=== PATIENT | female | born 1930 | race Caucasian/White ===

== ENCOUNTER 2016-07-28 06:47 | Emergency (ER) | payer MEDICARE ==
[~2016-07-28] VITALS: Ht 157.5 cm; Wt 58.5 kg
[~2016-07-28 06:47] MED LIST: ALPR0.5T PO; APIX2.5T PO; CEPH-264 PO; DIGO125T PO; DILT180C29 PO; DILT240C2 PO; DILT300C23 PO; LEVO88TA4 PO; LISI-334 PO; METO25TA9 PO; OMEP40CA5 PO; POTA10TA17 PO; SULF1TAB24 PO; TAMS0.4C97 PO; WARF5TAB PO; WARF5TAB7 PO; WARF7.5T6 PO; ZOLP10TA PO; ZOLP10TA4 PO; [UNRECOGNIZED DRUG - CODE] PO
[2016-07-28] MEDS ORDERED: ACETAMINOPHEN 500 MG TABLET PO ONE (07:30)
[2016-07-28] MEDS ORDERED: LIDOCAINE 1%/EPI 1:100,000 20 ML VIAL. IJ ONE (07:30)
[2016-07-28] MEDS ORDERED: LIDOCAINE/EPI/TETRACAINE TOPICAL GEL 3 ML. TP ONE (07:45)
--- NOTE | 2016-07-28 07:56 | RAD ---
Right tibia and fibula, 2 views, 07/28/2016: History: Injury, laceration The bony structures are demineralized. No fracture is identified. There is a soft tissue defect along the medial aspect of the lower leg. IMPRESSION: 1. Demineralization. 2. No acute bony abnormality is detected.
--- NOTE | 2016-07-28 08:03 | PHYS DOC ---
Past Medical History Past Medical History: A-Fib, GERD, High Cholesterol, Hypertension, Hypothyroid Past Surgical History: Appendectomy, Cholecystectomy, , Hysterectomy, Tonsillectomy Alcohol Use: None Drug Use: None Adult General Chief Complaint Chief Complaint: LACERATION/AVULSION [facility] HPI Patient is a 86 year old female who presents with right leg pain and laceration after her husbands home oxygen tank fell and hit her in the leg this morning. Her bleeding is controlled. She has local pain to the area of injury with shooting pains through her medial foot. She denies sensory changes. She is able to ambulate. She denies other injury. States tetanus vaccine within the past 2 years. Review of Systems Review of Systems Constitutional: Denies fever or chills [] Eyes: Denies change in visual acuity, redness, or eye pain [] HENT: Denies nasal congestion or sore throat [] Respiratory: Denies cough or shortness of breath [] Cardiovascular: No additional information not addressed in HPI [] GI: Denies abdominal pain, nausea, vomiting, bloody stools or diarrhea [] : Denies dysuria or hematuria [] Musculoskeletal: Denies back pain [] Integument: Denies rash [] Neurologic: Denies headache, focal weakness or sensory changes [] Endocrine: Denies polyuria or polydipsia [] Current Medications Current Medications Current Medications Medications (Trade) Dose Ordered Sig/Carmen Start Time Stop Time Status Last Admin Dose Admin Acetaminophen (Tylenol) 500 mg 1X ONCE 07/28/16 07:30 07/28/16 07:31 DC 07/28/16 07:25 500 MG Lidocaine/ Epinephrine (Let Topical) 3 ml 1X ONCE 07/28/16 07:45 07/28/16 07:46 DC 07/28/16 07:59 3 ML Lidocaine/ Epinephrine (Xylocaine 1%-Epi 1:100,000) 20 ml 1X ONCE 07/28/16 07:30 07/28/16 07:31 DC 07/28/16 07:25 20 ML Allergies Allergies Allergies Coded Allergies Type Severity Reaction Last Updated Verified codeine Allergy Severe Shortness of Air 08/25/14 Yes promethazine Allergy Severe Anaphylaxis 08/25/14 Yes Physical Exam Physical Exam Constitutional: Well developed, well nourished, no acute distress, non-toxic appearance. [] HENT: Normocephalic, atraumatic, bilateral external ears normal, oropharynx moist, nose normal. [] Eyes: PERRLA, EOMI. [] Neck: Normal range of motion, supple. [] Cardiovascular:Heart rate regular rhythm [] Lungs & Thorax: Bilateral breath sounds clear to auscultation [] Abdomen: Bowel sounds normal, soft, no tenderness. [] Skin: Warm, dry, no erythema, no rash. [] Back: Normal range of motion. [] Extremities: RLE: No obvious bony deformity; has 7cm V-shaped gaping laceration with fatty exposure to distal medial leg proximal to the ankle with no active bleeding; Has local soft tissue tenderness with no bony tenderness; knee full rom, ankle df/pf, toes df/pf; SILT [place]/sa/sp/dp/tib distributions; equal dp and pt pulses bilaterally. Ambulatory with a steady gait. Neurologic: Alert and oriented X 3, normal motor function, normal sensory function, no focal deficits noted. [] Psychologic: Affect normal, judgement normal, mood normal. [] Current Patient Data Vital Signs Vital Signs Date Time Temp Pulse Resp B/P Pulse Ox O2 Delivery O2 Flow Rate FiO2 07/28/16 09:10 82 18 179/92 96 Room Air 07/28/16 07:10 97.8 97.8 Radiology/Procedures Radiology/Procedures X-ray right tib-fib as interpreted by me with no acute osseous abnormality, obvious soft tissue defect at distal portion of leg Course & Med Decision Making Course & Med Decision Making Pertinent Labs and Imaging studies reviewed. (See chart for details) She tolerated lac repair well. She is ambulatory with a steady gait and wants to go home. Return precautions given. She understood and agrees with plan. Dragon Disclaimer Dragon Disclaimer This electronic medical record was generated, in whole or in part, using a voice recognition dictation system. Laceration Repair Lac Repair Indication: Right leg laceration Procedure: The patient was placed in the appropriate position and anesthesia around the laceration was LET gel followed by lidocaine with epinephrine 8ml. The area was then cleaned with pressurized normal saline. The laceration was closed with 4-0 ethilon suture, #7 simple interrupted. The wound area was then dressed with gauze. Total repaired wound length: 7cm. The patient tolerated the procedure well. Complications: none. Departure Departure Impression: Primary Impression: Laceration of right lower leg Disposition: 01 HOME, SELF-CARE Condition: STABLE Referrals: MARTHA AVENDANO MD (PCP) Patient Instructions: Laceration Care, Adult, [id number] Additional Instructions: Your stitches need to be removed in 2 weeks. Use soap and water to keep it clean. Follow-up with your primary care doctor or return to the emergency department for suture removal. Return for any concerns otherwise. Problem Qualifiers Primary Impression: Laceration of right lower leg Encounter type: initial encounter Qualified Code: S81.811A - Laceration without foreign body, right lower leg, initial encounter Lisa LOPEZ MD Jul 28, 2016 08:03
[2016-07-28 09:10] VITALS: BP 179/92
== END 2016-07-28 09:14 | disposition home or self-care (01) ==
LOC: ER 06:47
DX: S81.811A Laceration without foreign body, right lower leg, initial encounter (principal); E78.00 Pure hypercholesterolemia, unspecified; I10 Essential (primary) hypertension; E03.9 Hypothyroidism, unspecified; Z88.5 Allergy status to narcotic agent; Z88.8 Allergy status to other drugs, medicaments and biological substances; W01.198A Fall on same level from slipping, tripping and stumbling with subsequent striking against other object, initial encounter; Y93.89 Activity, other specified; Y92.89 Other specified places as the place of occurrence of the external cause; Y99.8 Other external cause status
CPT/HCPCS: 12002; 73590; 99284; J3490

== ENCOUNTER → 2016-08-03 | Outpatient (CLI) | payer MEDICARE ==
[2016-07-28 09:10] VITALS: BP 179/92
[2016-08-03 12:45] LABS: CHOLESTEROL/HDL RATIO 2.9
--- NOTE | 2016-08-03 13:14 | RAD ---
APPROVED REPORT Patient Location: OUT-PATIENT Laterality:Bilateral Indications PAD Doppler Spectral Velocity Analysis Right Left pCCA 69/12 cm/spCCA 109/12 cm/s mCCA 68/14 cm/smCCA 89/13 cm/s dCCA 51/16 cm/sdCCA 65/19 cm/s Bulb 38/13 cm/sBulb 76/15 cm/s ECA 107/ cm/sECA 63/ cm/s pICA 99/28 cm/spICA 156/44 cm/s Reji 100/22 cm/smICA 119/33 cm/s dICA 84/27 cm/sdICA 104/26 cm/s Vert. 54/ cm/sVert. 47/ cm/s Subcl. 90/ cm/sSubcl. 135/ cm/s ICA/CCA 1.45ICA/CCA 1.43 Findings Grayscale images of the bilateral common carotid arteries, internal and external carotid arteries as well as vertebral were obtained. The right arterial system has mild to moderate intimal thickening b ut no gross evidence of obstructive plaque. The left internal carotid artery has moderate obstructiv e plaque in the proximal segment. There is also moderate diffuse atherosclerosis of the carotid bulb on the left side. Velocity profiles on the right arterial system did not demonstrate any evidence of high-grade stenosi s. On the left at the level of the proximal internal carotid artery there is approximately a 50-69% stenosis based on velocity criteria. Although the ICA to CCA ratio is less than 2 based on flow turb ulence this appears to be a moderate lesion. Bilateral vertebral velocities are antegrade. No obvious increase in velocities in the subclavian ve ssels bilaterally. Critical Notification Critical Value: No <Conclusion> 1. Moderate 50-69% stenosis of the left internal carotid artery. Otherwise no significant obstructi ve disease.
== END | disposition home or self-care (01) ==
LOC: US 11:44
PROVIDERS: ATTEND Internal Medicine Cardiovascular Disease
DX: I25.10 Atherosclerotic heart disease of native coronary artery without angina pectoris (principal); I65.22 Occlusion and stenosis of left carotid artery; I73.9 Peripheral vascular disease, unspecified; E78.5 Hyperlipidemia, unspecified
CPT/HCPCS: 36415; 80061; 93880

== ENCOUNTER 2016-10-02 22:28 | Inpatient (IN) | payer MEDICARE ==
[~2016-10-02] VITALS: Ht 157.5 cm; Wt 56.2 kg
[~2016-10-02 22:28] MED LIST changes: +WARF-78 PO; -WARF5TAB PO
--- NOTE | 2016-10-02 22:58 | PHYS DOC ---
Past Medical History Past Medical History: A-Fib, GERD, High Cholesterol, Hypertension, Hypothyroid Past Surgical History: Appendectomy, Cholecystectomy, , Hysterectomy, Tonsillectomy Alcohol Use: None Drug Use: None Adult General Chief Complaint Chief Complaint: DIZZY/LIGHT HEADED HPI HPI This is an 86 yo old female who felt dizzy lightheaded with some mild shortness of breath prior to arrival. She felt like she could lose consciousness but did not. She does have history of A. fib on Cardizem and eliquis. She states she feels mildly week upon arrival but denies any chest pain or SOB. She denies any headache. She denies any fever or chills. Review of Systems Review of Systems Constitutional: Denies fever or chills [] Eyes: Denies change in visual acuity, redness, or eye pain [] HENT: Denies nasal congestion or sore throat [] Respiratory: Denies cough or shortness of breath [] Cardiovascular: No additional information not addressed in HPI [] GI: Denies abdominal pain, nausea, vomiting, bloody stools or diarrhea [] : Denies dysuria or hematuria [] Musculoskeletal: Denies back pain or joint pain [] Integument: Denies rash or skin lesions [] Neurologic: Denies headache, focal weakness or sensory changes [] Endocrine: Denies polyuria or polydipsia [] Current Medications Current Medications Current Medications Medications (Trade) Dose Ordered Sig/Carmen Start Time Stop Time Status Last Admin Dose Admin Ondansetron HCl (Zofran) 4 mg PRN Q8HRS PRN 10/02/16 23:45 10/03/16 23:44 Allergies Allergies Allergies Coded Allergies Type Severity Reaction Last Updated Verified codeine Allergy Severe Shortness of Air 08/25/14 Yes promethazine Allergy Severe Anaphylaxis 08/25/14 Yes Physical Exam Physical Exam Constitutional: Well developed, well nourished, no acute distress, non-toxic appearance. [] HENT: Normocephalic, atraumatic, bilateral external ears normal, oropharynx moist, no oral exudates, nose normal. [] Eyes: PERRLA, EOMI, conjunctiva normal, no discharge. [] Neck: Normal range of motion, no tenderness, supple, no stridor. [] Cardiovascular:Heart rate regular with irregular rhythm, no murmur [] Lungs & Thorax: Bilateral breath sounds clear to auscultation [] Abdomen: Bowel sounds normal, soft, no tenderness, no masses, no pulsatile masses. [] Skin: Warm, dry, no erythema, no rash. [] Back: No tenderness, no CVA tenderness. [] Extremities: No tenderness, no cyanosis, no clubbing, ROM intact, no edema. [] Neurologic: Alert and oriented X 3, normal motor function, normal sensory function, no focal deficits noted. [] Psychologic: Affect normal, judgement normal, mood normal. [] Current Patient Data Vital Signs Vital Signs Date Time Temp Pulse Resp B/P Pulse Ox O2 Delivery O2 Flow Rate FiO2 10/02/16 23:30 70 16 149/65 96 Room Air 10/02/16 22:30 97.7 97.7 Lab Values Laboratory Tests Test 10/02/16 23:10 10/02/16 23:25 White Blood Count 7.9x10^3/uL (4.0-11.0) Red Blood Count 3.89x10^6/uL (3.50-5.40) Hemoglobin 12.3g/dL (12.0-15.5) Hematocrit 36.6% (36.0-47.0) Mean Corpuscular Volume 94fL (79-100) Mean Corpuscular Hemoglobin 32pg (25-35) Mean Corpuscular Hemoglobin Concent 34g/dL (31-37) Red Cell Distribution Width 16.3% (11.5-14.5) H Platelet Count 216x10^3/uL (140-400) Neutrophils (%) (Auto) 71% (31-73) Lymphocytes (%) (Auto) 21% (24-48) L Monocytes (%) (Auto) 6% (0-9) Eosinophils (%) (Auto) 1% (0-3) Basophils (%) (Auto) 1% (0-3) Neutrophils # (Auto) 5.6x10^3uL (1.8-7.7) Lymphocytes # (Auto) 1.6x10^3/uL (1.0-4.8) Monocytes # (Auto) 0.5x10^3/uL (0.0-1.1) Eosinophils # (Auto) 0.1x10^3/uL (0.0-0.7) Basophils # (Auto) 0.0x10^3/uL (0.0-0.2) Sodium Level 141mmol/L (136-145) Potassium Level 4.6mmol/L (3.5-5.1) Chloride Level 106mmol/L (98-107) Carbon Dioxide Level 25mmol/L (21-32) Anion Gap 10 (6-14) Blood Urea Nitrogen 16mg/dL (7-20) Creatinine 0.7mg/dL (0.6-1.0) Estimated GFR (Cockcroft-Gault) 79.3 Glucose Level 104mg/dL (70-99) H Calcium Level 8.9mg/dL (8.5-10.1) Troponin I Quantitative < 0.017ng/mL (0.000-0.055) Urine Collection Type Unknown Urine Color Yellow Urine Clarity Clear Urine pH 7.0 Urine Specific [place] 1.020 Urine Protein 30mg/dL (NEG-TRACE) Urine Glucose (UA) Negativemg/dL (NEG) Urine Ketones (Stick) Negativemg/dL (NEG) Urine Blood Negative (NEG) Urine Nitrite Negative (NEG) Urine Bilirubin Negative (NEG) Urine Urobilinogen Dipstick 0.2mg/dL (0.2 mg/dL) Urine Leukocyte Esterase Small (NEG) Urine RBC 0/HPF (0-2) Urine WBC 1-4/HPF (0-4) Urine Squamous Epithelial Cells Few/LPF Urine Bacteria Few/HPF (0-FEW) Urine Hyaline Casts Few/HPF Urine Mucus Marked/LPF Laboratory Tests 10/02/16 23:10 Laboratory Tests 10/02/16 23:10 EKG EKG EKG as interpreted by me shows an irregular rhythm with a rate of 64 bpm. There is some prolonged QT interval at 468 ms with a QTc interval of 482 ms. This is consistent with atrial fibrillation with a slow ventricular response. This EKG does not meet STEMI criteria. Radiology/Procedures Radiology/Procedures [] Course & Med Decision Making Course & Med Decision Making Pertinent Labs and Imaging studies reviewed. (See chart for details) This 86-year-old female is having symptomatic feeling of lightheadedness and dizziness with some mild shortness breath prior to arrival now feels improved upon rest and denies any shortness of breath. Her EKG does reveal atrial fibrillation which she has had before but there does appear to be a slow ventricular response. After workup was unremarkable. Her EKG does show atrial fibrillation with a slow ventricular response. Light of fact that she is having some weakness upon my evaluation I will be admitting her to the hospital under the hospitalist, Dr. Avendano, for further evaluation. I discussed the case with Dr. Avendano who agreed to accept the patient for further evaluation treatment. Dragon Disclaimer Dragon Disclaimer This electronic medical record was generated, in whole or in part, using a voice recognition dictation system. Departure Departure Impression: Primary Impression: Syncope Additional Impression: Atrial fibrillation Disposition: ADMITTED INPATIENT Admitting Physician: Martha Avendano Condition: STABLE Referrals: MARTHA AVENDANO MD (PCP) Problem Qualifiers DENTON LINARES DO Oct 02, 2016 22:58
[2016-10-02 23:30] LABS: BASO % 1 % (0-3); EOS % 1 % (0-3); HEMATOCRIT 36.6 % (36.0-47.0); HEMOGLOBIN 12.3 g/dL (12.0-15.5); LYMPH # 1.6 x10^3/uL (1.0-4.8); LYMPH % 21 % (24-48); MEAN CORPUSCULAR HEMOGLOBIN 32 pg (25-35); MEAN CORPUSCULAR HGB CONC 34 g/dL (31-37); MEAN CORPUSCULAR VOLUME 94 fL (79-100); MONO % 6 % (0-9); NEUT % 71 % (31-73); PLATELET COUNT 216 x10^3/uL (140-400); RED BLOOD COUNT 3.89 x10^6/uL (3.50-5.40); RED CELL DISTRIBUTION WIDTH 16.3 % (11.5-14.5); WHITE BLOOD COUNT 7.9 x10^3/uL (4.0-11.0)
[2016-10-02 23:32] LABS: BILIRUBIN,URINE NEGATIVE (NEG); GLUCOSE,URINE NEGATIVE (NEG); NITRITE,URINE NEGATIVE (NEG); PROTEIN,URINE 30 mg/dL (NEG-TRACE); UROBILINOGEN,URINE 0.2 mg/dL (0.2 mg/dL)
[2016-10-02 23:38] LABS: BACTERIA,URINE FEW /HPF (0-FEW); RBC,URINE 0 /HPF (0-2); SQUAMOUS EPITHELIAL CELL,UR FEW /LPF
[2016-10-02 23:42] LABS: CALCIUM 8.9 mg/dL (8.5-10.1); CREATININE 0.7 mg/dL (0.6-1.0); GFR 79.3; POTASSIUM 4.6 mmol/L (3.5-5.1)
[2016-10-02] MEDS ORDERED: ONDANSETRON PF 4 MG/2 ML VIAL. IV PRN (23:45)
[2016-10-03] VITALS (7 sets, daily range): BP systolic 111–171; BP diastolic 55–82
--- NOTE | 2016-10-03 01:51 | ACF ---
Admit Criteria Forms Admit Criteria Forms Admit Criteria Forms SYNCOPE Clinical Indications for Admission to Inpatient Care ( Place 'X' for any and all applicable criteria): Admission is indicated for syncope and ANY ONE of the following (1)(2)(3)(4)(5) (6)(7) : [X]I. Inpatient admission required rather than observation care (Also use Syncope: Observation Care Criteria as appropriate) because of ANY ONE of the following: [ ]a) Hemodynamic instability that is severe or persistent [X]b) Cardiac arrhythmias of immediate concern identified or strongly suspected (eg, needs electrophysiologic study) [ ]c) Acute coronary syndrome identified (Also use Myocardial Infarction or Angina Criteria form ) [ ]d) Structural cardiac disorder (eg, aortic stenosis) suspected as cause that requires immediate correction [ ]e) Respiratory symptoms (eg, dyspnea, tachypnea) that are severe or persistent [ ]f) Neurologic signs or symptoms that are severe or persistent ( eg, stroke, seizures, altered mental status) [ ]g) Severe electrolyte abnormalities requiring inpatient care [ ]h) Supplemental oxygen or respiratory treatment for over 24 hrs that are performable only in acute inpatient setting [ ]i) IV fluid to replace significant ongoing (eg, for over 24 hrs ) losses (>3 L/m2 per day) [ ]j) Continuous intravenous infusion of anticoagulation, platelet inhibitor, vasoactive, or antiarrhythmic medication(15)(16) [ ]k) Pulmonary artery catheter monitoring [ ]l) Temporary pacemaker placement(17) [ ]m) Emergent cardioversion(18) [ ]n) Other conditions, treatment or monitoring requiring inpatient admission [ ]II. Suspicion of imminently dangerous cause (eg, rare causes like pericardial tamponade, pulmonary embolism) [ ]III. Syncope causing severe injury requiring hospitalization Extended stay beyond goal length of stay may be needed for(28) [ ]a) Dangerous arrhythmia(15)(23)(27)(29) [ ]b) Myocardial ischemia [ ]c) Seizure disorder [ ]d) Syncope-related injuries The original [facility] [employer] content created by [facility] [employer] has been revised. The portions of the content which have been revised are identified through the use of italic text or in bold, and [facility] [employer] has neither reviewed nor approved the modified material. All other unmodified content is copyright [facility] [employer]. Please see references footnoted in the original [facility] edition 2016 NAZIA ALONZO Oct 03, 2016 01:51
--- NOTE | 2016-10-03 07:11 | EKG ---
[facility] [address] [place] [address] Test Date: 2016-10-02 Test Time: 22:35:01 Pat Name: BILL CRUZ Department: Room: 438 1 Gender: F [employer]andy [employer]utter Machine: : [id number] Requested By: DENTON LINARES Order Number: [id number] Reading MD: Marylin Olmedo Measurements Intervals [place] Rate: 64 P: MA: QRS: -19 QRSD: 86 T: 16 QT: 468 QTc: 482 Interpretive Statements ATRIAL FIBRILLATION LEFTWARD AXIS QRS(T) CONTOUR ABNORMALITY CONSIDER ANTEROSEPTAL MYOCARDIAL DAMAGE Electronically Signed On 10-03-2016 19:23:44 CDT by Marylin Olmedo
--- NOTE | 2016-10-03 07:43 | RAD ---
EXAM: Chest, single view. HISTORY: Syncope. COMPARISON: 04/08/2016. FINDINGS: A frontal view of the chest is obtained. There is no infiltrate, effusion or pneumothorax. There is stable mild interstitial prominence. There is stable cardiomegaly. IMPRESSION: 1. No acute pulmonary finding. 2. Stable mild cardiomegaly.
--- NOTE | 2016-10-03 11:47 | PDOC2 ---
CONSULT Date of Consult Date of Consult DATE: 10/03/16 TIME: 11:40 Reason for Consult Reason for Consult: Syncope. Referring Physician Referring Physician: Dr. Feng Identification/Chief Complaint Chief Complaint passing out Source Source: Patient History of Present Illness Reason for Visit: The patient is a pleasant 86-year-old female with a history of chronic atrial fibrillation reports feeling lightheaded and having a near syncopal a possible syncopal episode yesterday. Her family reports she stated feeling weak and dizzy and then appears to be have become nonresponsive for 10-20 seconds. She then awoke and reported continued to feel lightheaded and dizzy. She denies any chest pain. She denies any shortness of breath. EKG in the ER showed atrial fibrillation. This is been chronic and treated with Eliquis and rate control medications. This morning she is feeling much better. She denies any dizziness, chest pain, shortness of breath or lightheadedness today. She is followed in the office on a regular basis. Past Medical History Cardiovascular: AFIB, HTN, Syncope, Hyperlipidemia Pulmonary: No pertinent hx CENTRAL NERVOUS SYSTEM: Other GI: GERD Heme/Onc: No pertinent hx, Other Hepatobiliary: No pertinent hx Psych: Anxiety Musculoskeletal: Osteoarthritis Rheumatologic: No pertinent hx Infectious disease: No pertinent hx Endocrine: Hypothyroidism Past Surgical History Past Surgical History: Appendectomy, Cholecystectomy, , Tonsillectomy , Hysterectomy Family History Family History: Heart Disease Social History No ALCOHOL: none Drugs: None Lives: with Family Current Problem List Problem List Problems Medical Problems: (1) Atrial fibrillation Status: Acute (2) Syncope Status: Acute Current Medications Current Medications Current Medications Ondansetron HCl (Zofran) 4 mg PRN Q8HRS PRN IV NAUSEA/VOMITING; Start 10/02/16 at 23:45; Stop 10/03/16 at 23:44 Active Scripts Active Diltiazem 24HR Cd (Diltiazem Hcl) 300 Mg Cap.er.24h 300 Mg PO DAILYWSUP sig: one p.o. daily with evening meal Keflex (Cephalexin) 500 Mg Capsule 2 Cap PO BID Eliquis (Apixaban) 2.5 Mg Tablet 2.5 Mg PO BID Reported Metoprolol Succinate ( Xl ) (Metoprolol Succinate) 25 Mg Tab.er.24h 1 Tab PO DAILY Zolpidem Tartrate 10 Mg Tablet 0.5 Tab PO QHS Omeprazole 40 Mg Capsule.dr 1 Cap PO DAILY Levothyroxine Sodium 88 Mcg Tablet Unknown Dose PO DAILY Potassium Citrate 10 Meq Tablet.er 1 Tab PO TID Allergies Allergies: Coded Allergies: codeine (Verified Allergy, Severe, Shortness of Air, 08/25/14) promethazine (Verified Allergy, Severe, Anaphylaxis, 08/25/14) pt stated that they called a code blue upon taking it ROS General: YES: Fatigue PSYCHOLOGICAL ROS: YES: Anxiety Cardiovascular: yes Lt Headedness, yes Other (syncope) Physical Exam General: No acute distress HEENT: Atraumatic Lungs: Clear to auscultation Heart: Other (irregularly irregular) Abdomen: Normal bowel sounds Extremities: No clubbing Vitals VITALS Vital Signs Date Time Temp Pulse Resp B/P Pulse Ox O2 Delivery O2 Flow Rate FiO2 10/03/16 10:47 98.1 76 18 165/55 98 Room Air 98.1 Labs Labs Laboratory Tests Test 10/02/16 23:10 10/02/16 23:25 White Blood Count 7.9x10^3/uL (4.0-11.0) Red Blood Count 3.89x10^6/uL (3.50-5.40) Hemoglobin 12.3g/dL (12.0-15.5) Hematocrit 36.6% (36.0-47.0) Mean Corpuscular Volume 94fL (79-100) Mean Corpuscular Hemoglobin 32pg (25-35) Mean Corpuscular Hemoglobin Concent 34g/dL (31-37) Red Cell Distribution Width 16.3% (11.5-14.5) Platelet Count 216x10^3/uL (140-400) Neutrophils (%) (Auto) 71% (31-73) Lymphocytes (%) (Auto) 21% (24-48) Monocytes (%) (Auto) 6% (0-9) Eosinophils (%) (Auto) 1% (0-3) Basophils (%) (Auto) 1% (0-3) Neutrophils # (Auto) 5.6x10^3uL (1.8-7.7) Lymphocytes # (Auto) 1.6x10^3/uL (1.0-4.8) Monocytes # (Auto) 0.5x10^3/uL (0.0-1.1) Eosinophils # (Auto) 0.1x10^3/uL (0.0-0.7) Basophils # (Auto) 0.0x10^3/uL (0.0-0.2) Sodium Level 141mmol/L (136-145) Potassium Level 4.6mmol/L (3.5-5.1) Chloride Level 106mmol/L (98-107) Carbon Dioxide Level 25mmol/L (21-32) Anion Gap 10 (6-14) Blood Urea Nitrogen 16mg/dL (7-20) Creatinine 0.7mg/dL (0.6-1.0) Estimated GFR (Cockcroft-Gault) 79.3 Glucose Level 104mg/dL (70-99) Calcium Level 8.9mg/dL (8.5-10.1) Troponin I Quantitative < 0.017ng/mL (0.000-0.055) Urine Collection Type Unknown Urine Color Yellow Urine Clarity Clear Urine pH 7.0 Urine Specific [place] 1.020 Urine Protein 30mg/dL (NEG-TRACE) Urine Glucose (UA) Negativemg/dL (NEG) Urine Ketones (Stick) Negativemg/dL (NEG) Urine Blood Negative (NEG) Urine Nitrite Negative (NEG) Urine Bilirubin Negative (NEG) Urine Urobilinogen Dipstick 0.2mg/dL (0.2 mg/dL) Urine Leukocyte Esterase Small (NEG) Urine RBC 0/HPF (0-2) Urine WBC 1-4/HPF (0-4) Urine Squamous Epithelial Cells Few/LPF Urine Bacteria Few/HPF (0-FEW) Urine Hyaline Casts Few/HPF Urine Mucus Marked/LPF Laboratory Tests Test 10/02/16 23:10 10/02/16 23:25 White Blood Count 7.9x10^3/uL (4.0-11.0) Red Blood Count 3.89x10^6/uL (3.50-5.40) Hemoglobin 12.3g/dL (12.0-15.5) Hematocrit 36.6% (36.0-47.0) Mean Corpuscular Volume 94fL (79-100) Mean Corpuscular Hemoglobin 32pg (25-35) Mean Corpuscular Hemoglobin Concent 34g/dL (31-37) Red Cell Distribution Width 16.3% (11.5-14.5) Platelet Count 216x10^3/uL (140-400) Neutrophils (%) (Auto) 71% (31-73) Lymphocytes (%) (Auto) 21% (24-48) Monocytes (%) (Auto) 6% (0-9) Eosinophils (%) (Auto) 1% (0-3) Basophils (%) (Auto) 1% (0-3) Neutrophils # (Auto) 5.6x10^3uL (1.8-7.7) Lymphocytes # (Auto) 1.6x10^3/uL (1.0-4.8) Monocytes # (Auto) 0.5x10^3/uL (0.0-1.1) Eosinophils # (Auto) 0.1x10^3/uL (0.0-0.7) Basophils # (Auto) 0.0x10^3/uL (0.0-0.2) Sodium Level 141mmol/L (136-145) Potassium Level 4.6mmol/L (3.5-5.1) Chloride Level 106mmol/L (98-107) Carbon Dioxide Level 25mmol/L (21-32) Anion Gap 10 (6-14) Blood Urea Nitrogen 16mg/dL (7-20) Creatinine 0.7mg/dL (0.6-1.0) Estimated GFR (Cockcroft-Gault) 79.3 Glucose Level 104mg/dL (70-99) Calcium Level 8.9mg/dL (8.5-10.1) Troponin I Quantitative < 0.017ng/mL (0.000-0.055) Urine Collection Type Unknown Urine Color Yellow Urine Clarity Clear Urine pH 7.0 Urine Specific [place] 1.020 Urine Protein 30mg/dL (NEG-TRACE) Urine Glucose (UA) Negativemg/dL (NEG) Urine Ketones (Stick) Negativemg/dL (NEG) Urine Blood Negative (NEG) Urine Nitrite Negative (NEG) Urine Bilirubin Negative (NEG) Urine Urobilinogen Dipstick 0.2mg/dL (0.2 mg/dL) Urine Leukocyte Esterase Small (NEG) Urine RBC 0/HPF (0-2) Urine WBC 1-4/HPF (0-4) Urine Squamous Epithelial Cells Few/LPF Urine Bacteria Few/HPF (0-FEW) Urine Hyaline Casts Few/HPF Urine Mucus Marked/LPF Assessment/Plan Assessment/Plan 1. Syncope. Episode of syncope as above associated with weakness and lightheadedness. Patient has chronic rate controlled atrial fibrillation on anticoagulation. Rhythm of the present time is an atrial fibrillation rate of 64. At this time to continue on telemetry. We'll recheck an echocardiogram. We' ll gradually increase activities while being monitored. 2. Hypertension. Continue medications with monitoring the patient's hypertension and orthostatics. 3. Hyperlipidemia. We'll check a lipid panel. 4. Hypothyroidism. TSH pending. 5. Gastroesophageal reflux disease. Continue present treatments. Thank you for allowing us to participate in the care of your patient. VIRIDIANA RAMIREZ MD Oct 03, 2016 11:47
[2016-10-03] MEDS ORDERED: ZOLPIDEM 5 MG TABLET. PO PRN (12:15)
--- NOTE | 2016-10-03 12:45 | PDOC ---
Provider Note Provider Note See admission H&P dictation #[id number] Impression: 1. Syncopal episode: 2. Atrial fibrillation with slow ventricular response: 3. Hypothyroidism: 4. Mildly abnormal UA: MARTHA AVENDANO MD Oct 03, 2016 12:45
[2016-10-03] MEDS ORDERED: ANTI-COAG MONITOR BY PHARMACY. MC PRN (13:00)
[2016-10-03] MEDS: PANTOPRAZOLE 40 MG TABLET.DR. PO SCH (14:03)
[2016-10-03] MEDS: APIXABAN 2.5 MG TABLET. PO SCH ×2 (14:03→20:30)
[2016-10-03] MEDS: POTASSIUM CITRATE 10 MEQ TABLET.ER PO SCH ×2 (14:03→20:30)
[2016-10-03] MEDS: LEVOTHYROXINE 88 MCG TABLET PO SCH (14:03)
[2016-10-03] MEDS ORDERED: ACETAMINOPHEN 325 MG TABLET. PO PRN (23:00)
--- NOTE | 2016-10-04 01:35 | HP ---
ADMIT DATE: 10/02/2016 ATTENDING PHYSICIAN: Martha Avendano M.D. CHIEF COMPLAINT: Syncope. HISTORY OF PRESENT ILLNESS: The patient is an 86-year-old female with a history of chronic atrial fibrillation and hypothyroidism. On the night prior to admission, she went to lay down and she started to have worsening shortness of breath and feeling like she could not breathe. She is not aware that her heart was beating excessively faster or not, it is always irregular, when she sat up she felt like she was able agree little bit better. If she tried to lay down she had more shortness of breath and she actually feels like she had a syncopal episode where she was unconscious for several seconds. Due to her worsening shortness of breath, she presented to the Emergency Room for further evaluation. She has been compliant with all of her medications. There is nothing unusual as far as her diet or activity through the day. She denied any chest pain. She has not had any lower extremity swelling. PAST MEDICAL HISTORY: Significant for prior TIA manifested by dysarthria, chronic atrial fibrillation, hypertension, hyperlipidemia, hypothyroidism, peripheral arterial disease, recurrent kidney stones. PAST SURGICAL HISTORY: Total hysterectomy, cholecystectomy, partial colectomy for bowel obstruction, appendectomy. SOCIAL HISTORY: She lives at home with her who she provides a significant amount of his care due to his end-stage COPD. She is a former smoker and quit in 2010. She very rarely uses alcohol. There is no substance abuse. ALLERGIES TO MEDICATIONS: CODEINE. MEDICATIONS: At home include Eliquis 2.5 mg p.o. b.i.d., diltiazem CD 300 mg p.o. daily, levothyroxine 88 mcg p.o. daily, Toprol-XL 25 mg p.o. daily, omeprazole 40 mg p.o. daily, potassium citrate 10 mEq p.o. t.i.d., Ambien 10 mg one half tablet at bedtime p.r.n. FAMILY HISTORY: Hypertension in her brothers and sisters. REVIEW OF SYSTEMS: The patient denies any recent illnesses. She denies any headaches. She does have fatigue that is relatively chronic. She is having some right shoulder, neck, muscle pain with spasm. She is swallowing without any difficulty. She denies any cough. She denies any chest pain. She denies any nausea, vomiting, diarrhea or constipation. She denies any melena. She is not having any urinary symptoms other than that, she goes frequently, but she does drink lots of fluids on daily basis. She denies any lower extremity swelling. She denies any focal paresthesia or weakness. She does still have some ankle pain from an injury sustained within the last year or so, but she does ambulate independently. Mood is doing good, although she does worry about her . She is still grieving her son who within the last year. PHYSICAL EXAMINATION: VITAL SIGNS: At the time of admission, temperature 97.7, pulse 65, respiratory rate 19, blood pressure 138/79, O2 sat 96% on room air. GENERAL: The patient is well developed and nourished female in no acute distress. She is alert and oriented. HEENT: The pupils are equal and round. The extraocular motions are intact. The sclerae are anicteric. Oropharynx is moist. NECK: Without JVD or bruit. CHEST: Clear to auscultation bilaterally with slightly decreased air movement throughout. CARDIOVASCULAR: Heart has an irregularly irregular rhythm without any murmur present. The rate appears to be controlled on telemetry it less than 100. ABDOMEN: Soft and nontender. There is no guarding or rebound. EXTREMITIES: Without edema. NEUROLOGIC: Motor strength is intact. Exam is nonfocal. PSYCHIATRIC: She is occasionally tearful when talking about her son, but otherwise she is appropriate. LABORATORY DATA: At the time of admission, WBC 7.9, hemoglobin 12.3, hematocrit 36.6, platelets 216. UA shows small amount of leukocyte esterase, 1-4 wbc's, few bacteria and marked mucus, few squamous epithelial cells. Troponin was less than 0.017. Sodium 141, potassium 4.6, chloride 106, CO2 of 25, BUN 16, creatinine 0.7, glucose 104. IMAGING: Chest x-ray shows no acute pulmonary findings with stable mild cardiomegaly. EKG shows an irregular rhythm with a rate of 64 with some prolonged QT interval at 468 milliseconds with a corrected QT interval 482 milliseconds, no evidence of ischemic changes. IMPRESSION: 1. Syncopal episode, likely due to atrial fibrillation with slow ventricular response. 2. Chronic atrial fibrillation with slow ventricular response. 3. Hypothyroidism. PLAN: The patient is admitted. She is placed on telemetry for monitoring. We will resume her Cardizem for now, but hold her Toprol and see how she does with that. We will continue her other medications. She is feeling much better already at this point in time. If she continues to do well and the echocardiogram that was ordered by Cardiology and consultation with them, then she could possibly be discharged tomorrow. MARTHA AVENDANO MD DR: SHARDA/mendy JOB#: [id number] / [id number] CLARI
[2016-10-04 03:04] VITALS: BP 152/78
[2016-10-04 04:15] LABS: CALCIUM 8.6 mg/dL (8.5-10.1); CREATININE 0.7 mg/dL (0.6-1.0); GFR 79.3; POTASSIUM 3.9 mmol/L (3.5-5.1)
[2016-10-04 04:16] LABS: CHOLESTEROL/HDL RATIO 2.9
[2016-10-04] MEDS: PANTOPRAZOLE 40 MG TABLET.DR. PO SCH (06:06)
[2016-10-04] MEDS: LEVOTHYROXINE 88 MCG TABLET PO SCH (06:06)
[2016-10-04 07:00] VITALS: BP 179/71
--- NOTE | 2016-10-04 08:27 | PDOC ---
SUBJECTIVE Subjective No problems last night. No shortness of breath. No chest pain. Contemplating possibly doing a pacemaker which was suggested in the past. OBJECTIVE Vital Signs Vital Signs Date Time Temp Pulse Resp B/P Pulse Ox O2 Delivery O2 Flow Rate FiO2 10/04/16 03:04 98.3 62 18 152/78 95 Room Air 98.3 10/03/16 23:24 98.3 62 18 111/63 98 Room Air 98.3 10/03/16 20:20 Room Air 10/03/16 19:59 97.9 80 18 152/64 95 Room Air 97.9 10/03/16 17:38 73 144/63 10/03/16 15:00 97.8 73 18 144/63 97 Room Air 97.8 10/03/16 10:47 98.1 76 18 165/55 98 Room Air 98.1 PHYSICAL EXAM Physical Exam General: No acute distress. Mental status: Alert and oriented. Chest: Clear to auscultation. Fair air movement CV: Rate controlled. Did have some episodes of tachycardia through the course of the night on telemetry. Irregularly irregular rhythm. No murmur. Abdomen: Normal bowel sounds. Soft. Not distended. No tenderness. No guarding. No rebound. Extremities: No lower extremity edema. ASSESSMENT/PLAN Assessment/Plan 1. Syncopal episode: Probably related to arrhythmia. Echocardiogram today. Continue per cardiology's recommendations. 2. Atrial fibrillation with slow ventricular response: Continue anticoagulation until decision made if there is going to be some procedure done. Restarted Cardizem. May need to restart a lower dose of the beta laura. Defer to cardiology. 3. Hypothyroidism: Stable. Continue medication. 4. Mildly abnormal UA: Room and reculture negative. 5. Disposition: Could go home today depending on cardiology's recommendations. Problems: COMMENT Lab Laboratory Tests Test 10/04/16 03:28 Sodium Level 146mmol/L (136-145) Potassium Level 3.9mmol/L (3.5-5.1) Chloride Level 110mmol/L (98-107) Carbon Dioxide Level 29mmol/L (21-32) Anion Gap 7 (6-14) Blood Urea Nitrogen 12mg/dL (7-20) Creatinine 0.7mg/dL (0.6-1.0) Estimated GFR (Cockcroft-Gault) 79.3 Glucose Level 88mg/dL (70-99) Calcium Level 8.6mg/dL (8.5-10.1) Triglycerides Level 57mg/dL (0-150) Cholesterol Level 189mg/dL (0-200) LDL Cholesterol, Calculated 112mg/dL (0-100) VLDL Cholesterol, Calculated 11mg/dL (0-40) HDL Cholesterol 66mg/dL (40-60) Cholesterol/HDL Ratio 2.9 Thyroid Stimulating Hormone (TSH) 2.193uIU/mL (0.358-3.74) MARTHA AVENDANO MD Oct 04, 2016 08:27
[2016-10-04 11:00] VITALS: BP 165/82
--- NOTE | 2016-10-04 12:01 | PDOC ---
EBER MELISSA COOLING TOWER OPERATOR 10/04/16 1201: CARDIO Progress Notes Date and Time Date of Service 10/02/2016 Time of Evaluation 1151 Subjective Subjective: No Chest Pain, No shortness of breath, No Palpitations, No Dizziness, Other (no further syncope; wants to go home) Vitals Vitals Vital Signs Date Time Temp Pulse Resp B/P Pulse Ox O2 Delivery O2 Flow Rate FiO2 10/04/16 07:00 97.8 74 18 179/71 97 Room Air 97.8 Weight Weight [ ] Laboratory Labs Laboratory Tests Test 10/04/16 03:28 Sodium Level 146mmol/L (136-145) Potassium Level 3.9mmol/L (3.5-5.1) Chloride Level 110mmol/L (98-107) Carbon Dioxide Level 29mmol/L (21-32) Anion Gap 7 (6-14) Blood Urea Nitrogen 12mg/dL (7-20) Creatinine 0.7mg/dL (0.6-1.0) Estimated GFR (Cockcroft-Gault) 79.3 Glucose Level 88mg/dL (70-99) Calcium Level 8.6mg/dL (8.5-10.1) Triglycerides Level 57mg/dL (0-150) Cholesterol Level 189mg/dL (0-200) LDL Cholesterol, Calculated 112mg/dL (0-100) VLDL Cholesterol, Calculated 11mg/dL (0-40) HDL Cholesterol 66mg/dL (40-60) Cholesterol/HDL Ratio 2.9 Thyroid Stimulating Hormone (TSH) 2.193uIU/mL (0.358-3.74) Microbiology Micro Microbiology 10/02/16 Urine Culture - Preliminary, Resulted 10/02/16 Urine Culture Result 1 (KIM) - Preliminary, Resulted Physical Exam HEENT: Neck Supple W Full Motion Chest: Symmetric LUNGS: Clear to Auscultation Heart: S1S2, irregularly irregular, other (tele: atrial fib; intermittent RVR; no evidence of bradycardia) Abdomen: Soft N/T Extremities: No Edema Neurology: alert, oriented, follow commands Assessment Assessment 1. syncope no bradydysrhythmias on telemetry and currently without indication for PPM also reviewed last 2 office notes and no indication there of need for PPM intermittent RVR - likely related to cessation of beta-blockers consider event monitor @ discharge 2. chronic atrial fib on Eliquis for stroke prevention BB held after ? of syncope; currently treated only with CCB and rate poorly controlled - recommend resuming BB and giving in the a.m. TSH WNL 3. Hypertension mildly elevated - ? BB related 4. Hyperlipidemia LDLs > 100 statin intolerance ESTEBAN WILLAMS MD 10/04/16 2206: CARDIO Progress Notes Plan Plan Pt. seen and examined. Agree with above GANG LEADER note. No acute events overnight. No new tele abn. Normal cardiac exam with irregular heart rhythm syncope of unclear etiology, cannot rule out bradyarrhythmia. By patients description, does not appear to be tachyarrhythmia We have placed a monitor on her. I discussed possibility of pacemaker with her She understands. Will await results of monitor, may then consider implantable loop recorder. EBER MELISSA COOLING TOWER OPERATOR Oct 04, 2016 12:01 ESTEBAN WILLAMS MD Oct 04, 2016 22:06
[2016-10-04] MEDS: APIXABAN 2.5 MG TABLET. PO SCH (12:59)
[2016-10-04] MEDS: POTASSIUM CITRATE 10 MEQ TABLET.ER PO SCH ×2 (13:00→16:07)
[2016-10-04 15:00] VITALS: BP 154/83
--- NOTE | 2016-10-04 16:49 | DISCH ---
DISCHARGE INSTRUCTIONS Condition on Discharge Condition on Discharge: Stable Activity After Discharge Activity Instructions for Disc: Activity as tolerated Diet after Discharge Diet after Discharge: Cardiac Contacting the DR. after DC Call your doctor for: If your condition worsens Follow-Up Follow up with: Dr Avendano in 1-2 weeks Follow Up With: Cardiology in 2 weeks MARTHA AVENDANO MD Oct 04, 2016 16:49
--- NOTE | 2016-10-14 12:51 | CARD ---
APPROVED REPORT EXAM: Two-dimensional and M-mode echocardiogram with Doppler and color Doppler. Other Information Quality : AverageHR: 82bpm Rhythm : Atrial Fibrillation INDICATION Syncope 2D DIMENSIONS RVDd3.5 (2.9-3.5cm)Left Atrium(2D)3.2 (1.6-4.0cm) IVSd0.8 (0.7-1.1cm)Aortic Root(2D)2.8 (2.0-3.7cm) LVDd4.5 (3.9-5.9cm)LVOT Diameter2.0 (1.8-2.4cm) PWd0.9 (0.7-1.1cm)LVDs3.0 (2.5-4.0cm) FS (%) 32.9 %SV57.0 ml LVEF(%)61.6 (>50%) Aortic Valve AoV Peak Bacilio.101.9cm/sAoV VTI18.2cm AO Peak GR.4.1mmHgLVOT Peak Bacilio.103.2cm/s LVOT VTI 21.01cmAO Mean GR.2mmHg GREGORY (VMAX)3.08sw2QWJ (VTI)3.68cm2 Mitral Valve MV E Dlcxjezr73.3cm/sMV DECEL KOIT144ya MV NRH04ijSCU (PHT)4.82cm2 Pulmonary Valve PV Peak Mdvrswnu40.7cm/sPV Peak Grad.3mmHg RVOT VTI11.1cm Tricuspid Valve TR P. Zdkepzcq829bc/sRAP [id number] TR Peak Gr.62ruAgOYJE79ffTm LEFT VENTRICLE The left ventricle is normal size. There is normal left ventricular wall thickness. Proximal septal t hickening is noted. Left ventricle systolic function is normal. The Ejection Fraction is 55-60%. Ther e is normal LV segmental wall motion. Unable to assess due to atrial fibrillation There is no ventric ular septal defect visualized. RIGHT VENTRICLE The right ventricle is normal size. The right ventricular systolic function is normal. ATRIA The left atrium size is normal. The right atrium appears borderline dilated. The interatrial septum i s intact with no evidence for an atrial septal defect or patent foramen ovale as noted on 2-D or Dopp ler imaging. AORTIC VALVE The aortic valve is moderately sclerotic. Doppler and Color Flow revealed mild to moderate aortic reg urgitation. There is no significant aortic valvular stenosis. MITRAL VALVE The mitral valve leaflets are calcified but open well . There is no evidence of mitral valve prolapse . There is no mitral valve stenosis. Doppler and Color Flow revealed mild mitral regurgitation. TRICUSPID VALVE The tricuspid valve leaflets are thickened , but open well. Doppler and Color Flow revealed moderate tricuspid regurgitation. There is no pulmonary hypertension. The PA pressure was estimated at 29 mmHg . There is no tricuspid valve stenosis. PULMONIC VALVE The pulmonary valve is normal in structure and function. Doppler and Color Flow revealed trace to mil d pulmonic valvular regurgitation. There is no pulmonic valvular stenosis. GREAT VESSELS The aortic root is normal in size. The ascending aorta is normal in size. Normal pulmonary venous kristy w (Doppler). The IVC is normal in size and collapses >50% with inspiration. PERICARDIAL EFFUSION There is no pleural effusion. There is no evidence of significant pericardial effusion. Critical Notification Critical Value: No <Conclusion> Left ventricle systolic function is normal. The Ejection Fraction is 55-60%. There is normal LV segmental wall motion. Mild to moderate aortic regurgitation. Mild mitral regurgitation. Moderate tricuspid regurgitation. The PA pressure was estimated at 29 mmHg. There is no evidence of significant pericardial effusion.
--- NOTE | 2016-11-11 07:29 | PDOC ---
Provider Note Provider Note See discharge summary dictation #[id number] MARTHA AVENDANO MD November 11, 2016 07:29
--- NOTE | 2016-11-11 09:43 | DS ---
DATE OF DISCHARGE: 10/04/2016 ATTENDING PHYSICIAN: Martha Avendano MD. CHIEF COMPLAINT: Syncope. HISTORY OF PRESENT ILLNESS: The patient is an 86-year-old female with a history of chronic atrial fibrillation who had worsening shortness of breath when she attempted to lie down for the night. She felt like she could not breath. She did not notice any sensation of tachycardia. She thinks that she may have actually had a syncopal episode due to the shortness of breath and was unconscious for several seconds. Due to her breathing situation and the possible syncopal episode, she presented to the Emergency Room for further evaluation. HOSPITAL COURSE: The patient was admitted. She was seen in consultation with Cardiology. She underwent monitoring during the hospitalization and she remained in atrial fibrillation with a relatively controlled rate with occasional brief episodes of rapid ventricular rate. She did have her beta laura held initially. She did not have any evidence of bradycardia during the hospitalization. Her thyroid test was unremarkable. She improved and had some adjustment of her medications, which she tolerated well. At the time of discharge, she was not having any breathing difficulties. There is no chest pain. She was tolerating her diet without any difficulty. PHYSICAL EXAMINATION: VITAL SIGNS: Stable. She was afebrile. Her heart rate was in the 60s-70s. She continued to be in atrial fibrillation throughout the stay. GENERAL: She was alert, in no distress. CHEST: Clear to auscultation with decreased air movement. HEART: Had an irregularly irregular rhythm, but with controlled rate, except for some brief episodes of tachycardia noted on telemetry. There is no murmur. ABDOMEN: Soft. EXTREMITIES: Without edema. DISCHARGE DIAGNOSES: 1. Syncopal episode, probably related to arrhythmia. 2. Atrial fibrillation with slow ventricular response and intermittently rapid ventricular response. 3. Hypothyroidism. 4. Abnormal urinalysis, which was negative for infection. DISCHARGE DIET: Cardiac diet. DISCHARGE ACTIVITIES: As tolerated. FOLLOWUP: The patient is to follow up with Dr. Avendano in 1-2 weeks. She is to follow up with Cardiology in 2 weeks. MEDICATIONS AT THE TIME OF DISCHARGE: Include Eliquis 2.5 mg p.o. b.i.d., diltiazem CD 300 mg p.o. daily, levothyroxine 88 mcg p.o. daily, omeprazole 40 mg p.o. daily, calcium citrate 10 mg p.o. t.i.d., Ambien 5 mg p.o. at bedtime p.r.n. Her metoprolol is being held at this time until evaluation as an outpatient. MARTHA AVENDANO MD DR: SHARDA/mendy JOB#: [id number] / [id number] CLARI
== END 2016-10-04 18:30 | disposition home or self-care (01) | DRG 310 ==
LOC: ER 22:28 → 4 NORTH 23:24
PROVIDERS: ADMIT Family Medicine; ATTEND Family Medicine
DX: I48.91 Unspecified atrial fibrillation (principal); E03.9 Hypothyroidism, unspecified; E78.00 Pure hypercholesterolemia, unspecified; E78.5 Hyperlipidemia, unspecified; I10 Essential (primary) hypertension; I73.9 Peripheral vascular disease, unspecified; F41.9 Anxiety disorder, unspecified; M19.90 Unspecified osteoarthritis, unspecified site; J44.9 Chronic obstructive pulmonary disease, unspecified; K21.9 Gastro-esophageal reflux disease without esophagitis; Z79.01 Long term (current) use of anticoagulants; Z82.49 Family history of ischemic heart disease and other diseases of the circulatory system; Z86.73 Personal history of transient ischemic attack (TIA), and cerebral infarction without residual deficits; Z87.442 Personal history of urinary calculi; Z87.891 Personal history of nicotine dependence; Z90.49 Acquired absence of other specified parts of digestive tract; Z90.710 Acquired absence of both cervix and uterus; Z98.891 History of uterine scar from previous surgery; Z90.89 Acquired absence of other organs; Z88.6 Allergy status to analgesic agent
CPT/HCPCS: 36415; 71010; 80048; 80061; 81001; 84443; 84484; 85027; 87086; 93005; 93306; 99285-25

== ENCOUNTER → 2016-11-12 | Outpatient (CLI) | payer MEDICARE ==
--- NOTE | 2016-11-12 15:09 | RAD ---
Indication injury one week ago. Closed head injury. Persistent pain. Noncontrast images of the head were obtained and are compared to an examination 03/28/2013. The calvarium appears unremarkable. The visualized paranasal sinuses appear normal. The ventricles and sulci within normal limits given the patient's age. There is some increased lucency in the deep white matter compatible with microvascular disease. There is no subdural or epidural hematoma. IMPRESSION: No acute finding seen in the head PQRS Compliance Statement: One or more of the following individualized dose reduction techniques were utilized for this examination: 1. Automated exposure control 2. Adjustment of the mA and/or kV according to patient size 3. Use of iterative reconstruction technique
== END | disposition home or self-care (01) ==
LOC: CT 14:27
PROVIDERS: ATTEND Internal Medicine Cardiovascular Disease
DX: R51 Headache (principal)
CPT/HCPCS: 70450

== ENCOUNTER 2017-01-21 06:51 | Inpatient (IN) | payer MEDICARE ==
[~2017-01-21] VITALS: Ht 167.6 cm; Wt 56.4 kg
[2017-01-21] VITALS (11 sets, daily range): BP systolic 114–142; BP diastolic 53–76
[2017-01-21] MEDS ORDERED: IV NORMAL SALINE 1000ML BAG 1,000 ML IV SCH (06:56)
[2017-01-21] MEDS ORDERED: 0.9 % SODIUM CHLORIDE 10 ML DISP.SYRIN. IV PRN ×2 (07:00→14:45)
--- NOTE | 2017-01-21 07:02 | PHYS DOC ---
Past Medical History Past Medical History: A-Fib, GERD, High Cholesterol, Hypertension, Hypothyroid Past Surgical History: Appendectomy, Cholecystectomy, , Hysterectomy, Tonsillectomy Smoking: Cigarettes, Quit Greater Than 1 Year Alcohol Use: None Drug Use: None Adult General Chief Complaint Chief Complaint: MECHANICAL FALL HPI HPI This patient is a very pleasant 86 year old female who was found down in a driveway earlier this morning as she had tripped and fallen over her hose while watering her plants. She been on the ground for approximately 10-15 minutes before a passerby found her on the ground with her right side down complaining of severe right hip pain. Patient denies loss of conscious, denies back or shoulder pain, denies abdominal pain prior to fall. At this point she'll he complains of right hip pain is severe in nature worse with range of motion and movements of that hip in any direction. It is 10 of 10 described as sharp and stabbing. There is no radiation of this pain to the back. Patient denies any loss of sensation in the lower leg denies any ankle or knee pain. Patient is no pain on the left and no back pain. Patient complains of no chest pain prior or after the fall. She complains of neck discomfort on the right side of her neck that is not midline. She denies any numbness and tingly to upper extremity's bilaterally. She remembers the fall reverse injury. She denies any logic deficits before or after the fall. She does have multiple medical problems to include hypertension, hyperlipidemia, high cholesterol, she was a prior smoker. Lives independently and ambulates without issue. During EMS transport she was given 5 mg of Versed, and 25 g of fentanyl for her comfort. She does last meal was 5:[address] Martha Avendano is her primary care doctor. Review of Systems Review of Systems Constitutional: Denies fever or chills [] Eyes: Denies change in visual acuity, redness, or eye pain [] HENT: Denies nasal congestion or sore throat [] Respiratory: Denies cough or shortness of breath [] Cardiovascular: No additional information not addressed in HPI [] GI: Denies abdominal pain, nausea, vomiting, bloody stools or diarrhea [] : Denies dysuria or hematuria [] Musculoskeletal: She planes complains primarily of neck pain and right hip pain Integument: Denies rash or skin lesions [] Neurologic: Denies headache, focal weakness or sensory changes [] Endocrine: Denies polyuria or polydipsia [] Current Medications Current Medications Current Medications Medications (Trade) Dose Ordered Sig/Carmen Start Time Stop Time Status Last Admin Dose Admin Fentanyl Citrate (Fentanyl 2ml Vial) 25 mcg PRN Q15MIN PRN 01/21/17 07:00 01/22/17 06:59 01/21/17 07:36 25 MCG Sodium Chloride (Normal Saline Flush) 10 ml QSHIFT PRN 01/21/17 07:00 01/21/17 07:36 10 ML Allergies Allergies Allergies Coded Allergies Type Severity Reaction Last Updated Verified codeine Allergy Severe Shortness of Air 08/25/14 Yes promethazine Allergy Severe Anaphylaxis 08/25/14 Yes Physical Exam Physical Exam Patient's vital signs within normal limits saturations are 94% on room air blood pressures 128/82 Constitutional: Well developed, well nourished, she is obviously uncomfortable laying with her left side down her right hip is internally rotated and shortened. HENT: Normocephalic, atraumatic, bilateral external ears normal, oropharynx moist, no oral exudates, nose normal. [] Eyes: PERRLA, EOMI, conjunctiva normal, no discharge. [] Neck: He does is some tenderness of the lateral right side of her neck reproducible on exam with nothing midline. She has no obvious deformities. No soft tissue swelling. Cardiovascular:Heart rate regular rhythm, no murmur [] Lungs & Thorax: Bilateral breath sounds clear to auscultation [] Abdomen: Bowel sounds normal, soft, no tenderness, no masses, no pulsatile masses. [] Skin: Warm, dry, no erythema, no rash. [] Back: No tenderness, no CVA tenderness. [] Extremities: She does have significant tenderness to palpation over the right hip is internally rotated. She has considerable pain on the posterior aspect and the lateral aspect of the right hip there is no obvious crepitus or soft tissue swelling. Neurologic: Alert and oriented X 3, normal motor function, normal sensory function, no focal deficits noted. [] Psychologic: Affect normal, judgement normal, mood normal. [] Current Patient Data Vital Signs Vital Signs Date Time Temp Pulse Resp B/P (MAP) Pulse Ox O2 Delivery O2 Flow Rate FiO2 01/21/17 07:36 16 99 Room Air 01/21/17 06:51 98.5 76 136/61 (86) 98.5 Lab Values Laboratory Tests Test 01/21/17 06:55 White Blood Count 5.6 x10^3/uL (4.0-11.0) Red Blood Count 4.01 x10^6/uL (3.50-5.40) Hemoglobin 12.3 g/dL (12.0-15.5) Hematocrit 37.5 % (36.0-47.0) Mean Corpuscular Volume 94 fL (79-100) Mean Corpuscular Hemoglobin 31 pg (25-35) Mean Corpuscular Hemoglobin Concent 33 g/dL (31-37) Red Cell Distribution Width 16.6 % (11.5-14.5) H Platelet Count 240 x10^3/uL (140-400) Neutrophils (%) (Auto) 69 % (31-73) Lymphocytes (%) (Auto) 23 % (24-48) L Monocytes (%) (Auto) 6 % (0-9) Eosinophils (%) (Auto) 1 % (0-3) Basophils (%) (Auto) 1 % (0-3) Neutrophils # (Auto) 3.8 x10^3uL (1.8-7.7) Lymphocytes # (Auto) 1.3 x10^3/uL (1.0-4.8) Monocytes # (Auto) 0.4 x10^3/uL (0.0-1.1) Eosinophils # (Auto) 0.1 x10^3/uL (0.0-0.7) Basophils # (Auto) 0.0 x10^3/uL (0.0-0.2) Sodium Level 143 mmol/L (136-145) Potassium Level 3.3 mmol/L (3.5-5.1) L Chloride Level 106 mmol/L (98-107) Carbon Dioxide Level 25 mmol/L (21-32) Anion Gap 12 (6-14) Blood Urea Nitrogen 9 mg/dL (7-20) Creatinine 0.8 mg/dL (0.6-1.0) Estimated GFR (Cockcroft-Gault) 68.0 Glucose Level 105 mg/dL (70-99) H Calcium Level 8.4 mg/dL (8.5-10.1) L Total Bilirubin 0.5 mg/dL (0.2-1.0) Direct Bilirubin 0.1 mg/dL (0.0-0.2) Aspartate Amino Transferase (AST) 24 U/L (15-37) Alanine Aminotransferase (ALT) 16 U/L (14-59) Alkaline Phosphatase 85 U/L (46-116) Total Protein 6.7 g/dL (6.4-8.2) Albumin 3.3 g/dL (3.4-5.0) L Laboratory Tests 01/21/17 06:55 Laboratory Tests 01/21/17 06:55 EKG EKG [] KG timed 7:37 AM 01/21/2017. Read by Dr. Turner shows an irregular irregular rhythm with a heart rate of 81 QRS width is a 4 QTC is 485 within normal limits there is some movement artifact noted but no ST segment T-wave changes concerning for acute coronary ischemia there is a questionable Q wave in the inferior leads lead 3. Radiology/Procedures Radiology/Procedures [] Course & Med Decision Making Course & Med Decision Making On arrival in order to facilitate a better exam patient was given pain medication before being disrobed. Pertinent Labs and Imaging studies reviewed. ( See chart for details) Patient was finally disrobed x-rays are finally completed as well as bloodwork supporting patient's admission likely suspect hip fracture. 3 completed 7:[address] Turner 01/21/2017 demonstrates an intertrochanteric right hip fracture with moderate displacement and angulation. [facility] note: Dr. Fernando internal medicine [facility] called at of the service at 7:30 AM Consult called back at 7:30 AM Discussed the case I presented and they agreed with admission. Time of acceptance 7:30 AM [] She fell secondary to mechanical fall patient will have appropriate supportive lab work to get her cleared for the OR. Patient will have a CAT scan of the head and neck completed by her to discharge from the emergency department. Patient's case was discussed with internal medicine business liaison manager as well as oral surgeon Impression: Intertrochanteric hip fracture secondary to mechanical fall. Disposition: Admission to the hospital as an inpatient for surgical correction of intratrochanteric hip fracture [facility] note: Dr. Lewis [facility] called at of the service 7:37 am Consult called back at 7:38 Discussed the case I presented and they agreed with admission. They will see in consultation. She is in a considerable amount of pain at 745 she's been given 2 doses of fentanyl was given a small dose of Dilaudid we are trying to support the hip with padding to help reduce discomfort. Dragon Disclaimer Dragon Disclaimer This electronic medical record was generated, in whole or in part, using a voice recognition dictation system. Departure Departure Impression: Primary Impression: Hip fracture, right Disposition: 09 ADMITTED INPATIENT Admitting Physician: David Fernando Condition: GUARDED Referrals: MARTHA AVENDANO MD (PCP) PORTILLO TURNER MD Jan 21, 2017 07:02
[2017-01-21 07:17] LABS: CALCIUM 8.4 mg/dL (8.5-10.1); CREATININE 0.8 mg/dL (0.6-1.0); POTASSIUM 3.3 mmol/L (3.5-5.1)
[2017-01-21 07:23] LABS: ALBUMIN 3.3 g/dL (3.4-5.0); DIRECT BILIRUBIN 0.1 mg/dL (0.0-0.2); TOTAL BILIRUBIN 0.5 mg/dL (0.2-1.0); TOTAL PROTEIN 6.7 g/dL (6.4-8.2)
[2017-01-21] MEDS: fentaNYL PF VIAL 100 MCG/2 ML VIAL IV PRN ×10 (07:36→15:45)
[2017-01-21 07:37] LABS: BASO % 1 % (0-3); EOS % 1 % (0-3); HEMATOCRIT 37.5 % (36.0-47.0); HEMOGLOBIN 12.3 g/dL (12.0-15.5); LYMPH # 1.3 x10^3/uL (1.0-4.8); LYMPH % 23 % (24-48); MEAN CORPUSCULAR HEMOGLOBIN 31 pg (25-35); MEAN CORPUSCULAR HGB CONC 33 g/dL (31-37); MEAN CORPUSCULAR VOLUME 94 fL (79-100); MONO % 6 % (0-9); NEUT % 69 % (31-73); PLATELET COUNT 240 x10^3/uL (140-400); RED BLOOD COUNT 4.01 x10^6/uL (3.50-5.40); RED CELL DISTRIBUTION WIDTH 16.6 % (11.5-14.5); WHITE BLOOD COUNT 5.6 x10^3/uL (4.0-11.0)
--- NOTE | 2017-01-21 07:42 | RAD ---
Indication fall. Closed head injury. Neck pain. The head and cervical spine were evaluated. Images of the cervical spine were reformatted in the coronal and sagittal planes. The head is compared to an examination 11/12/2016. CT head: Findings. The calvarium appears unremarkable. The visualized paranasal sinuses appear unremarkable. There is no subdural or epidural hematoma. There is no mass or midline shift. Underlying chronic changes are noted. No hemorrhage is seen. No acute intracranial finding is apparent. CT cervical spine: Findings. The lung apices are clear. No significant soft tissue finding in the neck is seen. Review of axial images is unremarkable with regards to any acute finding. Spondylitic changes are noted. Review of reformatted images in the coronal and sagittal planes similarly demonstrates some degenerative change but no fracture is seen. IMPRESSION: Spondylitic changes in the cervical spine. No acute finding seen. No acute finding in the head PQRS Compliance Statement: One or more of the following individualized dose reduction techniques were utilized for this examination: 1. Automated exposure control 2. Adjustment of the mA and/or kV according to patient size 3. Use of iterative reconstruction technique
[2017-01-21] MEDS ORDERED: HYDROmorphone 2 MG/ML VIAL IV ONE (08:00)
[2017-01-21] MEDS: ONDANSETRON PF 4 MG/2 ML VIAL. IV PRN ×3 (08:14→20:36)
[2017-01-21 08:17] LABS: INR 1.1 (0.8-1.1); PROTHROMBIN TIME PATIENT 13.4 SEC (11.7-14.0)
--- NOTE | 2017-01-21 08:20 | RAD ---
Indication fall, pain. An AP view of the pelvis was obtained as well as targeted AP and lateral views of the right hip. There is an acute, traumatic, intertrochanteric right hip fracture. There is slight impaction and angulation associated with the fracture. IMPRESSION: Acute intertrochanteric right hip fracture
--- NOTE | 2017-01-21 08:25 | RAD ---
Indication fall, pain. A single view of the chest was obtained and is compared to an examination 10/02/2016. There are probable background changes of emphysema or fibrosis similar to the previous exam. Heart size is unchanged. There is no congestive heart failure. There is no focal infiltrate. A significant change compared to the previous exam is not seen. IMPRESSION: No acute or focal process. No significant change
[2017-01-21] MEDS ORDERED: ONDANSETRON PF 4 MG/2 ML VIAL. IV PRN ×2 (09:30→12:15)
[2017-01-21] MEDS ORDERED: hydrALAZINE 20 MG/ML VIAL. IVP PRN (09:30)
[2017-01-21] MEDS ORDERED: ACETAMINOPHEN 325 MG TABLET. PO PRN (09:30)
[2017-01-21] MEDS ORDERED: ALBUTEROL SULFATE 2.5 MG/3 ML NEBU. NEB PRN (09:30)
[2017-01-21] MEDS: IV NORMAL SALINE 1000ML BAG 1,000 ML IV SCH ×2 (10:05→20:28)
--- NOTE | 2017-01-21 10:20 | EKG ---
[facility] [address] [place] [address] Test Date: 2017-01-21 Test Time: 07:37:22 Pat Name: BILL CRUZ Department: Room: Gender: F Benefits Specialist Recruiter: : [id number] Requested By: PORTILLO TURNER Order Number: [id number] Reading MD: Measurements Intervals [place] Rate: 81 P: TN: QRS: -30 QRSD: 84 T: 14 QT: 412 QTc: 485 Interpretive Statements IRREGULAR RHYTHM, NO P-WAVE FOUND ABNORMAL LEFT AXIS DEVIATION T ABNORMALITY IN INFERIOR LEADS PROLONGED QT RI6.01 Unconfirmed report No previous ECG available for comparison
[2017-01-21] MEDS ORDERED: IV RINGERS,LACTATED 1000ML 1,000 ML IV SCH (12:08)
[2017-01-21] MEDS ORDERED: PROCHLORPERAZINE 10 MG/2 ML VIAL. IV PRN ×2 (12:15→14:45)
[2017-01-21] MEDS ORDERED: LIDOCAINE 1% 1 ML SYRINGE. ID PRN (12:15)
[2017-01-21] MEDS ORDERED: HYDROmorphone 2 MG/ML VIAL IV PRN (12:15)
[2017-01-21] MEDS ORDERED: fentaNYL PF VIAL 100 MCG/2 ML VIAL IV PRN ×3 (12:15→14:45)
[2017-01-21] MEDS ORDERED: MORPHINE SULFATE 2 MG/ML DISP.SYRIN. IV PRN ×2 (12:15→14:45)
[2017-01-21] MEDS ORDERED: EPINEPHRINE INT ART ONE (12:30)
[2017-01-21] MEDS ORDERED: NORMAL SALINE INT ART ONE (12:30)
[2017-01-21] MEDS ORDERED: ROPIVACAINE 0.75% INT ART ONE (12:30)
[2017-01-21] MEDS ORDERED: fentaNYL PF VIAL 100 MCG/2 ML VIAL ONE (12:55)
[2017-01-21] MEDS ORDERED: LIDOCAINE 2% PF Vial for OR 5 ML VIAL. ONE (12:56)
[2017-01-21] MEDS ORDERED: DEXAMETHASONE SOD PHOS 20 MG/5 ML VIAL. ONE (12:56)
[2017-01-21] MEDS ORDERED: PHENYLEPHRINE 10 MG/ML VIAL. ONE (12:56)
[2017-01-21] MEDS ORDERED: SEVOFLURANE 31 TO 60 MINUTES. IH ONE (12:56)
[2017-01-21] MEDS ORDERED: ONDANSETRON PF 4 MG/2 ML VIAL. ONE (12:56)
[2017-01-21] MEDS ORDERED: PROPOFOL 20 ML IV ONE (12:56)
--- NOTE | 2017-01-21 13:00 | PDOC1 ---
History and Physical Identification/Chief Complaint Chief Complaint Chief complaint: Fall Data examination: 01/21/2017 History of present illness: A 86-year-old female patient with prior history of A. fib hypertension was brought to the hospital by EMS after sustaining a fall. Today, patient was trying to watering her plants she tripped over and fell in the garden, denies denies any reported history of trauma to had no loss of consciousness patient was on the floor nearly for a 10-15 minutes. Has seen patient after her surgery in the PACU, she is alert but complains of some nausea dehydrated denies any complaints. Her pain has been controlled with current medications, 0/ 10 no radiation to Problems: Past Medical History Cardiovascular: AFIB, HTN, Syncope, Hyperlipidemia Pulmonary: No pertinent hx CENTRAL NERVOUS SYSTEM: Other GI: GERD Heme/Onc: No pertinent hx, Other Hepatobiliary: No pertinent hx Psych: Anxiety Rheumatologic: No pertinent hx Infectious disease: No pertinent hx Endocrine: Hypothyroidism Past Surgical History Past Surgical History: Appendectomy, Cholecystectomy, , Tonsillectomy , Hysterectomy Family History Family History: Heart Disease Social History ALCOHOL: none Drugs: None Current Problem List Problem List Problems Medical Problems: (1) Hip fracture, right Status: Acute Current Medications Current Medications Current Medications Medications (Trade) Dose Ordered Sig/Carmen Start Time Stop Time Status Last Admin Dose Admin Acetaminophen (Tylenol) 325 mg PRN Q6HRS PRN 01/21/17 09:30 Albuterol Sulfate (Ventolin Neb Soln) 2.5 mg PRN Q4HRS PRN 01/21/17 09:30 Dexamethasone Sodium Phosphate (Decadron) 20 mg STK-MED ONCE 01/21/17 12:56 01/21/17 12:57 DC Fentanyl Citrate (Fentanyl 2ml Vial) 100 mcg STK-MED ONCE 01/21/17 12:55 01/21/17 12:56 DC Hydralazine HCl (Apresoline) 10 mg PRN Q4HRS PRN 01/21/17 09:30 Hydromorphone HCl (Dilaudid) 0.5 mg PRN Q10MIN PRN 01/21/17 12:15 01/22/17 12:14 Lidocaine HCl (Lidocaine Pf 2% Vial) 5 ml STK-MED ONCE 01/21/17 12:56 01/21/17 12:57 DC Morphine Sulfate 1 mg PRN Q10MIN PRN 01/21/17 12:15 01/22/17 12:14 UNV Ondansetron HCl (Zofran) 4 mg STK-MED ONCE 01/21/17 12:56 01/21/17 12:57 DC Phenylephrine HCl (Barrera-Synephrine Inj) 10 mg STK-MED ONCE 01/21/17 12:56 01/21/17 12:57 DC Prochlorperazine Edisylate (Compazine) 5 mg PACU PRN PRN 01/21/17 12:15 01/22/17 12:14 Propofol 20 ml @ As Directed STK-MED ONCE 01/21/17 12:56 01/21/17 12:57 DC Ringer's Solution 1,000 ml @ 0 mls/hr Q0M 01/21/17 12:08 01/22/17 00:07 01/21/17 12:49 30 MLS/HR Ropivacaine 53.3 ml/Epinephrine HCl 0.6 mg/Sodium Chloride 100 ml @ 100 mls/hr 1X PERIOP ONCE 01/21/17 12:30 01/21/17 13:29 Sevoflurane (Ultane) 30 ml STK-MED ONCE 01/21/17 12:56 01/21/17 12:57 DC Sodium Chloride 1,000 ml @ 80 mls/hr [id number] 01/21/17 07:48 01/22/17 07:47 01/21/17 10:05 80 MLS/HR Sodium Chloride (Normal Saline Flush) 10 ml QSHIFT PRN 01/21/17 07:00 01/21/17 07:36 10 ML Allergies Allergies Allergies Coded Allergies Type Severity Reaction Last Updated Verified codeine Allergy Severe Shortness of Air 08/25/14 Yes ROS Review of System CONSTITUTIONAL: fall EYES: No recent changes SKIN: No rash or itching CARDIOVASCULAR: No chest pain, syncope, palpitations, or edema RESPIRATORY: No SOB or cough GASTROINTESTINAL: nausea, no vomiting or abdominal pain NEUROLOGICAL: No headaches or weakness ENDOCRINE: No cold or heat intolerance GENITOURINARY: No urgency or frequency of urination MUSCULOSKELETAL: No back pain or joint pain LYMPHATICS: No enlarged lymph nodes PSYCHIATRIC: No anxiety or depression Physical Exam Physical Exam GEN.: No apparent distress. Alert and oriented times 4 HEENT: Head is normocephalic, atraumatic NECK: Supple. No JVD LUNGS: Clear to auscultation. Normal air flow HEART: tachycardia. RR ABDOMEN: Soft, nontender. Positive bowel sounds. EXTREMITIES: Without any cyanosis. No leg edema NEUROLOGIC: Normal speech, normal tone PSYCHIATRIC: Normal affect, normal mood. SKIN: No visible cyanosis Vitals Vitals Vital Signs Date Time Temp Pulse Resp B/P (MAP) Pulse Ox O2 Delivery O2 Flow Rate FiO2 01/21/17 11:11 Room Air 01/21/17 11:00 97.7 101 20 128/55 (79) 96 97.7 Labs Labs Laboratory Tests Test 01/21/17 06:55 White Blood Count 5.6 x10^3/uL (4.0-11.0) Red Blood Count 4.01 x10^6/uL (3.50-5.40) Hemoglobin 12.3 g/dL (12.0-15.5) Hematocrit 37.5 % (36.0-47.0) Mean Corpuscular Volume 94 fL (79-100) Mean Corpuscular Hemoglobin 31 pg (25-35) Mean Corpuscular Hemoglobin Concent 33 g/dL (31-37) Red Cell Distribution Width 16.6 % (11.5-14.5) Platelet Count 240 x10^3/uL (140-400) Neutrophils (%) (Auto) 69 % (31-73) Lymphocytes (%) (Auto) 23 % (24-48) Monocytes (%) (Auto) 6 % (0-9) Eosinophils (%) (Auto) 1 % (0-3) Basophils (%) (Auto) 1 % (0-3) Neutrophils # (Auto) 3.8 x10^3uL (1.8-7.7) Lymphocytes # (Auto) 1.3 x10^3/uL (1.0-4.8) Monocytes # (Auto) 0.4 x10^3/uL (0.0-1.1) Eosinophils # (Auto) 0.1 x10^3/uL (0.0-0.7) Basophils # (Auto) 0.0 x10^3/uL (0.0-0.2) Prothrombin Time 13.4 SEC (11.7-14.0) Prothromb Time International Ratio 1.1 (0.8-1.1) Activated Partial Thromboplast Time 31 SEC (24-38) Sodium Level 143 mmol/L (136-145) Potassium Level 3.3 mmol/L (3.5-5.1) Chloride Level 106 mmol/L (98-107) Carbon Dioxide Level 25 mmol/L (21-32) Anion Gap 12 (6-14) Blood Urea Nitrogen 9 mg/dL (7-20) Creatinine 0.8 mg/dL (0.6-1.0) Estimated GFR (Cockcroft-Gault) 68.0 Glucose Level 105 mg/dL (70-99) Calcium Level 8.4 mg/dL (8.5-10.1) Total Bilirubin 0.5 mg/dL (0.2-1.0) Direct Bilirubin 0.1 mg/dL (0.0-0.2) Aspartate Amino Transf (AST/SGOT) 24 U/L (15-37) Alanine Aminotransferase (ALT/SGPT) 16 U/L (14-59) Alkaline Phosphatase 85 U/L (46-116) Troponin I Quantitative < 0.017 ng/mL (0.000-0.055) Total Protein 6.7 g/dL (6.4-8.2) Albumin 3.3 g/dL (3.4-5.0) Laboratory Tests Test 01/21/17 06:55 White Blood Count 5.6 x10^3/uL (4.0-11.0) Red Blood Count 4.01 x10^6/uL (3.50-5.40) Hemoglobin 12.3 g/dL (12.0-15.5) Hematocrit 37.5 % (36.0-47.0) Mean Corpuscular Volume 94 fL (79-100) Mean Corpuscular Hemoglobin 31 pg (25-35) Mean Corpuscular Hemoglobin Concent 33 g/dL (31-37) Red Cell Distribution Width 16.6 % (11.5-14.5) Platelet Count 240 x10^3/uL (140-400) Neutrophils (%) (Auto) 69 % (31-73) Lymphocytes (%) (Auto) 23 % (24-48) Monocytes (%) (Auto) 6 % (0-9) Eosinophils (%) (Auto) 1 % (0-3) Basophils (%) (Auto) 1 % (0-3) Neutrophils # (Auto) 3.8 x10^3uL (1.8-7.7) Lymphocytes # (Auto) 1.3 x10^3/uL (1.0-4.8) Monocytes # (Auto) 0.4 x10^3/uL (0.0-1.1) Eosinophils # (Auto) 0.1 x10^3/uL (0.0-0.7) Basophils # (Auto) 0.0 x10^3/uL (0.0-0.2) Prothrombin Time 13.4 SEC (11.7-14.0) Prothromb Time International Ratio 1.1 (0.8-1.1) Activated Partial Thromboplast Time 31 SEC (24-38) Sodium Level 143 mmol/L (136-145) Potassium Level 3.3 mmol/L (3.5-5.1) Chloride Level 106 mmol/L (98-107) Carbon Dioxide Level 25 mmol/L (21-32) Anion Gap 12 (6-14) Blood Urea Nitrogen 9 mg/dL (7-20) Creatinine 0.8 mg/dL (0.6-1.0) Estimated GFR (Cockcroft-Gault) 68.0 Glucose Level 105 mg/dL (70-99) Calcium Level 8.4 mg/dL (8.5-10.1) Total Bilirubin 0.5 mg/dL (0.2-1.0) Direct Bilirubin 0.1 mg/dL (0.0-0.2) Aspartate Amino Transf (AST/SGOT) 24 U/L (15-37) Alanine Aminotransferase (ALT/SGPT) 16 U/L (14-59) Alkaline Phosphatase 85 U/L (46-116) Troponin I Quantitative < 0.017 ng/mL (0.000-0.055) Total Protein 6.7 g/dL (6.4-8.2) Albumin 3.3 g/dL (3.4-5.0) VTE Prophylaxis Ordered VTE Prophylaxis Devices: Yes VTE Pharmacological Prophylaxi: Yes Assessment/Plan Assessment/Plan Assessment and plan Acute closed right intertrochanteric hip fracture status post intramedullary implant. Chronic A. fib rate controlled currently tachycardia Hypertension Hypothyroidism GERD Nausea and dehydration Intractable pain due to above Plan Continue current pain regimen, On Morphine. Continue IV hydration with normal saline at 75 MLS per hour Home medications reviewed DVT prophylaxis - OAC IV Zofran /Compazine for nausea CLAUDIO GONZALEZ MD Jan 21, 2017 12:59
[2017-01-21] MEDS ORDERED: FAMOTIDINE 20 MG/2 ML VIAL ONE (13:01)
--- NOTE | 2017-01-21 14:21 | PDOC4 ---
Operative Note Operative Note Date of Procedure: January 21, 2017 Pre-Op Diagnosis: closed right intertrochanteric hip fracture Post-Op Diagnosis: closed right intertrochanteric hip fracture Procedure/Anesthesia: Treatment of intertrochanteric right femur fracture with intramedullary implant (CPT 88957) Surgeon: Sarahi Lewis MD Brim Stretcher: Erin Schwartz PA-C Anesthesia Type: General EBL: 100 mL Specimens Obtained: none Complications: None Implants: Kingsley Gamma Nail Gamma 3, 33l282 mm, 10.5 x 100mm lag screw, and 5 x 35 mm locking screw INDICATION FOR PROCEDURE: The patient is an 86 year old, who fell, sustaining a right hip fracture. The patient and I and the patient's family discussed the risks, benefits and alternatives of treatment. The alternative for treatment is bedrest until the fracture feels well, which is generally not well tolerated due to the risks of bedsores, blood clots, pneumonia and deconditioning. I recommended intramedullary nailing, and I talked to them about the potential risks of this including risks of bleeding, infection, blood clots, malunion, nonunion, need for further surgery, or other potential surgical or anesthetic complications. All of their questions were answered about surgery and they desired to proceed. A written consent was obtained. PROCEDURE IN DETAIL: The patient was identified in the preoperative holding area. The correct right hip was marked by me. The patient was taken to the operating room, where a general anesthetic was used. Preoperative antibiotics were given intravenously. The HANA table was used and the well leg was placed in a padded lithotomy leg miller while the foot of the fractured right leg was placed in a traction foot boot. A time-out procedure was performed. The image intensifier was used, and a preliminary reduction performed and the fracture site confirmed. The image intensifier large C-arm was used The hip area was prepped sterilely with ChloraPrep solution and a sterile barrier Ioban hip drape was used. An incision was made over the superior aspect of the greater trochanter. A guide pin was placed at the tip of the greater trochanter, and an entry reamer was used. Reaming was performed over the guide wire, for preparation of the canal for insertion of the nail. The intramedullary nail was attached to a guide and then was placed down the canal, and positioned using the image intensifier. A second incision was now used over the lower part of the greater trochanter, to place a guide pin through the guide and the sleeves, close to the center-center position of the femoral head, and the guide wire was measured. The tunnel for the lag screw was reamed. The lag screw was placed through the nail using the guide. A proximal locking screw was now placed to lock the lag screw. Finally, a distal cross lock screw was placed using the triple sleeve device through the guide. Screw position was confirmed with the image intensifier. Satisfactory reduction and fixation was confirmed using image intensifier views in multiple planes. A periarticular injection of ropivacaine, epinephrine and morphine was used. Copious irrigation was used and the incision was now closed in layers by Ms. Schwartz, with #2 Vicryl, 2-0 Vicryl and santy. A bulky sterile dressing was applied. The patient was gently transferred from the fracture table back to a hospital bed. There were no apparent complications. SARAHI LEWIS MD Jan 21, 2017 14:21
[2017-01-21] MEDS ORDERED: DEXTROSE 50% 25 GM / 50ML DISP.SYRIN. IV PRN (14:45)
[2017-01-21] MEDS ORDERED: oxyCODONE/APAP 7.5/325 1 TAB TABLET PO PRN (14:45)
[2017-01-21] MEDS ORDERED: ZOLPIDEM 5 MG TABLET. PO PRN (14:45)
[2017-01-21] MEDS ORDERED: diphenhydrAMINE 50 MG/ML VIAL IV PRN (14:45)
[2017-01-21] MEDS ORDERED: MORPHINE SULFATE 4 MG/ML DISP.SYRIN. IV PRN ×2 (14:45)
[2017-01-21] MEDS ORDERED: MORPHINE SULFATE 10 MG/ML VIAL. IV PRN (14:45)
[2017-01-21] MEDS ORDERED: METOCLOPRAMIDE HCL 10 MG/2 ML VIAL. IV PRN (14:45)
[2017-01-21] MEDS ORDERED: traMADol 50 MG TABLET PO PRN (14:45)
[2017-01-21] MEDS ORDERED: PROCHLORPERAZINE 5 MG TABLET. PO PRN (14:45)
[2017-01-21] MEDS ORDERED: HYDROcodone/APAP 10/325 1 TAB TABLET PO PRN (14:45)
[2017-01-21] MEDS ORDERED: IV NORMAL SALINE 1000ML BAG 1,000 ML IV ONE (15:45)
[2017-01-21] MEDS: IV DEXTROSE 5 %-0.45 % NACL 1,000 ML IV SCH (16:05)
[2017-01-21] MEDS: traMADol 50 MG TABLET PO PRN (17:37)
[2017-01-21] MEDS: FERROUS SULFATE 325 MG TABLET. PO SCH (17:38)
[2017-01-21] MEDS ORDERED: PANTOPRAZOLE 40 MG TABLET.DR. PO ONE (18:00)
[2017-01-21] MEDS: ZOLPIDEM 5 MG TABLET. PO SCH (20:28)
[2017-01-21] MEDS: APIXABAN 2.5 MG TABLET. PO SCH (20:36)
[2017-01-21] MEDS: CALCIUM CARBONATE 500 MG TAB.CHEW PO PRN (20:36)
--- NOTE | 2017-01-22 01:46 | ACF ---
Admission Forms Criteria MUSCULOSKELETAL DISEASE GRG Clinical Indications for Admission to Inpatient Care (Place 'X' for any and all applicable criteria): Hospital admission is needed for appropriate care of the patient because of 1 or more of the following: [X]I. Fracture, dislocation, or other musculoskeletal injury requiring inpatient care(medical) as indicated by 1 or more of the following(4)(5)(6)(7) [ ]a) Vertebral fracture requiring observation for instability or neurologic compromise (8) [ ]b) Compartment syndrome (proven or cannot be ruled out during observation level of care) (9) [ ]c) Limb-threatening injury [ ]d) Major injury requiring inpatient stabilization such as traction initiation or external fixation before internal fixation or closure of complex or open fracture [X]e) Major injury requiring inpatient treatment after emergency or observation level care (as appropriate) [ ]f) Severe pain requiring acute inpatient management [ ]g) Injury with suspicion of abuse or neglect (eg., child, dependent elderly) [ ]II. Newly diagnosed or suspected bone, joint, or orthopedic device infection (e.g., osteomyelitis, septic arthritis) needing 1 or more of the following(1)(2)(3) [ ]a) IV antibiotics that cannot be initiated in other than inpatient setting (e.g., patient too unstable or home infusion not available) [ ]b) Device removal or replacement [ ]c) Bone or soft tissue debridement [ ]d) Joint drainage (drain placement or repetitive aspirations) [ ]III. Severe rheumatologic disease (e.g., systemic lupus erythematosus, rheumatoid arthritis) with complications or comorbidities (Also use Optimal Recovery Care Criteria or General Recovery Criteria as appropriate on the basis of predominant condition), including 1 or more of the following( 10)(11)(12)(13) [ ]a) Severe infection (e.g., COSMETIC MANAGER infection, sepsis) (14) [ ]b) Respiratory complications, including 1 or more of the following : [ ]i) Pleural effusion with respiratory compromise [ ]ii) Pulmonary hypertension with congestive failure [ ]iii) Respiratory failure [ ]iv) Pulmonary hemorrhage (15) [ ]c) Hematologic disease, including 1 or more of the following: [ ]i) Coagulopathy with bleeding [ ]ii) Thrombosis with hypercoagulable state [ ]iii) Thrombotic thrombocytopenic purpura [ ]d) Cerebritis with seizures, psychosis, or other severe abnormalities [ ]e) Vertebral destruction with monitoring needed for cervical myelopathy& possible respiratory compromise [ ]f) Exacerbation that requires inpatient treatment (e.g., intravenous immunosuppression) (16) [ ]g) Acute renal failure [ ]h) Cerebritis with seizures, psychosis, Altered mental status, or other neurologic abnormalities [ ]i) Pericardial effusion with tamponade [ ]j) Vertebral destruction, with monitoring needed for cervical myelopathy and possible respiratory compromise [ ]IV. Severe vasculitis with complications or comorbidities (Also use Optimal Recovery Care Criteria General Recovery Criteria as appropriate on the basis of predominant condition), including 1 or more of the following(11)(12)(17)(18)(19)(20) [ ]a) Exacerbation that requires inpatient treatment (e.g., intravenous immunosuppression) (19)(21) [ ]b) Pulmonary hemorrhage (15) [ ]c) COSMETIC MANAGER vasculitis with seizures, psychosis, Altered mental status that is severe or persistent, or other severe abnormalities (22) [ ]d) Cerebral infarction [ ]e) Gastrointestinal ischemia [ ]f) Gangrene or threatened amputation [ ]g) Renal failure (16) [ ]h) Other significant complications of vasculitis ( eg., tissue or organ ischemia, organ dysfunction ) [ ]V. Severe myopathy as indicated by 1 or more of the following (28)(29) [ ]a) New onset of airway compromise or inability to swallow [ ]b) Respiratory deterioration with observation needed for impending respiratory failure [ ]c) Exacerbation that requires inpatient treatment (e.g., intravenous immunosuppression) [ ]. Severe crystal gout (arthropathy) indicated by 1 or more of the following (23)(24) [ ]a) Severe pain requiring acute inpatient management [ ]b) Exacerbation that requires inpatient treatment (e.g., intravenous treatment) [ ]VII.Rhabdomyolysis and 1 or more of the following (25)(26)(27) [ ]a) Acute renal failure [ ]b) Need for intravenous hydration after emergency or observation level care (as appropriate) [ ]c) Inability to maintain oral hydration [ ]d) Change in mental status [ ]e) Electrolyte abnormality that remains after emergency or observation level care (as appropriate) [ ]VIII Post amputation complication, as indicated by ANY ONE of the following [ ]a) Infection [ ]b) Dehiscence [ ]c) Myodesis failure [ ]IX. Severe pain requiring acute inpatient management due to musculoskeletal condition [ ]X. Musculoskeletal Disease and ALL of the following: [ ]a) Symptom or finding for which emergency and observation care have failed or are not considered appropriate (Use General Criteria: Observation Care as appropriate) [ ]b) Presence of ANY ONE of the following [ ]i) A General Admission Criteria [ ]ii) A Pediatric General Admission Criteria The original [facility] [employer] content created by [facility] has been revised. The portions of the content which have been revised are identified through the use of italic text or in bold, and [facility] has neither reviewed nor approved the modified material. All other unmodified content is copyright [facility]. Please see references footnoted in the original [facility] edition 2016 Admission Criteria Met?: Yes GASPER CHIN Jan 22, 2017 01:46
[2017-01-22] MEDS: IV DEXTROSE 5 %-0.45 % NACL 1,000 ML IV SCH ×3 (02:18→20:31)
[2017-01-22 03:00] VITALS: BP 147/58
[2017-01-22] MEDS: LEVOTHYROXINE 88 MCG TABLET PO SCH (05:51)
[2017-01-22 05:53] LABS: BASO % 0 % (0-3); EOS % 0 % (0-3); HEMATOCRIT 31.4 % (36.0-47.0); HEMOGLOBIN 10.4 g/dL (12.0-15.5); LYMPH # 0.5 x10^3/uL (1.0-4.8); LYMPH % 4 % (24-48); MEAN CORPUSCULAR HEMOGLOBIN 31 pg (25-35); MEAN CORPUSCULAR HGB CONC 33 g/dL (31-37); MEAN CORPUSCULAR VOLUME 94 fL (79-100); MONO % 4 % (0-9); NEUT % 92 % (31-73); PLATELET COUNT 195 x10^3/uL (140-400); RED BLOOD COUNT 3.36 x10^6/uL (3.50-5.40); RED CELL DISTRIBUTION WIDTH 16.3 % (11.5-14.5); WHITE BLOOD COUNT 11.6 x10^3/uL (4.0-11.0)
[2017-01-22] MEDS: ACETAMINOPHEN 325 MG TABLET. PO PRN ×2 (05:53→22:19)
[2017-01-22] MEDS ORDERED: MAGNESIUM HYDROXIDE 2,400 MG/30 ML ORAL.SUSP. PO PRN (06:00)
[2017-01-22 06:10] LABS: CALCIUM 7.8 mg/dL (8.5-10.1); CREATININE 0.5 mg/dL (0.6-1.0); POTASSIUM 3.4 mmol/L (3.5-5.1)
[2017-01-22 07:00] VITALS: BP 127/56
[2017-01-22] MEDS: PANTOPRAZOLE 40 MG TABLET.DR. PO SCH (09:46)
[2017-01-22] MEDS: traMADol 50 MG TABLET PO PRN (09:47)
[2017-01-22] MEDS: APIXABAN 2.5 MG TABLET. PO SCH ×2 (09:47→22:19)
[2017-01-22] MEDS: FERROUS SULFATE 325 MG TABLET. PO SCH ×2 (09:47→17:39)
[2017-01-22] MEDS: MULTIVITAMIN with MINERAL TABLET. PO SCH (09:47)
[2017-01-22] MEDS: SENNOSIDES/DOCUSATE 8.6/50MG TABLET. PO SCH (09:47)
[2017-01-22] MEDS: POTASSIUM CHLORIDE 10 MEQ TABLET.ER. PO SCH ×3 (09:48→17:40)
[2017-01-22 11:00] VITALS: BP 112/72
--- NOTE | 2017-01-22 11:08 | PDOC ---
PROGRESS NOTES Chief Complaint Chief Complaint Acute closed right intertrochanteric hip fracture status post intramedullary implant. Chronic A. fib rate controlled currently tachycardia Hypertension Hypothyroidism GERD Nausea and dehydration Intractable pain due to above History of Present Illness History of Present Illness POD #1 ORIF pain almost zero at rest, very painful with movement reported PT and OT today Continue IV hydration with normal saline at 75 MLS per hour pain control IV Zofran /Compazine for nausea Vitals Vitals Vital Signs Date Time Temp Pulse Resp B/P (MAP) Pulse Ox O2 Delivery O2 Flow Rate FiO2 01/22/17 09:47 Nasal Cannula 01/22/17 07:00 97.7 76 20 127/56 (79) 99 97.7 01/22/17 03:00 3.0 Physical Exam General: Alert, Cooperative Heart: Regular rate, Normal S1 Lungs: Clear Abdomen: Soft Extremities: No clubbing, No cyanosis Skin: No rashes Labs LABS Laboratory Tests Test 01/22/17 04:56 White Blood Count 11.6 x10^3/uL (4.0-11.0) Red Blood Count 3.36 x10^6/uL (3.50-5.40) Hemoglobin 10.4 g/dL (12.0-15.5) Hematocrit 31.4 % (36.0-47.0) Mean Corpuscular Volume 94 fL (79-100) Mean Corpuscular Hemoglobin 31 pg (25-35) Mean Corpuscular Hemoglobin Concent 33 g/dL (31-37) Red Cell Distribution Width 16.3 % (11.5-14.5) Platelet Count 195 x10^3/uL (140-400) Neutrophils (%) (Auto) 92 % (31-73) Lymphocytes (%) (Auto) 4 % (24-48) Monocytes (%) (Auto) 4 % (0-9) Eosinophils (%) (Auto) 0 % (0-3) Basophils (%) (Auto) 0 % (0-3) Neutrophils # (Auto) 10.6 x10^3uL (1.8-7.7) Lymphocytes # (Auto) 0.5 x10^3/uL (1.0-4.8) Monocytes # (Auto) 0.4 x10^3/uL (0.0-1.1) Eosinophils # (Auto) 0.0 x10^3/uL (0.0-0.7) Basophils # (Auto) 0.0 x10^3/uL (0.0-0.2) Sodium Level 138 mmol/L (136-145) Potassium Level 3.4 mmol/L (3.5-5.1) Chloride Level 103 mmol/L (98-107) Carbon Dioxide Level 25 mmol/L (21-32) Anion Gap 10 (6-14) Blood Urea Nitrogen 5 mg/dL (7-20) Creatinine 0.5 mg/dL (0.6-1.0) Estimated GFR (Cockcroft-Gault) 117.0 Glucose Level 144 mg/dL (70-99) Calcium Level 7.8 mg/dL (8.5-10.1) Review of Systems Review of Systems no n.v.d no current pain Assessment and Plan Assessmemt and Plan Problems Medical Problems: (1) Hip fracture, right Status: Acute Problems: Comment Review of Relevant I have reviewed the following items nikki (where applicable) has been applied. Labs Laboratory Tests Test 01/21/17 06:55 01/21/17 11:00 01/22/17 04:56 White Blood Count 5.6 x10^3/uL (4.0-11.0) 11.6 x10^3/uL (4.0-11.0) Red Blood Count 4.01 x10^6/uL (3.50-5.40) 3.36 x10^6/uL (3.50-5.40) Hemoglobin 12.3 g/dL (12.0-15.5) 10.4 g/dL (12.0-15.5) Hematocrit 37.5 % (36.0-47.0) 31.4 % (36.0-47.0) Mean Corpuscular Volume 94 fL (79-100) 94 fL (79-100) Mean Corpuscular Hemoglobin 31 pg (25-35) 31 pg (25-35) Mean Corpuscular Hemoglobin Concent 33 g/dL (31-37) 33 g/dL (31-37) Red Cell Distribution Width 16.6 % (11.5-14.5) 16.3 % (11.5-14.5) Platelet Count 240 x10^3/uL (140-400) 195 x10^3/uL (140-400) Neutrophils (%) (Auto) 69 % (31-73) 92 % (31-73) Lymphocytes (%) (Auto) 23 % (24-48) 4 % (24-48) Monocytes (%) (Auto) 6 % (0-9) 4 % (0-9) Eosinophils (%) (Auto) 1 % (0-3) 0 % (0-3) Basophils (%) (Auto) 1 % (0-3) 0 % (0-3) Neutrophils # (Auto) 3.8 x10^3uL (1.8-7.7) 10.6 x10^3uL (1.8-7.7) Lymphocytes # (Auto) 1.3 x10^3/uL (1.0-4.8) 0.5 x10^3/uL (1.0-4.8) Monocytes # (Auto) 0.4 x10^3/uL (0.0-1.1) 0.4 x10^3/uL (0.0-1.1) Eosinophils # (Auto) 0.1 x10^3/uL (0.0-0.7) 0.0 x10^3/uL (0.0-0.7) Basophils # (Auto) 0.0 x10^3/uL (0.0-0.2) 0.0 x10^3/uL (0.0-0.2) Prothrombin Time 13.4 SEC (11.7-14.0) Prothromb Time International Ratio 1.1 (0.8-1.1) Activated Partial Thromboplast Time 31 SEC (24-38) Sodium Level 143 mmol/L (136-145) 138 mmol/L (136-145) Potassium Level 3.3 mmol/L (3.5-5.1) 3.4 mmol/L (3.5-5.1) Chloride Level 106 mmol/L (98-107) 103 mmol/L (98-107) Carbon Dioxide Level 25 mmol/L (21-32) 25 mmol/L (21-32) Anion Gap 12 (6-14) 10 (6-14) Blood Urea Nitrogen 9 mg/dL (7-20) 5 mg/dL (7-20) Creatinine 0.8 mg/dL (0.6-1.0) 0.5 mg/dL (0.6-1.0) Estimated GFR (Cockcroft-Gault) 68.0 117.0 Glucose Level 105 mg/dL (70-99) 144 mg/dL (70-99) Calcium Level 8.4 mg/dL (8.5-10.1) 7.8 mg/dL (8.5-10.1) Total Bilirubin 0.5 mg/dL (0.2-1.0) Direct Bilirubin 0.1 mg/dL (0.0-0.2) Aspartate Amino Transf (AST/SGOT) 24 U/L (15-37) Alanine Aminotransferase (ALT/SGPT) 16 U/L (14-59) Alkaline Phosphatase 85 U/L (46-116) Troponin I Quantitative < 0.017 ng/mL (0.000-0.055) Total Protein 6.7 g/dL (6.4-8.2) Albumin 3.3 g/dL (3.4-5.0) Nasal Screen MRSA (PCR) Negative (Negative) Laboratory Tests Test 01/22/17 04:56 White Blood Count 11.6 x10^3/uL (4.0-11.0) Red Blood Count 3.36 x10^6/uL (3.50-5.40) Hemoglobin 10.4 g/dL (12.0-15.5) Hematocrit 31.4 % (36.0-47.0) Mean Corpuscular Volume 94 fL (79-100) Mean Corpuscular Hemoglobin 31 pg (25-35) Mean Corpuscular Hemoglobin Concent 33 g/dL (31-37) Red Cell Distribution Width 16.3 % (11.5-14.5) Platelet Count 195 x10^3/uL (140-400) Neutrophils (%) (Auto) 92 % (31-73) Lymphocytes (%) (Auto) 4 % (24-48) Monocytes (%) (Auto) 4 % (0-9) Eosinophils (%) (Auto) 0 % (0-3) Basophils (%) (Auto) 0 % (0-3) Neutrophils # (Auto) 10.6 x10^3uL (1.8-7.7) Lymphocytes # (Auto) 0.5 x10^3/uL (1.0-4.8) Monocytes # (Auto) 0.4 x10^3/uL (0.0-1.1) Eosinophils # (Auto) 0.0 x10^3/uL (0.0-0.7) Basophils # (Auto) 0.0 x10^3/uL (0.0-0.2) Sodium Level 138 mmol/L (136-145) Potassium Level 3.4 mmol/L (3.5-5.1) Chloride Level 103 mmol/L (98-107) Carbon Dioxide Level 25 mmol/L (21-32) Anion Gap 10 (6-14) Blood Urea Nitrogen 5 mg/dL (7-20) Creatinine 0.5 mg/dL (0.6-1.0) Estimated GFR (Cockcroft-Gault) 117.0 Glucose Level 144 mg/dL (70-99) Calcium Level 7.8 mg/dL (8.5-10.1) Medications Current Medications Fentanyl Citrate (Fentanyl 2ml Vial) 25 mcg PRN Q15MIN PRN IV PAIN GREATER THAN 3/10 Last administered on 01/21/17 10:18; Start 01/21/17 at 07:00; Stop at 06:59; Status DC Sodium Chloride 1,000 ml @ 1,000 mls/hr Q1H IV Last administered on 01/21/17 07:36; Start 01/21/17 at 06:56; Stop 01/21/17 at 07:55; Status DC Sodium Chloride (Normal Saline Flush) 10 ml QSHIFT PRN IV AFTER MEDS AND BLOOD DRAWS Last administered on 01/21/17 07:36; Start 01/21/17 at 07:00 Ondansetron HCl (Zofran) 4 mg PRN Q8HRS PRN IV NAUSEA/VOMITING Last administered on 01/21/17 20:36; Start 01/21/17 at 08:00; Stop 01/22/17 at 07:59 ; Status DC Sodium Chloride 1,000 ml @ 80 mls/hr [id number] IV Last administered on 10:05; Start 01/21/17 at 07:48; Stop 01/22/17 at 07:47; Status DC Hydromorphone HCl (Dilaudid) 0.5 mg 1X ONCE IV Last administered on 01/21/17 07:59; Start 01/21/17 at 08:00; Stop 01/21/17 at 08:01; Status DC Acetaminophen (Tylenol) 325 mg PRN Q6HRS PRN PO MILD PAIN / TEMP; Start at 09:30 Hydralazine HCl (Apresoline) 10 mg PRN Q4HRS PRN IVP ELEVATED BP, SEE COMMENTS ; Start 01/21/17 at 09:30 Ondansetron HCl (Zofran) 4 mg PRN Q8HRS PRN IV NAUSEA/VOMITING; Start 01/21/17 at 09:30 Albuterol Sulfate (Ventolin Neb Soln) 2.5 mg PRN Q4HRS PRN NEB SHORTNESS OF BREATH; Start 01/21/17 at 09:30 Fentanyl Citrate (Fentanyl 2ml Vial) 25 mcg PRN Q6HRS PRN IV PAIN; Start at 10:00 Ropivacaine 53.3 ml/Epinephrine HCl 0.6 mg/Sodium Chloride 100 ml @ 100 mls/hr 1X PERIOP ONCE INT ART Last administered on 01/21/17 13:51; Start 01/21/17 at 12:30; Stop 01/21/17 at 13:29; Status DC Ondansetron HCl (Zofran) 4 mg PRN Q6HRS PRN IV NAUSEA/VOMITING; Start 01/21/17 at 12:15; Stop 01/22/17 at 12:14 Fentanyl Citrate (Fentanyl 2ml Vial) 25 mcg PRN Q5MIN PRN IV MILD PAIN Last administered on 01/21/17 15:45; Start 01/21/17 at 12:15; Stop 01/22/17 at 12:14 Fentanyl Citrate (Fentanyl 2ml Vial) 50 mcg PRN Q5MIN PRN IV MODERATE PAIN; Start 01/21/17 at 12:15; Stop 01/22/17 at 12:14 Morphine Sulfate 1 mg PRN Q10MIN PRN IV SEVERE PAIN; Start 01/21/17 at 12:15; Stop 01/22/17 at 12:14; Status UNV Ringer's Solution 1,000 ml @ 0 mls/hr Q0M IV Last administered on 01/21/17 12 :49; Start 01/21/17 at 12:08; Stop 01/22/17 at 00:07; Status DC Lidocaine HCl 2 ml PRN 1X PRN ID PRIOR TO IV START; Start 01/21/17 at 12:15; Stop 01/22/17 at 12:14 Hydromorphone HCl (Dilaudid) 0.5 mg PRN Q10MIN PRN IV SEV PAIN, Second choice; Start 01/21/17 at 12:15; Stop 01/22/17 at 12:14 Prochlorperazine Edisylate (Compazine) 5 mg PACU PRN PRN IV NAUSEA, MRX1 Last administered on 01/21/17t 14:59; Start 01/21/17 at 12:15; Stop 01/22/17 at 12:14 Fentanyl Citrate (Fentanyl 2ml Vial) 100 mcg STK-MED ONCE .ROUTE ; Start at 12:55; Stop 01/21/17 at 12:56; Status DC Sevoflurane (Ultane) 30 ml STK-MED ONCE IH ; Start 01/21/17 at 12:56; Stop 01/21 at 12:57; Status DC Dexamethasone Sodium Phosphate (Decadron) 20 mg STK-MED ONCE .ROUTE ; Start at 12:56; Stop 01/21/17 at 12:57; Status DC Lidocaine HCl (Lidocaine Pf 2% Vial) 5 ml STK-MED ONCE .ROUTE ; Start 01/21/17 at 12:56; Stop 01/21/17 at 12:57; Status DC Propofol 20 ml @ As Directed STK-MED ONCE IV ; Start 01/21/17 at 12:56; Stop at 12:57; Status DC Phenylephrine HCl (Barrera-Synephrine Inj) 10 mg STK-MED ONCE .ROUTE ; Start at 12:56; Stop 01/21/17 at 12:57; Status DC Ondansetron HCl (Zofran) 4 mg STK-MED ONCE .ROUTE ; Start 01/21/17 at 12:56; Stop 01/21/17 at 12:57; Status DC Cefazolin Sodium/ Dextrose 50 ml @ 100 mls/hr 1X ONCE IV ; Start 01/21/17 at 13:00; Stop 01/21/17 at 13:29; Status UNV Cefazolin Sodium/ Dextrose 50 ml @ 100 mls/hr 1X ONCE IV Last administered on 01/21/17 13:37; Start 01/21/17 at 14:00; Stop 01/21/17 at 14:29; Status DC Famotidine (Pepcid) 20 mg STK-MED ONCE .ROUTE ; Start 01/21/17 at 13:01; Stop at 13:02; Status DC Acetaminophen/ Hydrocodone Bitart (Lortab 7.5/325) 1 tab PRN Q3HRS PRN PO PAIN ; Start 01/21/17 at 14:45 Acetaminophen/ Hydrocodone Bitart (Lortab 10/325) 1 tab PRN Q3HRS PRN PO PAIN; Start 01/21/17 at 14:45 Tramadol HCl (Ultram) 50 mg PRN QID PRN PO PAIN Last administered on 01/22/17 09:47; Start 01/21/17 at 14:45 Oxycodone/ Acetaminophen (Percocet 5/325) 1 tab PRN Q3HRS PRN PO PAIN; Start at 14:45 Oxycodone/ Acetaminophen (Percocet 7.5/ 325) 1 tab PRN Q3HRS PRN PO PAIN; Start 01/21/17 at 14:45 Tramadol HCl (Ultram) 100 mg PRN Q3HRS PRN PO PAIN; Start 01/21/17 at 14:45 Morphine Sulfate 2 mg PRN Q1HR PRN IV PAIN; Start 01/21/17 at 14:45 Fentanyl Citrate (Fentanyl 2ml Vial) 25 mcg PRN Q1HR PRN IV PAIN; Start at 14:45 Diphenhydramine HCl (Benadryl) 25 mg PRN Q6HRS PRN IV ITCHING; Start 01/21/17 at 14:45 Multivitamins (Thera M Plus) 1 tab DAILY PO Last administered on 01/22/17 09: 47; Start 01/22/17 at 09:00 Senna/Docusate Sodium (Senna Plus) 1 tab DAILY PO Last administered on 09:47; Start 01/22/17 at 09:00 Ferrous Sulfate (Feosol) 325 mg BIDWMEALS PO Last administered on 7/22/17at 09: 47; Start 01/21/17 at 17:00 Dextrose/Sodium Chloride 1,000 ml @ 100 mls/hr Q10H IV Last administered on 02:18; Start 01/21/17 at 14:31 Prochlorperazine Maleate (Compazine) 10 mg PRN Q4HRS PRN PO NAUSEA/VOMITING; Start 01/21/17 at 14:45 Metoclopramide HCl (Reglan) 10 mg PRN Q4HRS PRN IV NAUSEA/VOMITING; Start 01/21 at 14:45 Magnesium Hydroxide (Milk Of Magnesia) 2,400 mg 1X PRN PRN PO CONSTIPATION; Start 01/22/17 at 06:00; Stop 01/23/17 at 05:59 Bisacodyl (Dulcolax Supp) 10 mg 1X PRN PRN NM CONSTIPATION; Start 01/22/17 at 16:00; Stop 01/23/17 at 15:59 Acetaminophen (Tylenol) 650 mg PRN Q4HRS PRN PO MILD PAIN / TEMP Last administered on 01/22/17 05:53; Start 01/21/17 at 14:45 Zolpidem Tartrate (Ambien) 5 mg PRN QHS PRN PO INSOMNIA, MAY REPEAT IN 1HR; Start 01/21/17 at 14:45 Calcium Carbonate/ Glycine (Tums) 500 mg PRN QID PRN PO INDIGESTION Last administered on 01/21/17 20:36; Start 01/21/17 at 14:45 Morphine Sulfate 4 mg PRN Q1HR PRN IV PAIN; Start 01/21/17 at 14:45 Morphine Sulfate 6 mg PRN Q1HR PRN IV PAIN; Start 01/21/17 at 14:45 Morphine Sulfate 8 mg PRN Q1HR PRN IV PAIN; Start 01/21/17 at 14:45 Sodium Chloride (Normal Saline Flush) 10 ml QSHIFT PRN IV AFTER MEDS AND BLOOD DRAWS; Start 01/21/17 at 14:45 Fentanyl Citrate (Fentanyl 2ml Vial) 50 mcg PRN Q1HR PRN IV PAIN; Start at 14:45 Prochlorperazine Edisylate (Compazine) 10 mg PRN Q4HRS PRN IV NAUSEA/VOMITING; Start 01/21/17 at 14:45 Dextrose (Dextrose 50%-Water Syringe) 12.5 gm PRN Q15MIN PRN IV SEE COMMENTS; Start 01/21/17 at 14:45 Cefazolin Sodium 1 gm/Sodium Chloride 50 ml @ 100 mls/hr Q6H IV ; Start at 16:00; Stop 01/21/17 at 16:41; Status DC Apixaban (Eliquis) 2.5 mg BID PO Last administered on 01/22/17 09:47; Start at 21:00 Diltiazem HCl (Cardizem Cd) 300 mg DAILYWSUP PO Last administered on 01/21/17 17:38; Start 01/21/17 at 17:00 Levothyroxine Sodium (Synthroid) 88 mcg DAILY06 PO Last administered on 05:51; Start 01/22/17 at 06:00 Potassium Chloride (Klor-Con) 10 meq TIDWMEALS PO Last administered on 09:48; Start 01/22/17 at 08:00 Pantoprazole Sodium (Protonix) 40 mg DAILYAC PO Last administered on 01/22/17 09:46; Start 01/22/17 at 07:30 Zolpidem Tartrate (Ambien) 5 mg QHS PO ; Start 01/21/17 at 21:00 Sodium Chloride 1,000 ml @ 75 mls/hr 1X ONCE IV Last administered on 17:40; Start 01/21/17 at 15:45; Stop 01/22/17 at 05:04; Status DC Cefazolin Sodium 1 gm/Sodium Chloride 50 ml @ 100 mls/hr Q6H IV Last administered on 01/22/17 08:00; Start 01/21/17 at 20:00; Stop 01/22/17 at 08:29 ; Status DC Pantoprazole Sodium (Protonix) 40 mg 1X ONCE PO Last administered on 17:38; Start 01/21/17 at 18:00; Stop 01/21/17 at 18:01; Status DC Active Scripts Active Diltiazem 24HR Cd (Diltiazem Hcl) 300 Mg Cap.er.24h 300 Mg PO DAILYWSUP sig: one p.o. daily with evening meal Eliquis (Apixaban) 2.5 Mg Tablet 2.5 Mg PO BID Reported Zolpidem Tartrate 10 Mg Tablet 0.5 Tab PO QHS Omeprazole 40 Mg Capsule.dr 1 Cap PO DAILY Levothyroxine Sodium 88 Mcg Tablet Unknown Dose PO DAILY Potassium Citrate 10 Meq Tablet.er 1 Tab PO TID Vitals/I & O Vital Sign - Last 24 Hours 01/21/17 01/21/17 01/21/17 01/21/17 11:11 12:33 14:30 14:30 Temp 97.7 99.2 97.7 99.2 Pulse 108 126 Resp 21 16 B/P (MAP) 149/59 167/77 Pulse Ox 98 95 O2 Delivery Room Air Room Air Mask Simple Mask O2 Flow Rate 10 10 01/21/17 01/21/17 01/21/17 01/21/17 14:41 14:45 14:52 15:00 Pulse 108 106 Resp 21 20 20 20 B/P (MAP) 157/69 128/54 Pulse Ox 98 92 95 O2 Delivery Room Air Room Air Nasal Cannula O2 Flow Rate 2 01/21/17 01/21/17 01/21/17 01/21/17 15:07 15:15 15:15 15:30 Pulse 100 110 Resp 20 18 20 B/P (MAP) 117/78 130/79 Pulse Ox 94 95 O2 Delivery Nasal Cannula Nasal Cannula Nasal Cannula O2 Flow Rate 3 2 3 01/21/17 01/21/17 01/21/17 01/21/17 15:39 15:45 15:45 16:15 Temp 96.5 96.5 Pulse 110 87 Resp 20 21 20 18 B/P (MAP) 111/67 124/59 (80) Pulse Ox 95 95 O2 Delivery Nasal Cannula Nasal Cannula Room Air O2 Flow Rate 3 01/21/17 01/21/17 01/21/17 01/21/17 16:30 16:45 17:00 17:15 Temp 97.1 97.1 Pulse 113 104 82 85 Resp 18 18 18 18 B/P (MAP) 134/66 (88) 139/53 (81) 137/71 (93) 130/64 (86) Pulse Ox 96 98 96 97 O2 Delivery Room Air Room Air Room Air Room Air 01/21/17 01/21/17 01/21/17 01/21/17 17:37 17:38 17:45 18:15 Temp 97.6 97.6 Pulse 100 85 97 Resp 18 18 B/P (MAP) 130/64 121/61 (81) 131/65 (87) Pulse Ox 98 98 O2 Delivery Nasal Cannula Room Air Room Air 01/21/17 01/21/17 01/21/17 01/21/17 18:30 19:30 20:01 23:00 Temp 97.9 97.9 Pulse 77 95 Resp 16 18 B/P (MAP) 126/57 (80) 142/76 (98) Pulse Ox 98 98 O2 Delivery Nasal Cannula Nasal Cannula Room Air Nasal Cannula O2 Flow Rate 3.0 3.0 01/22/17 01/22/17 01/22/17 03:00 07:00 09:47 Temp 97.8 97.7 97.8 97.7 Pulse 84 76 Resp 18 20 B/P (MAP) 147/58 (87) 127/56 (79) Pulse Ox 98 99 O2 Delivery Nasal Cannula Nasal Cannula O2 Flow Rate 3.0 Intake and Output 01/21/17 01/21/17 01/22/17 15:00 23:00 07:00 Intake Total 2000 ml 800 ml 300 ml Output Total 100 ml 1750 ml 1225 ml Balance 1900 ml -950 ml -925 ml SONG JOHNSON MD Jan 22, 2017 11:08
--- NOTE | 2017-01-22 11:39 | PDOC ---
PROGRESS NOTES Subjective Subjective Doing well. Pain controlled. Objective Vital Signs Vital Signs Date Time Temp Pulse Resp B/P (MAP) Pulse Ox O2 Delivery O2 Flow Rate FiO2 01/22/17 11:00 97.7 68 20 112/72 (85) 98 Room Air 97.7 01/22/17 03:00 3.0 Physical Exam Sitting up in bed. Right hip dressing dry and intact. Calf soft and NT with negative Clifford's. Good dorsiflexion and plantarflexion with no evidence of neurovascular injury. Peripheral pulses and light touch sensation intact. Labs Laboratory Tests Test 01/21/17 06:55 01/21/17 11:00 01/22/17 04:56 White Blood Count 5.6 x10^3/uL (4.0-11.0) 11.6 x10^3/uL (4.0-11.0) Red Blood Count 4.01 x10^6/uL (3.50-5.40) 3.36 x10^6/uL (3.50-5.40) Hemoglobin 12.3 g/dL (12.0-15.5) 10.4 g/dL (12.0-15.5) Hematocrit 37.5 % (36.0-47.0) 31.4 % (36.0-47.0) Mean Corpuscular Volume 94 fL (79-100) 94 fL (79-100) Mean Corpuscular Hemoglobin 31 pg (25-35) 31 pg (25-35) Mean Corpuscular Hemoglobin Concent 33 g/dL (31-37) 33 g/dL (31-37) Red Cell Distribution Width 16.6 % (11.5-14.5) 16.3 % (11.5-14.5) Platelet Count 240 x10^3/uL (140-400) 195 x10^3/uL (140-400) Neutrophils (%) (Auto) 69 % (31-73) 92 % (31-73) Lymphocytes (%) (Auto) 23 % (24-48) 4 % (24-48) Monocytes (%) (Auto) 6 % (0-9) 4 % (0-9) Eosinophils (%) (Auto) 1 % (0-3) 0 % (0-3) Basophils (%) (Auto) 1 % (0-3) 0 % (0-3) Neutrophils # (Auto) 3.8 x10^3uL (1.8-7.7) 10.6 x10^3uL (1.8-7.7) Lymphocytes # (Auto) 1.3 x10^3/uL (1.0-4.8) 0.5 x10^3/uL (1.0-4.8) Monocytes # (Auto) 0.4 x10^3/uL (0.0-1.1) 0.4 x10^3/uL (0.0-1.1) Eosinophils # (Auto) 0.1 x10^3/uL (0.0-0.7) 0.0 x10^3/uL (0.0-0.7) Basophils # (Auto) 0.0 x10^3/uL (0.0-0.2) 0.0 x10^3/uL (0.0-0.2) Prothrombin Time 13.4 SEC (11.7-14.0) Prothromb Time International Ratio 1.1 (0.8-1.1) Activated Partial Thromboplast Time 31 SEC (24-38) Sodium Level 143 mmol/L (136-145) 138 mmol/L (136-145) Potassium Level 3.3 mmol/L (3.5-5.1) 3.4 mmol/L (3.5-5.1) Chloride Level 106 mmol/L (98-107) 103 mmol/L (98-107) Carbon Dioxide Level 25 mmol/L (21-32) 25 mmol/L (21-32) Anion Gap 12 (6-14) 10 (6-14) Blood Urea Nitrogen 9 mg/dL (7-20) 5 mg/dL (7-20) Creatinine 0.8 mg/dL (0.6-1.0) 0.5 mg/dL (0.6-1.0) Estimated GFR (Cockcroft-Gault) 68.0 117.0 Glucose Level 105 mg/dL (70-99) 144 mg/dL (70-99) Calcium Level 8.4 mg/dL (8.5-10.1) 7.8 mg/dL (8.5-10.1) Total Bilirubin 0.5 mg/dL (0.2-1.0) Direct Bilirubin 0.1 mg/dL (0.0-0.2) Aspartate Amino Transf (AST/SGOT) 24 U/L (15-37) Alanine Aminotransferase (ALT/SGPT) 16 U/L (14-59) Alkaline Phosphatase 85 U/L (46-116) Troponin I Quantitative < 0.017 ng/mL (0.000-0.055) Total Protein 6.7 g/dL (6.4-8.2) Albumin 3.3 g/dL (3.4-5.0) Nasal Screen MRSA (PCR) Negative (Negative) Laboratory Tests Test 01/22/17 04:56 White Blood Count 11.6 x10^3/uL (4.0-11.0) Red Blood Count 3.36 x10^6/uL (3.50-5.40) Hemoglobin 10.4 g/dL (12.0-15.5) Hematocrit 31.4 % (36.0-47.0) Mean Corpuscular Volume 94 fL (79-100) Mean Corpuscular Hemoglobin 31 pg (25-35) Mean Corpuscular Hemoglobin Concent 33 g/dL (31-37) Red Cell Distribution Width 16.3 % (11.5-14.5) Platelet Count 195 x10^3/uL (140-400) Neutrophils (%) (Auto) 92 % (31-73) Lymphocytes (%) (Auto) 4 % (24-48) Monocytes (%) (Auto) 4 % (0-9) Eosinophils (%) (Auto) 0 % (0-3) Basophils (%) (Auto) 0 % (0-3) Neutrophils # (Auto) 10.6 x10^3uL (1.8-7.7) Lymphocytes # (Auto) 0.5 x10^3/uL (1.0-4.8) Monocytes # (Auto) 0.4 x10^3/uL (0.0-1.1) Eosinophils # (Auto) 0.0 x10^3/uL (0.0-0.7) Basophils # (Auto) 0.0 x10^3/uL (0.0-0.2) Sodium Level 138 mmol/L (136-145) Potassium Level 3.4 mmol/L (3.5-5.1) Chloride Level 103 mmol/L (98-107) Carbon Dioxide Level 25 mmol/L (21-32) Anion Gap 10 (6-14) Blood Urea Nitrogen 5 mg/dL (7-20) Creatinine 0.5 mg/dL (0.6-1.0) Estimated GFR (Cockcroft-Gault) 117.0 Glucose Level 144 mg/dL (70-99) Calcium Level 7.8 mg/dL (8.5-10.1) Assessment Assessment POD #1 right hip IM nail Problems: Plan Plan of Care Continue POC including DVT ppx and therapy. Daily dressing change; switch to Aquacel dressing at discharge. Pt reports she will go to [facility] at discharge, probably Tuesday. MAXIMILIAN JAMES Jan 22, 2017 11:39
--- NOTE | 2017-01-22 12:18 | PDOC2 ---
CONSULT Date of Consult Date of Consult DATE: 01/22/17 TIME: 12:11 Identification/Chief Complaint Chief Complaint Right hip pain Problems: Source Source: Chart review, Patient History of Present Illness Reason for Visit: This patient is a very pleasant 86 year old female who was found down in a driveway earlier this morning as she had tripped and fallen over her hose while watering her plants. She been on the ground for approximately 10-15 minutes before a passerby found her on the ground with her right side down complaining of severe right hip pain. Patient denies loss of conscious, denies back or shoulder pain, denies abdominal pain prior to fall. At this point she'll he complains of right hip pain is severe in nature worse with range of motion and movements of that hip in any direction. It is 10 of 10 described as sharp and stabbing. There is no radiation of this pain to the back. Patient denies any loss of sensation in the lower leg denies any ankle or knee pain. Patient is no pain on the left and no back pain. Patient complains of no chest pain prior or after the fall. She complains of neck discomfort on the right side of her neck that is not midline. She denies any numbness and tingly to upper extremity's bilaterally. She remembers the fall reverse injury. She denies any logic deficits before or after the fall. She does have multiple medical problems to include hypertension, hyperlipidemia, high cholesterol, she was a prior smoker. Lives independently and ambulates without issue. During EMS transport she was given 5 mg of Versed, and 25 g of fentanyl for her comfort. She does last meal was 5:30 this morning Past Medical History Cardiovascular: AFIB, HTN, Syncope, Hyperlipidemia Pulmonary: No pertinent hx CENTRAL NERVOUS SYSTEM: Other GI: GERD Heme/Onc: No pertinent hx, Other Hepatobiliary: No pertinent hx Psych: Anxiety Musculoskeletal: Osteoarthritis Rheumatologic: No pertinent hx Infectious disease: No pertinent hx Endocrine: Hypothyroidism Past Surgical History Past Surgical History: Appendectomy, Cholecystectomy, , Tonsillectomy , Hysterectomy Family History Family History: Heart Disease Social History ALCOHOL: none Drugs: None Lives: with Family Current Problem List Problem List Problems Medical Problems: (1) Hip fracture, right Status: Acute Current Medications Current Medications Current Medications Fentanyl Citrate (Fentanyl 2ml Vial) 25 mcg PRN Q15MIN PRN IV PAIN GREATER THAN 3/10 Last administered on 01/21/17 10:18; Start 01/21/17 at 07:00; Stop at 06:59; Status DC Sodium Chloride 1,000 ml @ 1,000 mls/hr Q1H IV Last administered on 01/21/17 07:36; Start 01/21/17 at 06:56; Stop 01/21/17 at 07:55; Status DC Sodium Chloride (Normal Saline Flush) 10 ml QSHIFT PRN IV AFTER MEDS AND BLOOD DRAWS Last administered on 01/21/17 07:36; Start 01/21/17 at 07:00 Ondansetron HCl (Zofran) 4 mg PRN Q8HRS PRN IV NAUSEA/VOMITING Last administered on 01/21/17 20:36; Start 01/21/17 at 08:00; Stop 01/22/17 at 07:59 ; Status DC Sodium Chloride 1,000 ml @ 80 mls/hr [id number] IV Last administered on 10:05; Start 01/21/17 at 07:48; Stop 01/22/17 at 07:47; Status DC Hydromorphone HCl (Dilaudid) 0.5 mg 1X ONCE IV Last administered on 01/21/17 07:59; Start 01/21/17 at 08:00; Stop 01/21/17 at 08:01; Status DC Acetaminophen (Tylenol) 325 mg PRN Q6HRS PRN PO MILD PAIN / TEMP; Start at 09:30 Hydralazine HCl (Apresoline) 10 mg PRN Q4HRS PRN IVP ELEVATED BP, SEE COMMENTS ; Start 01/21/17 at 09:30 Ondansetron HCl (Zofran) 4 mg PRN Q8HRS PRN IV NAUSEA/VOMITING; Start 01/21/17 at 09:30 Albuterol Sulfate (Ventolin Neb Soln) 2.5 mg PRN Q4HRS PRN NEB SHORTNESS OF BREATH; Start 01/21/17 at 09:30 Fentanyl Citrate (Fentanyl 2ml Vial) 25 mcg PRN Q6HRS PRN IV PAIN; Start at 10:00 Ropivacaine 53.3 ml/Epinephrine HCl 0.6 mg/Sodium Chloride 100 ml @ 100 mls/hr 1X PERIOP ONCE INT ART Last administered on 01/21/17 13:51; Start 01/21/17 at 12:30; Stop 01/21/17 at 13:29; Status DC Ondansetron HCl (Zofran) 4 mg PRN Q6HRS PRN IV NAUSEA/VOMITING; Start 01/21/17 at 12:15; Stop 01/22/17 at 12:14 Fentanyl Citrate (Fentanyl 2ml Vial) 25 mcg PRN Q5MIN PRN IV MILD PAIN Last administered on 01/21/17 15:45; Start 01/21/17 at 12:15; Stop 01/22/17 at 12:14 Fentanyl Citrate (Fentanyl 2ml Vial) 50 mcg PRN Q5MIN PRN IV MODERATE PAIN; Start 01/21/17 at 12:15; Stop 01/22/17 at 12:14 Morphine Sulfate 1 mg PRN Q10MIN PRN IV SEVERE PAIN; Start 01/21/17 at 12:15; Stop 01/22/17 at 12:14; Status UNV Ringer's Solution 1,000 ml @ 0 mls/hr Q0M IV Last administered on 01/21/17 12 :49; Start 01/21/17 at 12:08; Stop 01/22/17 at 00:07; Status DC Lidocaine HCl 2 ml PRN 1X PRN ID PRIOR TO IV START; Start 01/21/17 at 12:15; Stop 01/22/17 at 12:14 Hydromorphone HCl (Dilaudid) 0.5 mg PRN Q10MIN PRN IV SEV PAIN, Second choice; Start 01/21/17 at 12:15; Stop 01/22/17 at 12:14 Prochlorperazine Edisylate (Compazine) 5 mg PACU PRN PRN IV NAUSEA, MRX1 Last administered on 01/21/17 14:59; Start 01/21/17 at 12:15; Stop 01/22/17 at 12:14 Fentanyl Citrate (Fentanyl 2ml Vial) 100 mcg STK-MED ONCE .ROUTE ; Start at 12:55; Stop 01/21/17 at 12:56; Status DC Sevoflurane (Ultane) 30 ml STK-MED ONCE IH ; Start 01/21/17 at 12:56; Stop 01/21 at 12:57; Status DC Dexamethasone Sodium Phosphate (Decadron) 20 mg STK-MED ONCE .ROUTE ; Start at 12:56; Stop 01/21/17 at 12:57; Status DC Lidocaine HCl (Lidocaine Pf 2% Vial) 5 ml STK-MED ONCE .ROUTE ; Start 01/21/17 at 12:56; Stop 01/21/17 at 12:57; Status DC Propofol 20 ml @ As Directed STK-MED ONCE IV ; Start 01/21/17 at 12:56; Stop at 12:57; Status DC Phenylephrine HCl (Barrera-Synephrine Inj) 10 mg STK-MED ONCE .ROUTE ; Start at 12:56; Stop 01/21/17 at 12:57; Status DC Ondansetron HCl (Zofran) 4 mg STK-MED ONCE .ROUTE ; Start 01/21/17 at 12:56; Stop 01/21/17 at 12:57; Status DC Cefazolin Sodium/ Dextrose 50 ml @ 100 mls/hr 1X ONCE IV ; Start 01/21/17 at 13:00; Stop 01/21/17 at 13:29; Status UNV Cefazolin Sodium/ Dextrose 50 ml @ 100 mls/hr 1X ONCE IV Last administered on 01/21/17t 13:37; Start 01/21/17 at 14:00; Stop 01/21/17 at 14:29; Status DC Famotidine (Pepcid) 20 mg STK-MED ONCE .ROUTE ; Start 01/21/17 at 13:01; Stop at 13:02; Status DC Acetaminophen/ Hydrocodone Bitart (Lortab 7.5/325) 1 tab PRN Q3HRS PRN PO PAIN ; Start 01/21/17 at 14:45 Acetaminophen/ Hydrocodone Bitart (Lortab 10/325) 1 tab PRN Q3HRS PRN PO PAIN; Start 01/21/17 at 14:45 Tramadol HCl (Ultram) 50 mg PRN QID PRN PO PAIN Last administered on 01/22/17t 09:47; Start 01/21/17 at 14:45 Oxycodone/ Acetaminophen (Percocet 5/325) 1 tab PRN Q3HRS PRN PO PAIN; Start at 14:45 Oxycodone/ Acetaminophen (Percocet 7.5/ 325) 1 tab PRN Q3HRS PRN PO PAIN; Start 01/21/17 at 14:45 Tramadol HCl (Ultram) 100 mg PRN Q3HRS PRN PO PAIN; Start 01/21/17 at 14:45 Morphine Sulfate 2 mg PRN Q1HR PRN IV PAIN; Start 01/21/17 at 14:45 Fentanyl Citrate (Fentanyl 2ml Vial) 25 mcg PRN Q1HR PRN IV PAIN; Start at 14:45 Diphenhydramine HCl (Benadryl) 25 mg PRN Q6HRS PRN IV ITCHING; Start 01/21/17 at 14:45 Multivitamins (Thera M Plus) 1 tab DAILY PO Last administered on 01/22/17 09: 47; Start 01/22/17 at 09:00 Senna/Docusate Sodium (Senna Plus) 1 tab DAILY PO Last administered on 09:47; Start 01/22/17 at 09:00 Ferrous Sulfate (Feosol) 325 mg BIDWMEALS PO Last administered on 01/22/17 09: 47; Start 01/21/17 at 17:00 Dextrose/Sodium Chloride 1,000 ml @ 100 mls/hr Q10H IV Last administered on 02:18; Start 01/21/17 at 14:31 Prochlorperazine Maleate (Compazine) 10 mg PRN Q4HRS PRN PO NAUSEA/VOMITING; Start 01/21/17 at 14:45 Metoclopramide HCl (Reglan) 10 mg PRN Q4HRS PRN IV NAUSEA/VOMITING; Start 01/21 at 14:45 Magnesium Hydroxide (Milk Of Magnesia) 2,400 mg 1X PRN PRN PO CONSTIPATION; Start 01/22/17 at 06:00; Stop 01/23/17 at 05:59 Bisacodyl (Dulcolax Supp) 10 mg 1X PRN PRN SC CONSTIPATION; Start 01/22/17 at 16:00; Stop 01/23/17 at 15:59 Acetaminophen (Tylenol) 650 mg PRN Q4HRS PRN PO MILD PAIN / TEMP Last administered on 01/22/17 05:53; Start 01/21/17 at 14:45 Zolpidem Tartrate (Ambien) 5 mg PRN QHS PRN PO INSOMNIA, MAY REPEAT IN 1HR; Start 01/21/17 at 14:45 Calcium Carbonate/ Glycine (Tums) 500 mg PRN QID PRN PO INDIGESTION Last administered on 01/21/17 20:36; Start 01/21/17 at 14:45 Morphine Sulfate 4 mg PRN Q1HR PRN IV PAIN; Start 01/21/17 at 14:45 Morphine Sulfate 6 mg PRN Q1HR PRN IV PAIN; Start 01/21/17 at 14:45 Morphine Sulfate 8 mg PRN Q1HR PRN IV PAIN; Start 01/21/17 at 14:45 Sodium Chloride (Normal Saline Flush) 10 ml QSHIFT PRN IV AFTER MEDS AND BLOOD DRAWS; Start 01/21/17 at 14:45 Fentanyl Citrate (Fentanyl 2ml Vial) 50 mcg PRN Q1HR PRN IV PAIN; Start at 14:45 Prochlorperazine Edisylate (Compazine) 10 mg PRN Q4HRS PRN IV NAUSEA/VOMITING; Start 01/21/17 at 14:45 Dextrose (Dextrose 50%-Water Syringe) 12.5 gm PRN Q15MIN PRN IV SEE COMMENTS; Start 01/21/17 at 14:45 Cefazolin Sodium 1 gm/Sodium Chloride 50 ml @ 100 mls/hr Q6H IV ; Start at 16:00; Stop 01/21/17 at 16:41; Status DC Apixaban (Eliquis) 2.5 mg BID PO Last administered on 01/22/17 09:47; Start at 21:00 Diltiazem HCl (Cardizem Cd) 300 mg DAILYWSUP PO Last administered on 01/21/17 17:38; Start 01/21/17 at 17:00 Levothyroxine Sodium (Synthroid) 88 mcg DAILY06 PO Last administered on 05:51; Start 01/22/17 at 06:00 Potassium Chloride (Klor-Con) 10 meq TIDWMEALS PO Last administered on 09:48; Start 01/22/17 at 08:00 Pantoprazole Sodium (Protonix) 40 mg DAILYAC PO Last administered on 01/22/17 09:46; Start 01/22/17 at 07:30 Zolpidem Tartrate (Ambien) 5 mg QHS PO ; Start 01/21/17 at 21:00 Sodium Chloride 1,000 ml @ 75 mls/hr 1X ONCE IV Last administered on 17:40; Start 01/21/17 at 15:45; Stop 01/22/17 at 05:04; Status DC Cefazolin Sodium 1 gm/Sodium Chloride 50 ml @ 100 mls/hr Q6H IV Last administered on 01/22/17 08:00; Start 01/21/17 at 20:00; Stop 01/22/17 at 08:29 ; Status DC Pantoprazole Sodium (Protonix) 40 mg 1X ONCE PO Last administered on 17:38; Start 01/21/17 at 18:00; Stop 01/21/17 at 18:01; Status DC Active Scripts Active Diltiazem 24HR Cd (Diltiazem Hcl) 300 Mg Cap.er.24h 300 Mg PO DAILYWSUP sig: one p.o. daily with evening meal Eliquis (Apixaban) 2.5 Mg Tablet 2.5 Mg PO BID Reported Zolpidem Tartrate 10 Mg Tablet 0.5 Tab PO QHS Omeprazole 40 Mg Capsule.dr 1 Cap PO DAILY Levothyroxine Sodium 88 Mcg Tablet Unknown Dose PO DAILY Potassium Citrate 10 Meq Tablet.er 1 Tab PO TID Allergies Allergies: Coded Allergies: codeine (Verified Allergy, Severe, Shortness of Air, 01/21/17) ROS Hematological and Lymphatic: No: Bleeding Problems, Blood Clots Respiratory: No: Cough, Shortness of breath Cardiovascular: No Chest Pain Musculoskeletal: Yes Joint Pain Physical Exam General: Alert, Cooperative HEENT: Atraumatic Lungs: Normal air movement Heart: Regular rate Abdomen: Soft MUSCULOSKELETAL: Abnormal exam of right (hip. The hip is held in a splinted position. Tenderness around the proximal femur and hip joint. Skin is intact over the fracture. There is doubtful ecchymosis at this time. She can dorsiflex and plantarflex the toes, and the pulses and sensation in the right foot are intact. She has no pain or deformity or malalignment of the left lower extremity , or bilateral upper extremities. Normal strength in the other 3 extremities. The right lower extremity has no focal neurologic deficit but it is difficult to assess the strength fully due to the pain and fractured limb.) Vitals VITALS Vital Signs Date Time Temp Pulse Resp B/P (MAP) Pulse Ox O2 Delivery O2 Flow Rate FiO2 01/22/17 11:00 97.7 68 20 112/72 (85) 98 Room Air 97.7 01/22/17 03:00 3.0 Labs Labs Laboratory Tests Test 01/21/17 06:55 01/21/17 11:00 01/22/17 04:56 White Blood Count 5.6 x10^3/uL (4.0-11.0) 11.6 x10^3/uL (4.0-11.0) Red Blood Count 4.01 x10^6/uL (3.50-5.40) 3.36 x10^6/uL (3.50-5.40) Hemoglobin 12.3 g/dL (12.0-15.5) 10.4 g/dL (12.0-15.5) Hematocrit 37.5 % (36.0-47.0) 31.4 % (36.0-47.0) Mean Corpuscular Volume 94 fL (79-100) 94 fL (79-100) Mean Corpuscular Hemoglobin 31 pg (25-35) 31 pg (25-35) Mean Corpuscular Hemoglobin Concent 33 g/dL (31-37) 33 g/dL (31-37) Red Cell Distribution Width 16.6 % (11.5-14.5) 16.3 % (11.5-14.5) Platelet Count 240 x10^3/uL (140-400) 195 x10^3/uL (140-400) Neutrophils (%) (Auto) 69 % (31-73) 92 % (31-73) Lymphocytes (%) (Auto) 23 % (24-48) 4 % (24-48) Monocytes (%) (Auto) 6 % (0-9) 4 % (0-9) Eosinophils (%) (Auto) 1 % (0-3) 0 % (0-3) Basophils (%) (Auto) 1 % (0-3) 0 % (0-3) Neutrophils # (Auto) 3.8 x10^3uL (1.8-7.7) 10.6 x10^3uL (1.8-7.7) Lymphocytes # (Auto) 1.3 x10^3/uL (1.0-4.8) 0.5 x10^3/uL (1.0-4.8) Monocytes # (Auto) 0.4 x10^3/uL (0.0-1.1) 0.4 x10^3/uL (0.0-1.1) Eosinophils # (Auto) 0.1 x10^3/uL (0.0-0.7) 0.0 x10^3/uL (0.0-0.7) Basophils # (Auto) 0.0 x10^3/uL (0.0-0.2) 0.0 x10^3/uL (0.0-0.2) Prothrombin Time 13.4 SEC (11.7-14.0) Prothromb Time International Ratio 1.1 (0.8-1.1) Activated Partial Thromboplast Time 31 SEC (24-38) Sodium Level 143 mmol/L (136-145) 138 mmol/L (136-145) Potassium Level 3.3 mmol/L (3.5-5.1) 3.4 mmol/L (3.5-5.1) Chloride Level 106 mmol/L (98-107) 103 mmol/L (98-107) Carbon Dioxide Level 25 mmol/L (21-32) 25 mmol/L (21-32) Anion Gap 12 (6-14) 10 (6-14) Blood Urea Nitrogen 9 mg/dL (7-20) 5 mg/dL (7-20) Creatinine 0.8 mg/dL (0.6-1.0) 0.5 mg/dL (0.6-1.0) Estimated GFR (Cockcroft-Gault) 68.0 117.0 Glucose Level 105 mg/dL (70-99) 144 mg/dL (70-99) Calcium Level 8.4 mg/dL (8.5-10.1) 7.8 mg/dL (8.5-10.1) Total Bilirubin 0.5 mg/dL (0.2-1.0) Direct Bilirubin 0.1 mg/dL (0.0-0.2) Aspartate Amino Transf (AST/SGOT) 24 U/L (15-37) Alanine Aminotransferase (ALT/SGPT) 16 U/L (14-59) Alkaline Phosphatase 85 U/L (46-116) Troponin I Quantitative < 0.017 ng/mL (0.000-0.055) Total Protein 6.7 g/dL (6.4-8.2) Albumin 3.3 g/dL (3.4-5.0) Nasal Screen MRSA (PCR) Negative (Negative) Laboratory Tests Test 01/22/17 04:56 White Blood Count 11.6 x10^3/uL (4.0-11.0) Red Blood Count 3.36 x10^6/uL (3.50-5.40) Hemoglobin 10.4 g/dL (12.0-15.5) Hematocrit 31.4 % (36.0-47.0) Mean Corpuscular Volume 94 fL (79-100) Mean Corpuscular Hemoglobin 31 pg (25-35) Mean Corpuscular Hemoglobin Concent 33 g/dL (31-37) Red Cell Distribution Width 16.3 % (11.5-14.5) Platelet Count 195 x10^3/uL (140-400) Neutrophils (%) (Auto) 92 % (31-73) Lymphocytes (%) (Auto) 4 % (24-48) Monocytes (%) (Auto) 4 % (0-9) Eosinophils (%) (Auto) 0 % (0-3) Basophils (%) (Auto) 0 % (0-3) Neutrophils # (Auto) 10.6 x10^3uL (1.8-7.7) Lymphocytes # (Auto) 0.5 x10^3/uL (1.0-4.8) Monocytes # (Auto) 0.4 x10^3/uL (0.0-1.1) Eosinophils # (Auto) 0.0 x10^3/uL (0.0-0.7) Basophils # (Auto) 0.0 x10^3/uL (0.0-0.2) Sodium Level 138 mmol/L (136-145) Potassium Level 3.4 mmol/L (3.5-5.1) Chloride Level 103 mmol/L (98-107) Carbon Dioxide Level 25 mmol/L (21-32) Anion Gap 10 (6-14) Blood Urea Nitrogen 5 mg/dL (7-20) Creatinine 0.5 mg/dL (0.6-1.0) Estimated GFR (Cockcroft-Gault) 117.0 Glucose Level 144 mg/dL (70-99) Calcium Level 7.8 mg/dL (8.5-10.1) Images Images X-rays of the hip and pelvis show a displaced intertrochanteric fracture, and I reviewed the reports and images Assessment/Plan Assessment/Plan Displaced intertrochanteric fracture of right femur, initial encounter for closed fracture S72.141A She and I and her daughter discussed the options for treatment for her displaced right hip fracture. Technically nonoperative treatment is an option, but I don't recommend it due to the high risk of blood clots, pneumonia, bedsores, or other complications. They agree. I recommend surgical fixation. I recommended intramedullary nail, and I discussed with them the risks of this such as infection, malunion or nonunion, hardware failure, need for further surgeries, bleeding, infection, blood clots, or other potential surgical or anesthetic complications. All of their questions about surgery were answered and they desired to proceed with a right hip intramedullary nailing. Written consent was obtained. SARAHI SY MD Jan 22, 2017 12:18
[2017-01-22 13:13] LABS: ANISOCYTOSIS SLIGHT; PLT ESTIMATE ADEQUATE (ADEQUATE)
[2017-01-22 15:00] VITALS: BP 140/47
[2017-01-22] MEDS: HYDROcodone/APAP 7.5/325MG 1 TAB TABLET PO PRN (15:05)
[2017-01-22] MEDS ORDERED: BISACODYL 10 MG SUPP.RECT. PR PRN (16:00)
[2017-01-22 19:00] VITALS: BP 151/66
[2017-01-22] MEDS: ZOLPIDEM 5 MG TABLET. PO SCH (22:19)
[2017-01-22 23:00] VITALS: BP 111/57
[2017-01-23 03:00] VITALS: BP 119/65
[2017-01-23 05:59] LABS: BASO % 0 % (0-3); EOS % 0 % (0-3); HEMATOCRIT 27.7 % (36.0-47.0); HEMOGLOBIN 9.5 g/dL (12.0-15.5); LYMPH # 1.2 x10^3/uL (1.0-4.8); LYMPH % 12 % (24-48); MEAN CORPUSCULAR HEMOGLOBIN 32 pg (25-35); MEAN CORPUSCULAR HGB CONC 34 g/dL (31-37); MEAN CORPUSCULAR VOLUME 92 fL (79-100); MONO % 9 % (0-9); NEUT % 79 % (31-73); PLATELET COUNT 191 x10^3/uL (140-400); RED BLOOD COUNT 3.01 x10^6/uL (3.50-5.40); RED CELL DISTRIBUTION WIDTH 16.6 % (11.5-14.5); WHITE BLOOD COUNT 10.4 x10^3/uL (4.0-11.0)
[2017-01-23] MEDS: LEVOTHYROXINE 88 MCG TABLET PO SCH (06:00)
[2017-01-23 06:18] LABS: CALCIUM 8.1 mg/dL (8.5-10.1); CREATININE 0.5 mg/dL (0.6-1.0); POTASSIUM 3.6 mmol/L (3.5-5.1)
[2017-01-23] MEDS: IV DEXTROSE 5 %-0.45 % NACL 1,000 ML IV SCH ×3 (06:31→23:36)
[2017-01-23 07:00] VITALS: BP 122/65
[2017-01-23] MEDS: MULTIVITAMIN with MINERAL TABLET. PO SCH (08:09)
[2017-01-23] MEDS: APIXABAN 2.5 MG TABLET. PO SCH ×2 (08:09→23:36)
[2017-01-23] MEDS: POTASSIUM CHLORIDE 10 MEQ TABLET.ER. PO SCH ×3 (08:09→18:37)
[2017-01-23] MEDS: CALCIUM CARBONATE 500 MG TAB.CHEW PO PRN ×2 (08:10→15:52)
[2017-01-23] MEDS: PANTOPRAZOLE 40 MG TABLET.DR. PO SCH (08:10)
[2017-01-23] MEDS: FERROUS SULFATE 325 MG TABLET. PO SCH ×2 (08:10→18:36)
[2017-01-23] MEDS: SENNOSIDES/DOCUSATE 8.6/50MG TABLET. PO SCH (08:10)
[2017-01-23] MEDS: fentaNYL PF VIAL 100 MCG/2 ML VIAL IV PRN ×2 (08:11→11:31)
[2017-01-23] MEDS: traMADol 50 MG TABLET PO PRN ×2 (08:19→14:43)
--- NOTE | 2017-01-23 10:03 | PDOC ---
PROGRESS NOTES Chief Complaint Chief Complaint Chief complaint: Fall Assessment and plan Acute closed right intertrochanteric hip fracture status post intramedullary implant. Chronic A. fib rate controlled Hypertension Hypothyroidism GERD Pain due to the above plan Continue current regimen Tylenol or Motrin for pain control patient declined to take any narcotics Continue physical therapy and occupational therapy Continue current oral and able ablation for A. fib and a DVT prophylaxis [facility], patient is inclined [facility] Continue current regimen appears to be stable Plan discussed with patient's daughter and family members at bedside agree with current management Vitals Vitals Vital Signs Date Time Temp Pulse Resp B/P (MAP) Pulse Ox O2 Delivery O2 Flow Rate FiO2 01/23/17 08:19 Nasal Cannula 3.0 01/23/17 07:00 98.7 92 18 122/65 (84) 96 98.7 Physical Exam General: Alert, Cooperative Heart: Regular rate Lungs: Clear Abdomen: Soft Extremities: No clubbing, No cyanosis Skin: No rashes Labs LABS Laboratory Tests Test 01/23/17 05:10 White Blood Count 10.4 x10^3/uL (4.0-11.0) Red Blood Count 3.01 x10^6/uL (3.50-5.40) Hemoglobin 9.5 g/dL (12.0-15.5) Hematocrit 27.7 % (36.0-47.0) Mean Corpuscular Volume 92 fL (79-100) Mean Corpuscular Hemoglobin 32 pg (25-35) Mean Corpuscular Hemoglobin Concent 34 g/dL (31-37) Red Cell Distribution Width 16.6 % (11.5-14.5) Platelet Count 191 x10^3/uL (140-400) Neutrophils (%) (Auto) 79 % (31-73) Lymphocytes (%) (Auto) 12 % (24-48) Monocytes (%) (Auto) 9 % (0-9) Eosinophils (%) (Auto) 0 % (0-3) Basophils (%) (Auto) 0 % (0-3) Neutrophils # (Auto) 8.2 x10^3uL (1.8-7.7) Lymphocytes # (Auto) 1.2 x10^3/uL (1.0-4.8) Monocytes # (Auto) 0.9 x10^3/uL (0.0-1.1) Eosinophils # (Auto) 0.0 x10^3/uL (0.0-0.7) Basophils # (Auto) 0.0 x10^3/uL (0.0-0.2) Sodium Level 139 mmol/L (136-145) Potassium Level 3.6 mmol/L (3.5-5.1) Chloride Level 105 mmol/L (98-107) Carbon Dioxide Level 27 mmol/L (21-32) Anion Gap 7 (6-14) Blood Urea Nitrogen 5 mg/dL (7-20) Creatinine 0.5 mg/dL (0.6-1.0) Estimated GFR (Cockcroft-Gault) 117.0 Glucose Level 102 mg/dL (70-99) Calcium Level 8.1 mg/dL (8.5-10.1) Assessment and Plan Assessmemt and Plan Problems Medical Problems: (1) Hip fracture, right Status: Acute Problems: Comment Review of Relevant I have reviewed the following items nikki (where applicable) has been applied. Labs Laboratory Tests Test 01/21/17 11:00 01/22/17 04:56 01/23/17 05:10 Nasal Screen MRSA (PCR) Negative (Negative) White Blood Count 11.6 x10^3/uL (4.0-11.0) 10.4 x10^3/uL (4.0-11.0) Red Blood Count 3.36 x10^6/uL (3.50-5.40) 3.01 x10^6/uL (3.50-5.40) Hemoglobin 10.4 g/dL (12.0-15.5) 9.5 g/dL (12.0-15.5) Hematocrit 31.4 % (36.0-47.0) 27.7 % (36.0-47.0) Mean Corpuscular Volume 94 fL (79-100) 92 fL (79-100) Mean Corpuscular Hemoglobin 31 pg (25-35) 32 pg (25-35) Mean Corpuscular Hemoglobin Concent 33 g/dL (31-37) 34 g/dL (31-37) Red Cell Distribution Width 16.3 % (11.5-14.5) 16.6 % (11.5-14.5) Platelet Count 195 x10^3/uL (140-400) 191 x10^3/uL (140-400) Neutrophils (%) (Auto) 92 % (31-73) 79 % (31-73) Lymphocytes (%) (Auto) 4 % (24-48) 12 % (24-48) Monocytes (%) (Auto) 4 % (0-9) 9 % (0-9) Eosinophils (%) (Auto) 0 % (0-3) 0 % (0-3) Basophils (%) (Auto) 0 % (0-3) 0 % (0-3) Neutrophils # (Auto) 10.6 x10^3uL (1.8-7.7) 8.2 x10^3uL (1.8-7.7) Lymphocytes # (Auto) 0.5 x10^3/uL (1.0-4.8) 1.2 x10^3/uL (1.0-4.8) Monocytes # (Auto) 0.4 x10^3/uL (0.0-1.1) 0.9 x10^3/uL (0.0-1.1) Eosinophils # (Auto) 0.0 x10^3/uL (0.0-0.7) 0.0 x10^3/uL (0.0-0.7) Basophils # (Auto) 0.0 x10^3/uL (0.0-0.2) 0.0 x10^3/uL (0.0-0.2) Segmented Neutrophils % 74 % (35-66) Band Neutrophils % 21 % (0-9) Lymphocytes % 3 % (24-48) Monocytes % 2 % (0-10) Platelet Estimate Adequate (ADEQUATE) Anisocytosis Slight Sodium Level 138 mmol/L (136-145) 139 mmol/L (136-145) Potassium Level 3.4 mmol/L (3.5-5.1) 3.6 mmol/L (3.5-5.1) Chloride Level 103 mmol/L (98-107) 105 mmol/L (98-107) Carbon Dioxide Level 25 mmol/L (21-32) 27 mmol/L (21-32) Anion Gap 10 (6-14) 7 (6-14) Blood Urea Nitrogen 5 mg/dL (7-20) 5 mg/dL (7-20) Creatinine 0.5 mg/dL (0.6-1.0) 0.5 mg/dL (0.6-1.0) Estimated GFR (Cockcroft-Gault) 117.0 117.0 Glucose Level 144 mg/dL (70-99) 102 mg/dL (70-99) Calcium Level 7.8 mg/dL (8.5-10.1) 8.1 mg/dL (8.5-10.1) Laboratory Tests Test 01/23/17 05:10 White Blood Count 10.4 x10^3/uL (4.0-11.0) Red Blood Count 3.01 x10^6/uL (3.50-5.40) Hemoglobin 9.5 g/dL (12.0-15.5) Hematocrit 27.7 % (36.0-47.0) Mean Corpuscular Volume 92 fL (79-100) Mean Corpuscular Hemoglobin 32 pg (25-35) Mean Corpuscular Hemoglobin Concent 34 g/dL (31-37) Red Cell Distribution Width 16.6 % (11.5-14.5) Platelet Count 191 x10^3/uL (140-400) Neutrophils (%) (Auto) 79 % (31-73) Lymphocytes (%) (Auto) 12 % (24-48) Monocytes (%) (Auto) 9 % (0-9) Eosinophils (%) (Auto) 0 % (0-3) Basophils (%) (Auto) 0 % (0-3) Neutrophils # (Auto) 8.2 x10^3uL (1.8-7.7) Lymphocytes # (Auto) 1.2 x10^3/uL (1.0-4.8) Monocytes # (Auto) 0.9 x10^3/uL (0.0-1.1) Eosinophils # (Auto) 0.0 x10^3/uL (0.0-0.7) Basophils # (Auto) 0.0 x10^3/uL (0.0-0.2) Sodium Level 139 mmol/L (136-145) Potassium Level 3.6 mmol/L (3.5-5.1) Chloride Level 105 mmol/L (98-107) Carbon Dioxide Level 27 mmol/L (21-32) Anion Gap 7 (6-14) Blood Urea Nitrogen 5 mg/dL (7-20) Creatinine 0.5 mg/dL (0.6-1.0) Estimated GFR (Cockcroft-Gault) 117.0 Glucose Level 102 mg/dL (70-99) Calcium Level 8.1 mg/dL (8.5-10.1) Medications Current Medications Fentanyl Citrate (Fentanyl 2ml Vial) 25 mcg PRN Q15MIN PRN IV PAIN GREATER THAN 3/10 Last administered on 01/21/17 10:18; Start 01/21/17 at 07:00; Stop at 06:59; Status DC Sodium Chloride 1,000 ml @ 1,000 mls/hr Q1H IV Last administered on 01/21/17 07:36; Start 01/21/17 at 06:56; Stop 01/21/17 at 07:55; Status DC Sodium Chloride (Normal Saline Flush) 10 ml QSHIFT PRN IV AFTER MEDS AND BLOOD DRAWS Last administered on 01/21/17 07:36; Start 01/21/17 at 07:00 Ondansetron HCl (Zofran) 4 mg PRN Q8HRS PRN IV NAUSEA/VOMITING Last administered on 01/21/17 20:36; Start 01/21/17 at 08:00; Stop 01/22/17 at 07:59 ; Status DC Sodium Chloride 1,000 ml @ 80 mls/hr [id number] IV Last administered on 10:05; Start 01/21/17 at 07:48; Stop 01/22/17 at 07:47; Status DC Hydromorphone HCl (Dilaudid) 0.5 mg 1X ONCE IV Last administered on 01/21/17 07:59; Start 01/21/17 at 08:00; Stop 01/21/17 at 08:01; Status DC Acetaminophen (Tylenol) 325 mg PRN Q6HRS PRN PO MILD PAIN / TEMP; Start at 09:30 Hydralazine HCl (Apresoline) 10 mg PRN Q4HRS PRN IVP ELEVATED BP, SEE COMMENTS ; Start 01/21/17 at 09:30 Ondansetron HCl (Zofran) 4 mg PRN Q8HRS PRN IV NAUSEA/VOMITING; Start 01/21/17 at 09:30 Albuterol Sulfate (Ventolin Neb Soln) 2.5 mg PRN Q4HRS PRN NEB SHORTNESS OF BREATH; Start 01/21/17 at 09:30 Fentanyl Citrate (Fentanyl 2ml Vial) 25 mcg PRN Q6HRS PRN IV PAIN; Start at 10:00 Ropivacaine 53.3 ml/Epinephrine HCl 0.6 mg/Sodium Chloride 100 ml @ 100 mls/hr 1X PERIOP ONCE INT ART Last administered on 01/21/17 13:51; Start 01/21/17 at 12:30; Stop 01/21/17 at 13:29; Status DC Ondansetron HCl (Zofran) 4 mg PRN Q6HRS PRN IV NAUSEA/VOMITING; Start 01/21/17 at 12:15; Stop 01/22/17 at 12:14; Status DC Fentanyl Citrate (Fentanyl 2ml Vial) 25 mcg PRN Q5MIN PRN IV MILD PAIN Last administered on 01/21/17 15:45; Start 01/21/17 at 12:15; Stop 01/22/17 at 12:14 ; Status DC Fentanyl Citrate (Fentanyl 2ml Vial) 50 mcg PRN Q5MIN PRN IV MODERATE PAIN; Start 01/21/17 at 12:15; Stop 01/22/17 at 12:14; Status DC Morphine Sulfate 1 mg PRN Q10MIN PRN IV SEVERE PAIN; Start 01/21/17 at 12:15; Stop 01/22/17 at 12:14; Status UNV Ringer's Solution 1,000 ml @ 0 mls/hr Q0M IV Last administered on 01/21/17 12 :49; Start 01/21/17 at 12:08; Stop 01/22/17 at 00:07; Status DC Lidocaine HCl 2 ml PRN 1X PRN ID PRIOR TO IV START; Start 01/21/17 at 12:15; Stop 01/22/17 at 12:14; Status DC Hydromorphone HCl (Dilaudid) 0.5 mg PRN Q10MIN PRN IV SEV PAIN, Second choice; Start 01/21/17 at 12:15; Stop 01/22/17 at 12:14; Status DC Prochlorperazine Edisylate (Compazine) 5 mg PACU PRN PRN IV NAUSEA, MRX1 Last administered on 01/21/17t 14:59; Start 01/21/17 at 12:15; Stop 01/22/17 at 12:14 ; Status DC Fentanyl Citrate (Fentanyl 2ml Vial) 100 mcg STK-MED ONCE .ROUTE ; Start at 12:55; Stop 01/21/17 at 12:56; Status DC Sevoflurane (Ultane) 30 ml STK-MED ONCE IH ; Start 01/21/17 at 12:56; Stop 01/21 at 12:57; Status DC Dexamethasone Sodium Phosphate (Decadron) 20 mg STK-MED ONCE .ROUTE ; Start at 12:56; Stop 01/21/17 at 12:57; Status DC Lidocaine HCl (Lidocaine Pf 2% Vial) 5 ml STK-MED ONCE .ROUTE ; Start 01/21/17 at 12:56; Stop 01/21/17 at 12:57; Status DC Propofol 20 ml @ As Directed STK-MED ONCE IV ; Start 01/21/17 at 12:56; Stop at 12:57; Status DC Phenylephrine HCl (Barrera-Synephrine Inj) 10 mg STK-MED ONCE .ROUTE ; Start at 12:56; Stop 01/21/17 at 12:57; Status DC Ondansetron HCl (Zofran) 4 mg STK-MED ONCE .ROUTE ; Start 01/21/17 at 12:56; Stop 01/21/17 at 12:57; Status DC Cefazolin Sodium/ Dextrose 50 ml @ 100 mls/hr 1X ONCE IV ; Start 01/21/17 at 13:00; Stop 01/21/17 at 13:29; Status UNV Cefazolin Sodium/ Dextrose 50 ml @ 100 mls/hr 1X ONCE IV Last administered on 01/21/17t 13:37; Start 01/21/17 at 14:00; Stop 01/21/17 at 14:29; Status DC Famotidine (Pepcid) 20 mg STK-MED ONCE .ROUTE ; Start 01/21/17 at 13:01; Stop at 13:02; Status DC Acetaminophen/ Hydrocodone Bitart (Lortab 7.5/325) 1 tab PRN Q3HRS PRN PO PAIN Last administered on 01/22/17 15:05; Start 01/21/17 at 14:45 Acetaminophen/ Hydrocodone Bitart (Lortab 10/325) 1 tab PRN Q3HRS PRN PO PAIN; Start 01/21/17 at 14:45 Tramadol HCl (Ultram) 50 mg PRN QID PRN PO PAIN Last administered on 01/23/17 08:19; Start 01/21/17 at 14:45 Oxycodone/ Acetaminophen (Percocet 5/325) 1 tab PRN Q3HRS PRN PO PAIN; Start at 14:45 Oxycodone/ Acetaminophen (Percocet 7.5/ 325) 1 tab PRN Q3HRS PRN PO PAIN; Start 01/21/17 at 14:45 Tramadol HCl (Ultram) 100 mg PRN Q3HRS PRN PO PAIN; Start 01/21/17 at 14:45 Morphine Sulfate 2 mg PRN Q1HR PRN IV PAIN; Start 01/21/17 at 14:45 Fentanyl Citrate (Fentanyl 2ml Vial) 25 mcg PRN Q1HR PRN IV PAIN; Start at 14:45 Diphenhydramine HCl (Benadryl) 25 mg PRN Q6HRS PRN IV ITCHING; Start 01/21/17 at 14:45 Multivitamins (Thera M Plus) 1 tab DAILY PO Last administered on 01/23/17 08: 09; Start 01/22/17 at 09:00 Senna/Docusate Sodium (Senna Plus) 1 tab DAILY PO Last administered on 08:10; Start 01/22/17 at 09:00 Ferrous Sulfate (Feosol) 325 mg BIDWMEALS PO Last administered on 01/23/17 08: 10; Start 01/21/17 at 17:00 Dextrose/Sodium Chloride 1,000 ml @ 100 mls/hr Q10H IV Last administered on 06:31; Start 01/21/17 at 14:31 Prochlorperazine Maleate (Compazine) 10 mg PRN Q4HRS PRN PO NAUSEA/VOMITING; Start 01/21/17 at 14:45 Metoclopramide HCl (Reglan) 10 mg PRN Q4HRS PRN IV NAUSEA/VOMITING; Start 01/21 at 14:45 Magnesium Hydroxide (Milk Of Magnesia) 2,400 mg 1X PRN PRN PO CONSTIPATION; Start 01/22/17 at 06:00; Stop 01/23/17 at 05:59; Status DC Bisacodyl (Dulcolax Supp) 10 mg 1X PRN PRN ID CONSTIPATION; Start 01/22/17 at 16:00; Stop 01/23/17 at 15:59 Acetaminophen (Tylenol) 650 mg PRN Q4HRS PRN PO MILD PAIN / TEMP Last administered on 01/22/17 22:19; Start 01/21/17 at 14:45 Zolpidem Tartrate (Ambien) 5 mg PRN QHS PRN PO INSOMNIA, MAY REPEAT IN 1HR; Start 01/21/17 at 14:45 Calcium Carbonate/ Glycine (Tums) 500 mg PRN QID PRN PO INDIGESTION Last administered on 01/23/17 08:10; Start 01/21/17 at 14:45 Morphine Sulfate 4 mg PRN Q1HR PRN IV PAIN; Start 01/21/17 at 14:45 Morphine Sulfate 6 mg PRN Q1HR PRN IV PAIN; Start 01/21/17 at 14:45 Morphine Sulfate 8 mg PRN Q1HR PRN IV PAIN; Start 01/21/17 at 14:45 Sodium Chloride (Normal Saline Flush) 10 ml QSHIFT PRN IV AFTER MEDS AND BLOOD DRAWS; Start 01/21/17 at 14:45 Fentanyl Citrate (Fentanyl 2ml Vial) 50 mcg PRN Q1HR PRN IV PAIN; Start at 14:45 Prochlorperazine Edisylate (Compazine) 10 mg PRN Q4HRS PRN IV NAUSEA/VOMITING; Start 01/21/17 at 14:45 Dextrose (Dextrose 50%-Water Syringe) 12.5 gm PRN Q15MIN PRN IV SEE COMMENTS; Start 01/21/17 at 14:45 Cefazolin Sodium 1 gm/Sodium Chloride 50 ml @ 100 mls/hr Q6H IV ; Start at 16:00; Stop 01/21/17 at 16:41; Status DC Apixaban (Eliquis) 2.5 mg BID PO Last administered on 01/23/17 08:09; Start at 21:00 Diltiazem HCl (Cardizem Cd) 300 mg DAILYWSUP PO Last administered on 01/22/17 17:39; Start 01/21/17 at 17:00 Levothyroxine Sodium (Synthroid) 88 mcg DAILY06 PO Last administered on 06:00; Start 01/22/17 at 06:00 Potassium Chloride (Klor-Con) 10 meq TIDWMEALS PO Last administered on 08:09; Start 01/22/17 at 08:00 Pantoprazole Sodium (Protonix) 40 mg DAILYAC PO Last administered on 01/23/17 08:10; Start 01/22/17 at 07:30 Zolpidem Tartrate (Ambien) 5 mg QHS PO Last administered on 01/22/17 22:19; Start 01/21/17 at 21:00 Sodium Chloride 1,000 ml @ 75 mls/hr 1X ONCE IV Last administered on 17:40; Start 01/21/17 at 15:45; Stop 01/22/17 at 05:04; Status DC Cefazolin Sodium 1 gm/Sodium Chloride 50 ml @ 100 mls/hr Q6H IV Last administered on 01/22/17 08:00; Start 01/21/17 at 20:00; Stop 01/22/17 at 08:29 ; Status DC Pantoprazole Sodium (Protonix) 40 mg 1X ONCE PO Last administered on 17:38; Start 01/21/17 at 18:00; Stop 01/21/17 at 18:01; Status DC Active Scripts Active Diltiazem 24HR Cd (Diltiazem Hcl) 300 Mg Cap.er.24h 300 Mg PO DAILYWSUP sig: one p.o. daily with evening meal Eliquis (Apixaban) 2.5 Mg Tablet 2.5 Mg PO BID Reported Zolpidem Tartrate 10 Mg Tablet 0.5 Tab PO QHS Omeprazole 40 Mg Capsule.dr 1 Cap PO DAILY Levothyroxine Sodium 88 Mcg Tablet Unknown Dose PO DAILY Potassium Citrate 10 Meq Tablet.er 1 Tab PO TID Vitals/I & O Vital Sign - Last 24 Hours 7/22/17 01/22/17 01/22/17 01/22/17 11:00 15:00 15:05 15:07 Temp 97.7 97.9 97.7 97.9 Pulse 68 73 Resp 20 20 B/P (MAP) 112/72 (85) 140/47 (78) Pulse Ox 98 96 O2 Delivery Room Air Room Air Room Air Nasal Cannula O2 Flow Rate 3.0 01/22/17 01/22/17 01/22/17 01/22/17 17:23 17:39 19:00 20:00 Temp 98.1 98.1 Pulse 73 79 Resp 18 B/P (MAP) 140/47 151/66 (94) Pulse Ox 97 98 O2 Delivery Nasal Cannula Nasal Cannula Nasal Cannula O2 Flow Rate 3.0 4.0 3.0 01/22/17 01/23/17 01/23/17 01/23/17 23:00 03:00 07:00 07:45 Temp 98.1 97.5 98.7 98.1 97.5 98.7 Pulse 90 76 92 Resp 18 18 18 B/P (MAP) 111/57 (75) 119/65 (83) 122/65 (84) Pulse Ox 97 98 96 O2 Delivery Nasal Cannula Nasal Cannula Room Air Nasal Cannula O2 Flow Rate 4.0 4.0 3.0 01/23/17 08:19 O2 Delivery Nasal Cannula O2 Flow Rate 3.0 Intake and Output 01/22/17 01/22/17 01/23/17 15:00 23:00 07:00 Intake Total 1680 ml 200 ml Output Total 1601 ml Balance 79 ml 200 ml CLAUDIO GONZALEZ MD Jan 23, 2017 10:03
[2017-01-23 11:00] VITALS: BP 150/51
[2017-01-23] MEDS ORDERED: PHENOL ORAL SPRAY 177ML BOTTLE. PO PRN (13:00)
[2017-01-23] MEDS: BENZOCAINE/MENTHOL LOZENGE. PO PRN ×2 (13:13→15:52)
[2017-01-23] MEDS: oxyCODONE/APAP 5/325 1 TAB TABLET PO PRN ×3 (13:14→18:38)
--- NOTE | 2017-01-23 13:39 | PDOC ---
PROGRESS NOTES Subjective Subjective Doing well. Encouraged taking Percocet to help with pain so she can get up and walk with therapy. Objective Vital Signs Vital Signs Date Time Temp Pulse Resp B/P (MAP) Pulse Ox O2 Delivery O2 Flow Rate FiO2 01/23/17 13:14 96 Room Air 01/23/17 11:31 5.0 01/23/17 11:00 98.8 88 18 150/51 (84) 98.8 Physical Exam Sitting up in bed. Right hip dressing dry and intact. Calf soft and NT with negative Clifford's sign. Good dorsiflexion and plantarflexion with no sign of neurovascular injury. NVI. Labs Laboratory Tests Test 01/22/17 04:56 01/23/17 05:10 White Blood Count 11.6 x10^3/uL (4.0-11.0) 10.4 x10^3/uL (4.0-11.0) Red Blood Count 3.36 x10^6/uL (3.50-5.40) 3.01 x10^6/uL (3.50-5.40) Hemoglobin 10.4 g/dL (12.0-15.5) 9.5 g/dL (12.0-15.5) Hematocrit 31.4 % (36.0-47.0) 27.7 % (36.0-47.0) Mean Corpuscular Volume 94 fL (79-100) 92 fL (79-100) Mean Corpuscular Hemoglobin 31 pg (25-35) 32 pg (25-35) Mean Corpuscular Hemoglobin Concent 33 g/dL (31-37) 34 g/dL (31-37) Red Cell Distribution Width 16.3 % (11.5-14.5) 16.6 % (11.5-14.5) Platelet Count 195 x10^3/uL (140-400) 191 x10^3/uL (140-400) Neutrophils (%) (Auto) 92 % (31-73) 79 % (31-73) Lymphocytes (%) (Auto) 4 % (24-48) 12 % (24-48) Monocytes (%) (Auto) 4 % (0-9) 9 % (0-9) Eosinophils (%) (Auto) 0 % (0-3) 0 % (0-3) Basophils (%) (Auto) 0 % (0-3) 0 % (0-3) Neutrophils # (Auto) 10.6 x10^3uL (1.8-7.7) 8.2 x10^3uL (1.8-7.7) Lymphocytes # (Auto) 0.5 x10^3/uL (1.0-4.8) 1.2 x10^3/uL (1.0-4.8) Monocytes # (Auto) 0.4 x10^3/uL (0.0-1.1) 0.9 x10^3/uL (0.0-1.1) Eosinophils # (Auto) 0.0 x10^3/uL (0.0-0.7) 0.0 x10^3/uL (0.0-0.7) Basophils # (Auto) 0.0 x10^3/uL (0.0-0.2) 0.0 x10^3/uL (0.0-0.2) Segmented Neutrophils % 74 % (35-66) Band Neutrophils % 21 % (0-9) Lymphocytes % 3 % (24-48) Monocytes % 2 % (0-10) Platelet Estimate Adequate (ADEQUATE) Anisocytosis Slight Sodium Level 138 mmol/L (136-145) 139 mmol/L (136-145) Potassium Level 3.4 mmol/L (3.5-5.1) 3.6 mmol/L (3.5-5.1) Chloride Level 103 mmol/L (98-107) 105 mmol/L (98-107) Carbon Dioxide Level 25 mmol/L (21-32) 27 mmol/L (21-32) Anion Gap 10 (6-14) 7 (6-14) Blood Urea Nitrogen 5 mg/dL (7-20) 5 mg/dL (7-20) Creatinine 0.5 mg/dL (0.6-1.0) 0.5 mg/dL (0.6-1.0) Estimated GFR (Cockcroft-Gault) 117.0 117.0 Glucose Level 144 mg/dL (70-99) 102 mg/dL (70-99) Calcium Level 7.8 mg/dL (8.5-10.1) 8.1 mg/dL (8.5-10.1) Laboratory Tests Test 01/23/17 05:10 White Blood Count 10.4 x10^3/uL (4.0-11.0) Red Blood Count 3.01 x10^6/uL (3.50-5.40) Hemoglobin 9.5 g/dL (12.0-15.5) Hematocrit 27.7 % (36.0-47.0) Mean Corpuscular Volume 92 fL (79-100) Mean Corpuscular Hemoglobin 32 pg (25-35) Mean Corpuscular Hemoglobin Concent 34 g/dL (31-37) Red Cell Distribution Width 16.6 % (11.5-14.5) Platelet Count 191 x10^3/uL (140-400) Neutrophils (%) (Auto) 79 % (31-73) Lymphocytes (%) (Auto) 12 % (24-48) Monocytes (%) (Auto) 9 % (0-9) Eosinophils (%) (Auto) 0 % (0-3) Basophils (%) (Auto) 0 % (0-3) Neutrophils # (Auto) 8.2 x10^3uL (1.8-7.7) Lymphocytes # (Auto) 1.2 x10^3/uL (1.0-4.8) Monocytes # (Auto) 0.9 x10^3/uL (0.0-1.1) Eosinophils # (Auto) 0.0 x10^3/uL (0.0-0.7) Basophils # (Auto) 0.0 x10^3/uL (0.0-0.2) Sodium Level 139 mmol/L (136-145) Potassium Level 3.6 mmol/L (3.5-5.1) Chloride Level 105 mmol/L (98-107) Carbon Dioxide Level 27 mmol/L (21-32) Anion Gap 7 (6-14) Blood Urea Nitrogen 5 mg/dL (7-20) Creatinine 0.5 mg/dL (0.6-1.0) Estimated GFR (Cockcroft-Gault) 117.0 Glucose Level 102 mg/dL (70-99) Calcium Level 8.1 mg/dL (8.5-10.1) Assessment Assessment POD #2 right hip IM nail Problems: Plan Plan of Care Continue POC including DVT ppx and therapy. Pain control. WBAT with walker. From ortho standpoint, may be discharge to [facility] tomorrow. Followup in 10-14 days. MAXIMILIAN JAMES Jan 23, 2017 13:39
[2017-01-23 15:00] VITALS: BP 127/68
[2017-01-23] MEDS ORDERED: DOCUSATE SODIUM 100 MG CAPSULE. PO PRN (15:30)
[2017-01-23 19:00] VITALS: BP 153/63
[2017-01-23] MEDS: ZOLPIDEM 5 MG TABLET. PO SCH (21:00)
[2017-01-23 23:00] VITALS: BP 164/81
[2017-01-24 03:00] VITALS: BP 152/72
[2017-01-24] MEDS: BENZOCAINE/MENTHOL LOZENGE. PO PRN (03:50)
--- NOTE | 2017-01-24 05:43 | EKG ---
[facility] [address] [place] [address] Test Date: 2017-01-24 Test Time: 04:33:32 Pat Name: BILL CRUZ Department: Room: 416 Gender: F [employer]: MIGUEL : 1930 Requested By: CLAUDIO GONZALEZ Order Number: [id number] Reading MD: Measurements Intervals [place] Rate: 105 P: [place]: QRS: -13 QRSD: 80 T: 57 QT: 352 QTc: 469 Interpretive Statements IRREGULAR RHYTHM, NO P-WAVE FOUND VENTRICULAR PREMATURE COMPLEX(ES) LEFTWARD AXIS ABNORMAL ECG RI6.01 Unconfirmed report Compared to ECG 10/02/2016 22:35:01 Atrial fibrillation no longer present
[2017-01-24] MEDS: traMADol 50 MG TABLET PO PRN (06:07)
[2017-01-24 06:37] LABS: BASO % 0 % (0-3); EOS % 1 % (0-3); HEMATOCRIT 29.9 % (36.0-47.0); HEMOGLOBIN 10.2 g/dL (12.0-15.5); LYMPH # 1.1 x10^3/uL (1.0-4.8); LYMPH % 11 % (24-48); MEAN CORPUSCULAR HEMOGLOBIN 31 pg (25-35); MEAN CORPUSCULAR HGB CONC 34 g/dL (31-37); MEAN CORPUSCULAR VOLUME 92 fL (79-100); MONO % 7 % (0-9); NEUT % 81 % (31-73); PLATELET COUNT 209 x10^3/uL (140-400); RED BLOOD COUNT 3.25 x10^6/uL (3.50-5.40); RED CELL DISTRIBUTION WIDTH 16.7 % (11.5-14.5); WHITE BLOOD COUNT 9.7 x10^3/uL (4.0-11.0)
[2017-01-24 06:49] LABS: CALCIUM 7.9 mg/dL (8.5-10.1); CREATININE 0.4 mg/dL (0.6-1.0); GFR 151.3; POTASSIUM 3.4 mmol/L (3.5-5.1)
[2017-01-24] MEDS: LEVOTHYROXINE 88 MCG TABLET PO SCH (06:52)
[2017-01-24 07:03] LABS: CKMB MASS 2.1 ng/mL (0.0-3.6)
[2017-01-24 07:45] VITALS: BP 151/76
[2017-01-24] MEDS: PANTOPRAZOLE 40 MG TABLET.DR. PO SCH (10:11)
[2017-01-24] MEDS: SENNOSIDES/DOCUSATE 8.6/50MG TABLET. PO SCH (10:12)
[2017-01-24] MEDS: APIXABAN 2.5 MG TABLET. PO SCH ×2 (10:12→21:26)
[2017-01-24] MEDS: FERROUS SULFATE 325 MG TABLET. PO SCH ×2 (10:12→17:04)
[2017-01-24] MEDS: MULTIVITAMIN with MINERAL TABLET. PO SCH (10:12)
[2017-01-24] MEDS: POTASSIUM CHLORIDE 10 MEQ TABLET.ER. PO SCH ×3 (10:12→17:14)
[2017-01-24 10:30] VITALS: BP 138/56
[2017-01-24] MEDS ORDERED: POTASSIUM CHLORIDE 20 MEQ TABLET.ER. PO ONE (12:15)
--- NOTE | 2017-01-24 15:04 | PDOC ---
PROGRESS NOTES Chief Complaint Chief Complaint Chief complaint: Fall Assessment and plan Acute closed right intertrochanteric hip fracture status post intramedullary implant. Chronic A. fib rate controlled Hypertension Hypothyroidism GERD Pain due to the above plan fu with ortho, cont PTOT pain control on meds for afib last night got [employer], with sob, better with albuterol prn likely 2/2 fluid overloaded. IVF DCED, will check cxr, give lasix 40mg po x1 .tele. waiting for SW for rehab [facility] History of Present Illness History of Present Illness rapid response for sob, rapid afib on night of 01/23 pt feels good now Vitals Vitals Vital Signs Date Time Temp Pulse Resp B/P (MAP) Pulse Ox O2 Delivery O2 Flow Rate FiO2 01/24/17 10:30 97.5 93 20 138/56 (83) 94 Nasal Cannula 2.0 97.5 Physical Exam General: Alert, Cooperative Heart: Regular rate Lungs: Crackles (bl basilar mild) Abdomen: Soft Extremities: No clubbing, No cyanosis Skin: No rashes Labs LABS Laboratory Tests Test 01/24/17 06:24 White Blood Count 9.7 x10^3/uL (4.0-11.0) Red Blood Count 3.25 x10^6/uL (3.50-5.40) Hemoglobin 10.2 g/dL (12.0-15.5) Hematocrit 29.9 % (36.0-47.0) Mean Corpuscular Volume 92 fL (79-100) Mean Corpuscular Hemoglobin 31 pg (25-35) Mean Corpuscular Hemoglobin Concent 34 g/dL (31-37) Red Cell Distribution Width 16.7 % (11.5-14.5) Platelet Count 209 x10^3/uL (140-400) Neutrophils (%) (Auto) 81 % (31-73) Lymphocytes (%) (Auto) 11 % (24-48) Monocytes (%) (Auto) 7 % (0-9) Eosinophils (%) (Auto) 1 % (0-3) Basophils (%) (Auto) 0 % (0-3) Neutrophils # (Auto) 7.8 x10^3uL (1.8-7.7) Lymphocytes # (Auto) 1.1 x10^3/uL (1.0-4.8) Monocytes # (Auto) 0.7 x10^3/uL (0.0-1.1) Eosinophils # (Auto) 0.1 x10^3/uL (0.0-0.7) Basophils # (Auto) 0.0 x10^3/uL (0.0-0.2) Sodium Level 134 mmol/L (136-145) Potassium Level 3.4 mmol/L (3.5-5.1) Chloride Level 98 mmol/L (98-107) Carbon Dioxide Level 30 mmol/L (21-32) Anion Gap 6 (6-14) Blood Urea Nitrogen 3 mg/dL (7-20) Creatinine 0.4 mg/dL (0.6-1.0) Estimated GFR (Cockcroft-Gault) 151.3 Glucose Level 119 mg/dL (70-99) Calcium Level 7.9 mg/dL (8.5-10.1) Creatine Kinase 207 U/L (26-192) Creatine Kinase MB (Mass) 2.1 ng/mL (0.0-3.6) Creatine Kinase MB Relative Index 1.0 % (0-4) Troponin I Quantitative < 0.017 ng/mL (0.000-0.055) Review of Systems Review of Systems no fever, chills, sob or chest pain Assessment and Plan Assessmemt and Plan Problems Medical Problems: (1) Hip fracture, right Status: Acute Problems: Comment Review of Relevant I have reviewed the following items nikki (where applicable) has been applied. Labs Laboratory Tests Test 01/23/17 05:10 01/24/17 06:24 White Blood Count 10.4 x10^3/uL (4.0-11.0) 9.7 x10^3/uL (4.0-11.0) Red Blood Count 3.01 x10^6/uL (3.50-5.40) 3.25 x10^6/uL (3.50-5.40) Hemoglobin 9.5 g/dL (12.0-15.5) 10.2 g/dL (12.0-15.5) Hematocrit 27.7 % (36.0-47.0) 29.9 % (36.0-47.0) Mean Corpuscular Volume 92 fL (79-100) 92 fL (79-100) Mean Corpuscular Hemoglobin 32 pg (25-35) 31 pg (25-35) Mean Corpuscular Hemoglobin Concent 34 g/dL (31-37) 34 g/dL (31-37) Red Cell Distribution Width 16.6 % (11.5-14.5) 16.7 % (11.5-14.5) Platelet Count 191 x10^3/uL (140-400) 209 x10^3/uL (140-400) Neutrophils (%) (Auto) 79 % (31-73) 81 % (31-73) Lymphocytes (%) (Auto) 12 % (24-48) 11 % (24-48) Monocytes (%) (Auto) 9 % (0-9) 7 % (0-9) Eosinophils (%) (Auto) 0 % (0-3) 1 % (0-3) Basophils (%) (Auto) 0 % (0-3) 0 % (0-3) Neutrophils # (Auto) 8.2 x10^3uL (1.8-7.7) 7.8 x10^3uL (1.8-7.7) Lymphocytes # (Auto) 1.2 x10^3/uL (1.0-4.8) 1.1 x10^3/uL (1.0-4.8) Monocytes # (Auto) 0.9 x10^3/uL (0.0-1.1) 0.7 x10^3/uL (0.0-1.1) Eosinophils # (Auto) 0.0 x10^3/uL (0.0-0.7) 0.1 x10^3/uL (0.0-0.7) Basophils # (Auto) 0.0 x10^3/uL (0.0-0.2) 0.0 x10^3/uL (0.0-0.2) Sodium Level 139 mmol/L (136-145) 134 mmol/L (136-145) Potassium Level 3.6 mmol/L (3.5-5.1) 3.4 mmol/L (3.5-5.1) Chloride Level 105 mmol/L (98-107) 98 mmol/L (98-107) Carbon Dioxide Level 27 mmol/L (21-32) 30 mmol/L (21-32) Anion Gap 7 (6-14) 6 (6-14) Blood Urea Nitrogen 5 mg/dL (7-20) 3 mg/dL (7-20) Creatinine 0.5 mg/dL (0.6-1.0) 0.4 mg/dL (0.6-1.0) Estimated GFR (Cockcroft-Gault) 117.0 151.3 Glucose Level 102 mg/dL (70-99) 119 mg/dL (70-99) Calcium Level 8.1 mg/dL (8.5-10.1) 7.9 mg/dL (8.5-10.1) Creatine Kinase 207 U/L (26-192) Creatine Kinase MB (Mass) 2.1 ng/mL (0.0-3.6) Creatine Kinase MB Relative Index 1.0 % (0-4) Troponin I Quantitative < 0.017 ng/mL (0.000-0.055) Laboratory Tests Test 01/24/17 06:24 White Blood Count 9.7 x10^3/uL (4.0-11.0) Red Blood Count 3.25 x10^6/uL (3.50-5.40) Hemoglobin 10.2 g/dL (12.0-15.5) Hematocrit 29.9 % (36.0-47.0) Mean Corpuscular Volume 92 fL (79-100) Mean Corpuscular Hemoglobin 31 pg (25-35) Mean Corpuscular Hemoglobin Concent 34 g/dL (31-37) Red Cell Distribution Width 16.7 % (11.5-14.5) Platelet Count 209 x10^3/uL (140-400) Neutrophils (%) (Auto) 81 % (31-73) Lymphocytes (%) (Auto) 11 % (24-48) Monocytes (%) (Auto) 7 % (0-9) Eosinophils (%) (Auto) 1 % (0-3) Basophils (%) (Auto) 0 % (0-3) Neutrophils # (Auto) 7.8 x10^3uL (1.8-7.7) Lymphocytes # (Auto) 1.1 x10^3/uL (1.0-4.8) Monocytes # (Auto) 0.7 x10^3/uL (0.0-1.1) Eosinophils # (Auto) 0.1 x10^3/uL (0.0-0.7) Basophils # (Auto) 0.0 x10^3/uL (0.0-0.2) Sodium Level 134 mmol/L (136-145) Potassium Level 3.4 mmol/L (3.5-5.1) Chloride Level 98 mmol/L (98-107) Carbon Dioxide Level 30 mmol/L (21-32) Anion Gap 6 (6-14) Blood Urea Nitrogen 3 mg/dL (7-20) Creatinine 0.4 mg/dL (0.6-1.0) Estimated GFR (Cockcroft-Gault) 151.3 Glucose Level 119 mg/dL (70-99) Calcium Level 7.9 mg/dL (8.5-10.1) Creatine Kinase 207 U/L (26-192) Creatine Kinase MB (Mass) 2.1 ng/mL (0.0-3.6) Creatine Kinase MB Relative Index 1.0 % (0-4) Troponin I Quantitative < 0.017 ng/mL (0.000-0.055) Medications Current Medications Fentanyl Citrate (Fentanyl 2ml Vial) 25 mcg PRN Q15MIN PRN IV PAIN GREATER THAN 3/10 Last administered on 01/21/17 10:18; Start 01/21/17 at 07:00; Stop at 06:59; Status DC Sodium Chloride 1,000 ml @ 1,000 mls/hr Q1H IV Last administered on 01/21/17 07:36; Start 01/21/17 at 06:56; Stop 01/21/17 at 07:55; Status DC Sodium Chloride (Normal Saline Flush) 10 ml QSHIFT PRN IV AFTER MEDS AND BLOOD DRAWS Last administered on 01/21/17 07:36; Start 01/21/17 at 07:00 Ondansetron HCl (Zofran) 4 mg PRN Q8HRS PRN IV NAUSEA/VOMITING Last administered on 01/21/17 20:36; Start 01/21/17 at 08:00; Stop 01/22/17 at 07:59 ; Status DC Sodium Chloride 1,000 ml @ 80 mls/hr [id number] IV Last administered on 10:05; Start 01/21/17 at 07:48; Stop 01/22/17 at 07:47; Status DC Hydromorphone HCl (Dilaudid) 0.5 mg 1X ONCE IV Last administered on 01/21/17 07:59; Start 01/21/17 at 08:00; Stop 01/21/17 at 08:01; Status DC Acetaminophen (Tylenol) 325 mg PRN Q6HRS PRN PO MILD PAIN / TEMP Last administered on 01/23/17 13:14; Start 01/21/17 at 09:30 Hydralazine HCl (Apresoline) 10 mg PRN Q4HRS PRN IVP ELEVATED BP, SEE COMMENTS ; Start 01/21/17 at 09:30 Ondansetron HCl (Zofran) 4 mg PRN Q8HRS PRN IV NAUSEA/VOMITING Last administered on 01/24/17 06:07; Start 01/21/17 at 09:30 Albuterol Sulfate (Ventolin Neb Soln) 2.5 mg PRN Q4HRS PRN NEB SHORTNESS OF BREATH Last administered on 01/24/17 06:09; Start 01/21/17 at 09:30 Fentanyl Citrate (Fentanyl 2ml Vial) 25 mcg PRN Q6HRS PRN IV PAIN Last administered on 01/23/17 11:31; Start 01/21/17 at 10:00 Ropivacaine 53.3 ml/Epinephrine HCl 0.6 mg/Sodium Chloride 100 ml @ 100 mls/hr 1X PERIOP ONCE INT ART Last administered on 01/21/17 13:51; Start 01/21/17 at 12:30; Stop 01/21/17 at 13:29; Status DC Ondansetron HCl (Zofran) 4 mg PRN Q6HRS PRN IV NAUSEA/VOMITING; Start 01/21/17 at 12:15; Stop 01/22/17 at 12:14; Status DC Fentanyl Citrate (Fentanyl 2ml Vial) 25 mcg PRN Q5MIN PRN IV MILD PAIN Last administered on 01/21/17 15:45; Start 01/21/17 at 12:15; Stop 01/22/17 at 12:14 ; Status DC Fentanyl Citrate (Fentanyl 2ml Vial) 50 mcg PRN Q5MIN PRN IV MODERATE PAIN; Start 01/21/17 at 12:15; Stop 01/22/17 at 12:14; Status DC Morphine Sulfate 1 mg PRN Q10MIN PRN IV SEVERE PAIN; Start 01/21/17 at 12:15; Stop 01/22/17 at 12:14; Status UNV Ringer's Solution 1,000 ml @ 0 mls/hr Q0M IV Last administered on 01/21/17t 12 :49; Start 01/21/17 at 12:08; Stop 01/22/17 at 00:07; Status DC Lidocaine HCl 2 ml PRN 1X PRN ID PRIOR TO IV START; Start 01/21/17 at 12:15; Stop 01/22/17 at 12:14; Status DC Hydromorphone HCl (Dilaudid) 0.5 mg PRN Q10MIN PRN IV SEV PAIN, Second choice; Start 01/21/17 at 12:15; Stop 01/22/17 at 12:14; Status DC Prochlorperazine Edisylate (Compazine) 5 mg PACU PRN PRN IV NAUSEA, MRX1 Last administered on 01/21/17t 14:59; Start 01/21/17 at 12:15; Stop 01/22/17 at 12:14 ; Status DC Fentanyl Citrate (Fentanyl 2ml Vial) 100 mcg STK-MED ONCE .ROUTE ; Start at 12:55; Stop 01/21/17 at 12:56; Status DC Sevoflurane (Ultane) 30 ml STK-MED ONCE IH ; Start 01/21/17 at 12:56; Stop 01/21 at 12:57; Status DC Dexamethasone Sodium Phosphate (Decadron) 20 mg STK-MED ONCE .ROUTE ; Start at 12:56; Stop 01/21/17 at 12:57; Status DC Lidocaine HCl (Lidocaine Pf 2% Vial) 5 ml STK-MED ONCE .ROUTE ; Start 01/21/17 at 12:56; Stop 01/21/17 at 12:57; Status DC Propofol 20 ml @ As Directed STK-MED ONCE IV ; Start 01/21/17 at 12:56; Stop at 12:57; Status DC Phenylephrine HCl (Barrera-Synephrine Inj) 10 mg STK-MED ONCE .ROUTE ; Start at 12:56; Stop 01/21/17 at 12:57; Status DC Ondansetron HCl (Zofran) 4 mg STK-MED ONCE .ROUTE ; Start 01/21/17 at 12:56; Stop 01/21/17 at 12:57; Status DC Cefazolin Sodium/ Dextrose 50 ml @ 100 mls/hr 1X ONCE IV ; Start 01/21/17 at 13:00; Stop 01/21/17 at 13:29; Status UNV Cefazolin Sodium/ Dextrose 50 ml @ 100 mls/hr 1X ONCE IV Last administered on 01/21/17t 13:37; Start 01/21/17 at 14:00; Stop 01/21/17 at 14:29; Status DC Famotidine (Pepcid) 20 mg STK-MED ONCE .ROUTE ; Start 01/21/17 at 13:01; Stop at 13:02; Status DC Acetaminophen/ Hydrocodone Bitart (Lortab 7.5/325) 1 tab PRN Q3HRS PRN PO PAIN Last administered on 01/22/17 15:05; Start 01/21/17 at 14:45 Acetaminophen/ Hydrocodone Bitart (Lortab 10/325) 1 tab PRN Q3HRS PRN PO PAIN; Start 01/21/17 at 14:45 Tramadol HCl (Ultram) 50 mg PRN QID PRN PO PAIN Last administered on 01/24/17 06:07; Start 01/21/17 at 14:45 Oxycodone/ Acetaminophen (Percocet 5/325) 1 tab PRN Q3HRS PRN PO PAIN Last administered on 01/23/17 18:38; Start 01/21/17 at 14:45 Oxycodone/ Acetaminophen (Percocet 7.5/ 325) 1 tab PRN Q3HRS PRN PO PAIN; Start 01/21/17 at 14:45 Tramadol HCl (Ultram) 100 mg PRN Q3HRS PRN PO PAIN; Start 01/21/17 at 14:45 Morphine Sulfate 2 mg PRN Q1HR PRN IV PAIN; Start 01/21/17 at 14:45 Fentanyl Citrate (Fentanyl 2ml Vial) 25 mcg PRN Q1HR PRN IV PAIN; Start at 14:45 Diphenhydramine HCl (Benadryl) 25 mg PRN Q6HRS PRN IV ITCHING; Start 01/21/17 at 14:45 Multivitamins (Thera M Plus) 1 tab DAILY PO Last administered on 01/24/17 10: 12; Start 01/22/17 at 09:00 Senna/Docusate Sodium (Senna Plus) 1 tab DAILY PO Last administered on 10:12; Start 01/22/17 at 09:00 Ferrous Sulfate (Feosol) 325 mg BIDWMEALS PO Last administered on 01/24/17 10: 12; Start 01/21/17 at 17:00 Dextrose/Sodium Chloride 1,000 ml @ 100 mls/hr Q10H IV Last administered on 23:36; Start 01/21/17 at 14:31; Stop 01/24/17 at 11:33; Status DC Prochlorperazine Maleate (Compazine) 10 mg PRN Q4HRS PRN PO NAUSEA/VOMITING; Start 01/21/17 at 14:45 Metoclopramide HCl (Reglan) 10 mg PRN Q4HRS PRN IV NAUSEA/VOMITING; Start 01/21 at 14:45 Magnesium Hydroxide (Milk Of Magnesia) 2,400 mg 1X PRN PRN PO CONSTIPATION; Start 01/22/17 at 06:00; Stop 01/23/17 at 05:59; Status DC Bisacodyl (Dulcolax Supp) 10 mg 1X PRN PRN AR CONSTIPATION; Start 01/22/17 at 16:00; Stop 01/23/17 at 16:00; Status DC Acetaminophen (Tylenol) 650 mg PRN Q4HRS PRN PO MILD PAIN / TEMP Last administered on 01/22/17 22:19; Start 01/21/17 at 14:45 Zolpidem Tartrate (Ambien) 5 mg PRN QHS PRN PO INSOMNIA, MAY REPEAT IN 1HR; Start 01/21/17 at 14:45 Calcium Carbonate/ Glycine (Tums) 500 mg PRN QID PRN PO INDIGESTION Last administered on 01/23/17 15:52; Start 01/21/17 at 14:45 Morphine Sulfate 4 mg PRN Q1HR PRN IV PAIN; Start 01/21/17 at 14:45 Morphine Sulfate 6 mg PRN Q1HR PRN IV PAIN; Start 01/21/17 at 14:45 Morphine Sulfate 8 mg PRN Q1HR PRN IV PAIN; Start 01/21/17 at 14:45 Sodium Chloride (Normal Saline Flush) 10 ml QSHIFT PRN IV AFTER MEDS AND BLOOD DRAWS; Start 01/21/17 at 14:45 Fentanyl Citrate (Fentanyl 2ml Vial) 50 mcg PRN Q1HR PRN IV PAIN; Start at 14:45 Prochlorperazine Edisylate (Compazine) 10 mg PRN Q4HRS PRN IV NAUSEA/VOMITING Last administered on 01/23/17 19:30; Start 01/21/17 at 14:45 Dextrose (Dextrose 50%-Water Syringe) 12.5 gm PRN Q15MIN PRN IV SEE COMMENTS; Start 01/21/17 at 14:45 Cefazolin Sodium 1 gm/Sodium Chloride 50 ml @ 100 mls/hr Q6H IV ; Start at 16:00; Stop 01/21/17 at 16:41; Status DC Apixaban (Eliquis) 2.5 mg BID PO Last administered on 01/24/17 10:12; Start at 21:00 Diltiazem HCl (Cardizem Cd) 300 mg DAILYWSUP PO Last administered on 01/23/17 18:36; Start 01/21/17 at 17:00 Levothyroxine Sodium (Synthroid) 88 mcg DAILY06 PO Last administered on 06:52; Start 01/22/17 at 06:00 Potassium Chloride (Klor-Con) 10 meq TIDWMEALS PO Last administered on 12:28; Start 01/22/17 at 08:00 Pantoprazole Sodium (Protonix) 40 mg DAILYAC PO Last administered on 01/24/17 10:11; Start 01/22/17 at 07:30 Zolpidem Tartrate (Ambien) 5 mg QHS PO Last administered on 01/22/17 22:19; Start 01/21/17 at 21:00 Sodium Chloride 1,000 ml @ 75 mls/hr 1X ONCE IV Last administered on 17:40; Start 01/21/17 at 15:45; Stop 01/22/17 at 05:04; Status DC Cefazolin Sodium 1 gm/Sodium Chloride 50 ml @ 100 mls/hr Q6H IV Last administered on 01/22/17 08:00; Start 01/21/17 at 20:00; Stop 01/22/17 at 08:29 ; Status DC Pantoprazole Sodium (Protonix) 40 mg 1X ONCE PO Last administered on 17:38; Start 01/21/17 at 18:00; Stop 01/21/17 at 18:01; Status DC Throat Lozenges (Cepacol Sore Throat Lozenge) 1 hannah PRN Q2HRS PRN PO SORE THROAT Last administered on 01/24/17 03:50; Start 01/23/17 at 13:00 Throat Lozenges (Chloraseptic) 1 spray PRN Q2HR PRN PO SORE THROAT; Start 01/23 at 13:00 Polyethylene Glycol (miraLAX PACKET) 17 gm PRN DAILY PRN PO CONSTIPATION; Start 01/23/17 at 15:30 Docusate Sodium (Colace) 100 mg PRN DAILY PRN PO CONSTIPATION Last administered on 01/23/17 18:34; Start 01/23/17 at 15:30 Potassium Chloride (Klor-Con) 40 meq 1X ONCE PO Last administered on 12:27; Start 01/24/17 at 12:15; Stop 01/24/17 at 12:16; Status DC Active Scripts Active Diltiazem 24HR Cd (Diltiazem Hcl) 300 Mg Cap.er.24h 300 Mg PO DAILYWSUP sig: one p.o. daily with evening meal Eliquis (Apixaban) 2.5 Mg Tablet 2.5 Mg PO BID Reported Zolpidem Tartrate 10 Mg Tablet 0.5 Tab PO QHS Omeprazole 40 Mg Capsule.dr 1 Cap PO DAILY Levothyroxine Sodium 88 Mcg Tablet Unknown Dose PO DAILY Potassium Citrate 10 Meq Tablet.er 1 Tab PO TID Vitals/I & O Vital Sign - Last 24 Hours 01/23/17 01/23/17 01/23/17 01/23/17 15:00 15:51 15:52 18:36 Temp 98.9 98.9 Pulse 85 85 Resp 18 B/P (MAP) 127/68 (87) 127/68 Pulse Ox 96 O2 Delivery Room Air Nasal Cannula BiPAP/CPAP O2 Flow Rate 3.0 3.0 01/23/17 01/23/17 01/23/17 01/23/17 18:38 19:00 19:38 20:00 Temp 98.6 98.6 Pulse 96 Resp 18 20 B/P (MAP) 153/63 (93) Pulse Ox 93 96 O2 Delivery Nasal Cannula Nasal Cannula Nasal Cannula Nasal Cannula O2 Flow Rate 3.0 3.0 3.0 3.0 01/23/17 01/24/17 01/24/17 01/24/17 23:00 03:00 07:45 08:00 Temp 98.7 98.9 98.1 98.7 98.9 98.1 Pulse 98 90 91 Resp 18 18 20 B/P (MAP) 164/81 (108) 152/72 (98) 151/76 (101) Pulse Ox 93 96 95 O2 Delivery Nasal Cannula Nasal Cannula Nasal Cannula Nasal Cannula O2 Flow Rate 3.0 2.0 2.0 2.0 01/24/17 10:30 Temp 97.5 97.5 Pulse 93 Resp 20 B/P (MAP) 138/56 (83) Pulse Ox 94 O2 Delivery Nasal Cannula O2 Flow Rate 2.0 Intake and Output 01/23/17 01/23/17 01/24/17 15:00 23:00 07:00 Intake Total 180 ml 180 ml Output Total 1 ml Balance 180 ml 180 ml -1 ml SOHAIL MARTINES MD Jan 24, 2017 15:04
[2017-01-24] MEDS ORDERED: FUROSEMIDE 40 MG TABLET. PO ONE (15:30)
[2017-01-24 15:57] VITALS: BP 116/52
--- NOTE | 2017-01-24 16:12 | RAD ---
Portable chest, 01/24/2017: History: Shortness of breath Comparison is made to a study from 01/21/2017. The heart is mildly enlarged. There is mild tortuosity and calcific plaquing of the thoracic aorta. The pulmonary vascularity is normal. No pulmonary infiltrates are seen. There is no evidence of pleural fluid. The bony structures are demineralized. IMPRESSION: No acute cardiopulmonary abnormality is detected.
--- NOTE | 2017-01-24 16:23 | PDOC ---
PROGRESS NOTES Subjective Subjective Doing better today. Objective Vital Signs Vital Signs Date Time Temp Pulse Resp B/P (MAP) Pulse Ox O2 Delivery O2 Flow Rate FiO2 01/24/17 15:57 98.1 80 18 116/52 (73) 96 Nasal Cannula 2.0 98.1 Physical Exam Sitting up in recliner. Hip dressing dry and intact. Calf soft and NT with neg Clifford's. Good df/pf. NVI. Labs Laboratory Tests Test 01/23/17 05:10 01/24/17 06:24 White Blood Count 10.4 x10^3/uL (4.0-11.0) 9.7 x10^3/uL (4.0-11.0) Red Blood Count 3.01 x10^6/uL (3.50-5.40) 3.25 x10^6/uL (3.50-5.40) Hemoglobin 9.5 g/dL (12.0-15.5) 10.2 g/dL (12.0-15.5) Hematocrit 27.7 % (36.0-47.0) 29.9 % (36.0-47.0) Mean Corpuscular Volume 92 fL (79-100) 92 fL (79-100) Mean Corpuscular Hemoglobin 32 pg (25-35) 31 pg (25-35) Mean Corpuscular Hemoglobin Concent 34 g/dL (31-37) 34 g/dL (31-37) Red Cell Distribution Width 16.6 % (11.5-14.5) 16.7 % (11.5-14.5) Platelet Count 191 x10^3/uL (140-400) 209 x10^3/uL (140-400) Neutrophils (%) (Auto) 79 % (31-73) 81 % (31-73) Lymphocytes (%) (Auto) 12 % (24-48) 11 % (24-48) Monocytes (%) (Auto) 9 % (0-9) 7 % (0-9) Eosinophils (%) (Auto) 0 % (0-3) 1 % (0-3) Basophils (%) (Auto) 0 % (0-3) 0 % (0-3) Neutrophils # (Auto) 8.2 x10^3uL (1.8-7.7) 7.8 x10^3uL (1.8-7.7) Lymphocytes # (Auto) 1.2 x10^3/uL (1.0-4.8) 1.1 x10^3/uL (1.0-4.8) Monocytes # (Auto) 0.9 x10^3/uL (0.0-1.1) 0.7 x10^3/uL (0.0-1.1) Eosinophils # (Auto) 0.0 x10^3/uL (0.0-0.7) 0.1 x10^3/uL (0.0-0.7) Basophils # (Auto) 0.0 x10^3/uL (0.0-0.2) 0.0 x10^3/uL (0.0-0.2) Sodium Level 139 mmol/L (136-145) 134 mmol/L (136-145) Potassium Level 3.6 mmol/L (3.5-5.1) 3.4 mmol/L (3.5-5.1) Chloride Level 105 mmol/L (98-107) 98 mmol/L (98-107) Carbon Dioxide Level 27 mmol/L (21-32) 30 mmol/L (21-32) Anion Gap 7 (6-14) 6 (6-14) Blood Urea Nitrogen 5 mg/dL (7-20) 3 mg/dL (7-20) Creatinine 0.5 mg/dL (0.6-1.0) 0.4 mg/dL (0.6-1.0) Estimated GFR (Cockcroft-Gault) 117.0 151.3 Glucose Level 102 mg/dL (70-99) 119 mg/dL (70-99) Calcium Level 8.1 mg/dL (8.5-10.1) 7.9 mg/dL (8.5-10.1) Creatine Kinase 207 U/L (26-192) Creatine Kinase MB (Mass) 2.1 ng/mL (0.0-3.6) Creatine Kinase MB Relative Index 1.0 % (0-4) Troponin I Quantitative < 0.017 ng/mL (0.000-0.055) Laboratory Tests Test 01/24/17 06:24 White Blood Count 9.7 x10^3/uL (4.0-11.0) Red Blood Count 3.25 x10^6/uL (3.50-5.40) Hemoglobin 10.2 g/dL (12.0-15.5) Hematocrit 29.9 % (36.0-47.0) Mean Corpuscular Volume 92 fL (79-100) Mean Corpuscular Hemoglobin 31 pg (25-35) Mean Corpuscular Hemoglobin Concent 34 g/dL (31-37) Red Cell Distribution Width 16.7 % (11.5-14.5) Platelet Count 209 x10^3/uL (140-400) Neutrophils (%) (Auto) 81 % (31-73) Lymphocytes (%) (Auto) 11 % (24-48) Monocytes (%) (Auto) 7 % (0-9) Eosinophils (%) (Auto) 1 % (0-3) Basophils (%) (Auto) 0 % (0-3) Neutrophils # (Auto) 7.8 x10^3uL (1.8-7.7) Lymphocytes # (Auto) 1.1 x10^3/uL (1.0-4.8) Monocytes # (Auto) 0.7 x10^3/uL (0.0-1.1) Eosinophils # (Auto) 0.1 x10^3/uL (0.0-0.7) Basophils # (Auto) 0.0 x10^3/uL (0.0-0.2) Sodium Level 134 mmol/L (136-145) Potassium Level 3.4 mmol/L (3.5-5.1) Chloride Level 98 mmol/L (98-107) Carbon Dioxide Level 30 mmol/L (21-32) Anion Gap 6 (6-14) Blood Urea Nitrogen 3 mg/dL (7-20) Creatinine 0.4 mg/dL (0.6-1.0) Estimated GFR (Cockcroft-Gault) 151.3 Glucose Level 119 mg/dL (70-99) Calcium Level 7.9 mg/dL (8.5-10.1) Creatine Kinase 207 U/L (26-192) Creatine Kinase MB (Mass) 2.1 ng/mL (0.0-3.6) Creatine Kinase MB Relative Index 1.0 % (0-4) Troponin I Quantitative < 0.017 ng/mL (0.000-0.055) Assessment Assessment POD #3 right hip IM nail Problems: Plan Plan of Care Continue POC including DVT ppx and therapy. May WBAT with walker. From ortho standpoint, may be d/c to [facility]. F/u in 10-14 days. MAXIMILIAN JAMES Jan 24, 2017 16:23
[2017-01-24] MEDS: POLYETHYLENE GLYCOL 3350 17 GM PACKET. PO PRN (17:09)
[2017-01-24 19:00] VITALS: BP 144/60
[2017-01-24] MEDS: ZOLPIDEM 5 MG TABLET. PO SCH (21:00)
[2017-01-24] MEDS: HYDROcodone/APAP 7.5/325MG 1 TAB TABLET PO PRN (21:26)
[2017-01-24 23:00] VITALS: BP 124/59
[2017-01-25 03:00] VITALS: BP 142/68
[2017-01-25 05:17] LABS: BASO % 0 % (0-3); EOS % 1 % (0-3); HEMATOCRIT 28.7 % (36.0-47.0); HEMOGLOBIN 9.7 g/dL (12.0-15.5); LYMPH # 1.1 x10^3/uL (1.0-4.8); LYMPH % 14 % (24-48); MEAN CORPUSCULAR HEMOGLOBIN 31 pg (25-35); MEAN CORPUSCULAR HGB CONC 34 g/dL (31-37); MEAN CORPUSCULAR VOLUME 93 fL (79-100); MONO % 8 % (0-9); NEUT % 77 % (31-73); PLATELET COUNT 228 x10^3/uL (140-400); RED BLOOD COUNT 3.07 x10^6/uL (3.50-5.40); RED CELL DISTRIBUTION WIDTH 16.3 % (11.5-14.5)
[2017-01-25 05:58] LABS: CALCIUM 8.1 mg/dL (8.5-10.1); CREATININE 0.5 mg/dL (0.6-1.0); POTASSIUM 3.8 mmol/L (3.5-5.1)
[2017-01-25] MEDS: LEVOTHYROXINE 88 MCG TABLET PO SCH (06:40)
[2017-01-25] MEDS: PANTOPRAZOLE 40 MG TABLET.DR. PO SCH (06:40)
[2017-01-25 07:57] VITALS: BP 116/72
[2017-01-25] MEDS: MULTIVITAMIN with MINERAL TABLET. PO SCH (09:02)
[2017-01-25] MEDS: APIXABAN 2.5 MG TABLET. PO SCH (09:02)
[2017-01-25] MEDS: POTASSIUM CHLORIDE 10 MEQ TABLET.ER. PO SCH ×2 (09:03→12:31)
[2017-01-25] MEDS: FERROUS SULFATE 325 MG TABLET. PO SCH (09:03)
[2017-01-25] MEDS: SENNOSIDES/DOCUSATE 8.6/50MG TABLET. PO SCH (09:03)
[2017-01-25] MEDS: POLYETHYLENE GLYCOL 3350 17 GM PACKET. PO PRN (09:07)
[2017-01-25] MEDS: traMADol 50 MG TABLET PO PRN (09:10)
--- NOTE | 2017-01-25 09:26 | PDOC ---
PROGRESS NOTES Subjective Subjective States hip pain is minimal, has more pain in her quad today. Objective Vital Signs Vital Signs Date Time Temp Pulse Resp B/P (MAP) Pulse Ox O2 Delivery O2 Flow Rate FiO2 01/25/17 09:10 16 Room Air 01/25/17 07:57 98.1 94 116/72 (87) 92 98.1 01/25/17 03:00 2.0 Physical Exam Sitting up in bed. Right hip Aquacel dressing dry and intact. Thigh and calf soft and nontender with negative Clifford's sign. Good dorsiflexion and plantarflexion with negative Clifford's sign. Peripheral pulses and light touch sensation intact. Labs Laboratory Tests Test 01/24/17 06:24 01/25/17 04:15 White Blood Count 9.7 x10^3/uL (4.0-11.0) 8.0 x10^3/uL (4.0-11.0) Red Blood Count 3.25 x10^6/uL (3.50-5.40) 3.07 x10^6/uL (3.50-5.40) Hemoglobin 10.2 g/dL (12.0-15.5) 9.7 g/dL (12.0-15.5) Hematocrit 29.9 % (36.0-47.0) 28.7 % (36.0-47.0) Mean Corpuscular Volume 92 fL (79-100) 93 fL (79-100) Mean Corpuscular Hemoglobin 31 pg (25-35) 31 pg (25-35) Mean Corpuscular Hemoglobin Concent 34 g/dL (31-37) 34 g/dL (31-37) Red Cell Distribution Width 16.7 % (11.5-14.5) 16.3 % (11.5-14.5) Platelet Count 209 x10^3/uL (140-400) 228 x10^3/uL (140-400) Neutrophils (%) (Auto) 81 % (31-73) 77 % (31-73) Lymphocytes (%) (Auto) 11 % (24-48) 14 % (24-48) Monocytes (%) (Auto) 7 % (0-9) 8 % (0-9) Eosinophils (%) (Auto) 1 % (0-3) 1 % (0-3) Basophils (%) (Auto) 0 % (0-3) 0 % (0-3) Neutrophils # (Auto) 7.8 x10^3uL (1.8-7.7) 6.1 x10^3uL (1.8-7.7) Lymphocytes # (Auto) 1.1 x10^3/uL (1.0-4.8) 1.1 x10^3/uL (1.0-4.8) Monocytes # (Auto) 0.7 x10^3/uL (0.0-1.1) 0.6 x10^3/uL (0.0-1.1) Eosinophils # (Auto) 0.1 x10^3/uL (0.0-0.7) 0.1 x10^3/uL (0.0-0.7) Basophils # (Auto) 0.0 x10^3/uL (0.0-0.2) 0.0 x10^3/uL (0.0-0.2) Sodium Level 134 mmol/L (136-145) 135 mmol/L (136-145) Potassium Level 3.4 mmol/L (3.5-5.1) 3.8 mmol/L (3.5-5.1) Chloride Level 98 mmol/L (98-107) 99 mmol/L (98-107) Carbon Dioxide Level 30 mmol/L (21-32) 30 mmol/L (21-32) Anion Gap 6 (6-14) 6 (6-14) Blood Urea Nitrogen 3 mg/dL (7-20) 8 mg/dL (7-20) Creatinine 0.4 mg/dL (0.6-1.0) 0.5 mg/dL (0.6-1.0) Estimated GFR (Cockcroft-Gault) 151.3 117.0 Glucose Level 119 mg/dL (70-99) 126 mg/dL (70-99) Calcium Level 7.9 mg/dL (8.5-10.1) 8.1 mg/dL (8.5-10.1) Creatine Kinase 207 U/L (26-192) Creatine Kinase MB (Mass) 2.1 ng/mL (0.0-3.6) Creatine Kinase MB Relative Index 1.0 % (0-4) Troponin I Quantitative < 0.017 ng/mL (0.000-0.055) Laboratory Tests Test 01/25/17 04:15 White Blood Count 8.0 x10^3/uL (4.0-11.0) Red Blood Count 3.07 x10^6/uL (3.50-5.40) Hemoglobin 9.7 g/dL (12.0-15.5) Hematocrit 28.7 % (36.0-47.0) Mean Corpuscular Volume 93 fL (79-100) Mean Corpuscular Hemoglobin 31 pg (25-35) Mean Corpuscular Hemoglobin Concent 34 g/dL (31-37) Red Cell Distribution Width 16.3 % (11.5-14.5) Platelet Count 228 x10^3/uL (140-400) Neutrophils (%) (Auto) 77 % (31-73) Lymphocytes (%) (Auto) 14 % (24-48) Monocytes (%) (Auto) 8 % (0-9) Eosinophils (%) (Auto) 1 % (0-3) Basophils (%) (Auto) 0 % (0-3) Neutrophils # (Auto) 6.1 x10^3uL (1.8-7.7) Lymphocytes # (Auto) 1.1 x10^3/uL (1.0-4.8) Monocytes # (Auto) 0.6 x10^3/uL (0.0-1.1) Eosinophils # (Auto) 0.1 x10^3/uL (0.0-0.7) Basophils # (Auto) 0.0 x10^3/uL (0.0-0.2) Sodium Level 135 mmol/L (136-145) Potassium Level 3.8 mmol/L (3.5-5.1) Chloride Level 99 mmol/L (98-107) Carbon Dioxide Level 30 mmol/L (21-32) Anion Gap 6 (6-14) Blood Urea Nitrogen 8 mg/dL (7-20) Creatinine 0.5 mg/dL (0.6-1.0) Estimated GFR (Cockcroft-Gault) 117.0 Glucose Level 126 mg/dL (70-99) Calcium Level 8.1 mg/dL (8.5-10.1) Assessment Assessment POD #4 right hip IM nail Problems: Plan Plan of Care Continue POC including DVT ppx and PT/OT. Plan for discharge to today. May WBAT with walker. F/u in 10-14 days. MAXIMILIAN JAMES Jan 25, 2017 09:26
[2017-01-25 10:56] VITALS: BP 115/54
[2017-01-25] MEDS ORDERED: DOCU-109 PO (11:45)
[2017-01-25] MEDS ORDERED: CALC200T23 PO (11:45)
[2017-01-25] MEDS ORDERED: POLY17PO3 PO (11:45)
[2017-01-25] MEDS ORDERED: TRAM50TA PO (11:45)
[2017-01-25] MEDS ORDERED: HYDR-2762 PO (11:45)
[2017-01-25 14:50] VITALS: BP 114/67
--- NOTE | 2017-01-25 15:20 | PDOC3 ---
Discharge Summary Visit Information Date of Admission: Jan 21, 2017 Date of Discharge: Jan 25, 2017 Admitting Diagnosis: fall, hip pain Final Diagnosis Acute closed right intertrochanteric hip fracture status post intramedullary implant. "nail" Chronic A. fib rate controlled Hypertension Hypothyroidism GERD Problems Medical Problems: (1) Hip fracture, right Status: Acute Brief Hospital Course Allergies Allergies Coded Allergies Type Severity Reaction Last Updated Verified codeine Allergy Severe Shortness of Air 01/21/17 Yes Vital Signs Vital Signs Date Time Temp Pulse Resp B/P (MAP) Pulse Ox O2 Delivery O2 Flow Rate FiO2 01/25/17 14:50 98.6 84 18 114/67 (83) 94 Room Air 98.6 01/25/17 08:00 2.0 Lab Results Laboratory Tests Test 01/24/17 06:24 01/25/17 04:15 White Blood Count 9.7 x10^3/uL (4.0-11.0) 8.0 x10^3/uL (4.0-11.0) Red Blood Count 3.25 x10^6/uL (3.50-5.40) 3.07 x10^6/uL (3.50-5.40) Hemoglobin 10.2 g/dL (12.0-15.5) 9.7 g/dL (12.0-15.5) Hematocrit 29.9 % (36.0-47.0) 28.7 % (36.0-47.0) Mean Corpuscular Volume 92 fL (79-100) 93 fL (79-100) Mean Corpuscular Hemoglobin 31 pg (25-35) 31 pg (25-35) Mean Corpuscular Hemoglobin Concent 34 g/dL (31-37) 34 g/dL (31-37) Red Cell Distribution Width 16.7 % (11.5-14.5) 16.3 % (11.5-14.5) Platelet Count 209 x10^3/uL (140-400) 228 x10^3/uL (140-400) Neutrophils (%) (Auto) 81 % (31-73) 77 % (31-73) Lymphocytes (%) (Auto) 11 % (24-48) 14 % (24-48) Monocytes (%) (Auto) 7 % (0-9) 8 % (0-9) Eosinophils (%) (Auto) 1 % (0-3) 1 % (0-3) Basophils (%) (Auto) 0 % (0-3) 0 % (0-3) Neutrophils # (Auto) 7.8 x10^3uL (1.8-7.7) 6.1 x10^3uL (1.8-7.7) Lymphocytes # (Auto) 1.1 x10^3/uL (1.0-4.8) 1.1 x10^3/uL (1.0-4.8) Monocytes # (Auto) 0.7 x10^3/uL (0.0-1.1) 0.6 x10^3/uL (0.0-1.1) Eosinophils # (Auto) 0.1 x10^3/uL (0.0-0.7) 0.1 x10^3/uL (0.0-0.7) Basophils # (Auto) 0.0 x10^3/uL (0.0-0.2) 0.0 x10^3/uL (0.0-0.2) Sodium Level 134 mmol/L (136-145) 135 mmol/L (136-145) Potassium Level 3.4 mmol/L (3.5-5.1) 3.8 mmol/L (3.5-5.1) Chloride Level 98 mmol/L (98-107) 99 mmol/L (98-107) Carbon Dioxide Level 30 mmol/L (21-32) 30 mmol/L (21-32) Anion Gap 6 (6-14) 6 (6-14) Blood Urea Nitrogen 3 mg/dL (7-20) 8 mg/dL (7-20) Creatinine 0.4 mg/dL (0.6-1.0) 0.5 mg/dL (0.6-1.0) Estimated GFR (Cockcroft-Gault) 151.3 117.0 Glucose Level 119 mg/dL (70-99) 126 mg/dL (70-99) Calcium Level 7.9 mg/dL (8.5-10.1) 8.1 mg/dL (8.5-10.1) Creatine Kinase 207 U/L (26-192) Creatine Kinase MB (Mass) 2.1 ng/mL (0.0-3.6) Creatine Kinase MB Relative Index 1.0 % (0-4) Troponin I Quantitative < 0.017 ng/mL (0.000-0.055) Laboratory Tests Test 01/25/17 04:15 White Blood Count 8.0 x10^3/uL (4.0-11.0) Red Blood Count 3.07 x10^6/uL (3.50-5.40) Hemoglobin 9.7 g/dL (12.0-15.5) Hematocrit 28.7 % (36.0-47.0) Mean Corpuscular Volume 93 fL (79-100) Mean Corpuscular Hemoglobin 31 pg (25-35) Mean Corpuscular Hemoglobin Concent 34 g/dL (31-37) Red Cell Distribution Width 16.3 % (11.5-14.5) Platelet Count 228 x10^3/uL (140-400) Neutrophils (%) (Auto) 77 % (31-73) Lymphocytes (%) (Auto) 14 % (24-48) Monocytes (%) (Auto) 8 % (0-9) Eosinophils (%) (Auto) 1 % (0-3) Basophils (%) (Auto) 0 % (0-3) Neutrophils # (Auto) 6.1 x10^3uL (1.8-7.7) Lymphocytes # (Auto) 1.1 x10^3/uL (1.0-4.8) Monocytes # (Auto) 0.6 x10^3/uL (0.0-1.1) Eosinophils # (Auto) 0.1 x10^3/uL (0.0-0.7) Basophils # (Auto) 0.0 x10^3/uL (0.0-0.2) Sodium Level 135 mmol/L (136-145) Potassium Level 3.8 mmol/L (3.5-5.1) Chloride Level 99 mmol/L (98-107) Carbon Dioxide Level 30 mmol/L (21-32) Anion Gap 6 (6-14) Blood Urea Nitrogen 8 mg/dL (7-20) Creatinine 0.5 mg/dL (0.6-1.0) Estimated GFR (Cockcroft-Gault) 117.0 Glucose Level 126 mg/dL (70-99) Calcium Level 8.1 mg/dL (8.5-10.1) Brief Hospital Course Ms. Delgadillo is a 86 old fall, hip fracture, seen by CECILY bowen on POD #4 right hip IM nail plan fu with jessi, cont PTOT had dyspnea from IV fluid, rapid response on 01/23, IV lasix and better pain with percocet on meds for afib to subacute rehab Discharge Information Condition at Discharge: Improved Follow Up: Weeks Disposition/Orders: D/C to Another Facility ([facility]) Scheduled Apixaban (Eliquis), 2.5 MG PO BID Diltiazem Hcl (Diltiazem 24HR Cd), 300 MG PO DAILYWSUP Levothyroxine Sodium (Levothyroxine Sodium), Unknown Dose PO DAILY, (Reported) Omeprazole (Omeprazole), 1 CAP PO DAILY, (Reported) Potassium Citrate (Potassium Citrate), 1 TAB PO TID, (Reported) Zolpidem Tartrate (Zolpidem Tartrate), 0.5 TAB PO QHS, (Reported) Scheduled PRN Calcium Carbonate (Calcium Carbonate), 500 MG PO PRN QID PRN for INDIGESTION Docusate Sodium (Colace), 100 MG PO PRN DAILY PRN for CONSTIPATION Hydrocodone Bit/Acetaminophen (Hydrocodone-Apap 7.5-325 ), 1 TAB PO PRN Q3HRS PRN for PAIN Polyethylene Glycol 3350 (Polyethylene Glycol 3350), 17 GM PO PRN DAILY PRN for CONSTIPATION Tramadol Hcl (Tramadol Hcl), 50 MG PO PRN QID PRN for PAIN Patient Instructions Patient Instructions > 30min SONG JOHNSON MD Jan 25, 2017 15:20
== END 2017-01-25 16:00 | DRG 481 ==
LOC: ER 06:51 → ED HOLD 07:51 → 4 NORTH 09:46
PROVIDERS: ADMIT Internal Medicine; ATTEND Internal Medicine
PROC: 0QS606Z Reposition Right Upper Femur with Intramedullary Internal Fixation Device, Open Approach (ICD-10-PCS; principal; 2017-01-21 13:15)
DX: S72.141A Displaced intertrochanteric fracture of right femur, initial encounter for closed fracture (principal); D62 Acute posthemorrhagic anemia; E03.9 Hypothyroidism, unspecified; E78.00 Pure hypercholesterolemia, unspecified; E78.5 Hyperlipidemia, unspecified; E86.0 Dehydration; I10 Essential (primary) hypertension; I48.2 Chronic atrial fibrillation; K21.9 Gastro-esophageal reflux disease without esophagitis; W01.0XXA Fall on same level from slipping, tripping and stumbling without subsequent striking against object, initial encounter; Y92.007 Garden or yard of unspecified non-institutional (private) residence as the place of occurrence of the external cause; Z88.5 Allergy status to narcotic agent; Z90.49 Acquired absence of other specified parts of digestive tract; Z90.710 Acquired absence of both cervix and uterus; Z87.891 Personal history of nicotine dependence; Y99.8 Other external cause status
CPT/HCPCS: 36415; 70450; 71010; 72125; 73502; 76000; 80048; 80076; 82553; 84484; 85007; 85027; 85610; 85730; 86850; 86900; 86901; 87641; 93005; 96361; 96374; C1713; C1887; J0171; J0690; J0780; J1100; J1170; J2001; J2405; J2704; J2795; J3010; J7030; J7120; J7613; S0028; 97110; 97116; 97530; 97535; 99285-25

== ENCOUNTER → 2017-04-12 | Outpatient (CLI) | payer MEDICARE ==
[~2017-04-12] MED LIST changes: +CALC200T23 PO; +DOCU-109 PO; +HYDR-2762 PO; +METO-239 PO; -METO25TA9 PO; +POLY17PO3 PO; +TRAM50TA PO
--- NOTE | 2017-04-12 10:36 | KCIC ---
Single view abdomen dated 04/12/2017. Comparison made to CT dated 03/31/2016. CLINICAL INDICATION: Chronic left flank pain. History of renal stone. FINDINGS: Small curvilinear calcification at the right renal hilum is unchanged and likely related to vascular calcification. No calcific density is otherwise identified at the substance of either kidney. Calcifications in the pelvis and left upper quadrant, likely phleboliths or vascular calcifications. Bowel gas pattern is nonobstructive. IMPRESSION: 1. No plain film evidence of renal or ureteral stone. Electronically signed by: Bao Munguia MD (04/12/2017 10:32 AM) [id number]
== END | disposition home or self-care (01) ==
LOC: KCIC 08:00
PROVIDERS: ATTEND Urology
DX: N20.0 Calculus of kidney (principal)
CPT/HCPCS: 74000

== ENCOUNTER 2018-01-18 07:32 | Emergency (ER) | payer MEDICARE ==
[2018-01-18 08:13] LABS: ADD MAN DIFF? NO
[2018-01-18 08:16] LABS: BASO % 1 % (0-3); EOS # 0.1 x10^3/uL (0.0-0.7); EOS % 1 % (0-3); HEMATOCRIT 40.5 % (36.0-47.0); HEMOGLOBIN 13.7 g/dL (12.0-15.5); LYMPH # 1.3 x10^3/uL (1.0-4.8); LYMPH % 22 % (24-48); MEAN CORPUSCULAR HEMOGLOBIN 31 pg (25-35); MEAN CORPUSCULAR HGB CONC 34 g/dL (31-37); MEAN CORPUSCULAR VOLUME 92 fL (79-100); MONO # 0.4 x10^3/uL (0.0-1.1); MONO % 6 % (0-9); NEUT # 4.1 x10^3uL (1.8-7.7); NEUT % 70 % (31-73); PLATELET COUNT 261 x10^3/uL (140-400); RED CELL DISTRIBUTION WIDTH 15.8 % (11.5-14.5); WHITE BLOOD COUNT 5.8 x10^3/uL (4.0-11.0)
[2018-01-18 08:28] LABS: ANION GAP 11 (6-14); BLOOD UREA NITROGEN 10 mg/dL (7-20); CALCIUM 8.8 mg/dL (8.5-10.1); CARBON DIOXIDE 24 mmol/L (21-32); CHLORIDE 105 mmol/L (98-107); CREATININE 0.7 mg/dL (0.6-1.0); GFR 79.2; GLUCOSE 94 mg/dL (70-99); MAGNESIUM 1.8 mg/dL (1.8-2.4); POTASSIUM 3.9 mmol/L (3.5-5.1); SODIUM 140 mmol/L (136-145)
[2018-01-18 08:33] LABS: TROPONINI < 0.017 ng/mL (0.000-0.055)
[2018-01-18] MEDS: LORazepam 1 MG TABLET PO (08:35)
== END 2018-01-18 09:22 | disposition home or self-care (01) ==
LOC: ER 07:32
DX: R42 Dizziness and giddiness (principal); F41.9 Anxiety disorder, unspecified; I48.91 Unspecified atrial fibrillation; K21.9 Gastro-esophageal reflux disease without esophagitis; E78.00 Pure hypercholesterolemia, unspecified; I10 Essential (primary) hypertension; E03.9 Hypothyroidism, unspecified; Z88.5 Allergy status to narcotic agent
CPT/HCPCS: 36415; 80048; 83735; 84484; 85025; 93005; 99285-25

== ENCOUNTER → 2018-03-29 | Outpatient (CLI) | payer MEDICARE ==
[2018-01-18 09:00] VITALS: BP 165/83
[~2018-03-29] MED LIST changes: +WARF-31 PO; -WARF5TAB7 PO; +WARF7.5T45 PO; -WARF7.5T6 PO
--- NOTE | 2018-03-29 10:46 | CARD ---
MR#: [id number] Date of Study: 03/29/2018 Ordering Physician: ESTEBAN WILLAMS, Referring Physician: ESTEBAN WILLAMS, Tech: Karina Ramírez APPROVED REPORT EXAM: Two-dimensional and M-mode echocardiogram with Doppler and color Doppler. Other Information Quality : GoodHR: 87bpm Rhythm : NSR INDICATION Atrial Fibrillation RISK FACTORS Hypertension 2D DIMENSIONS RVDd3.2 (2.9-3.5cm)Left Atrium(2D)4.1 (1.6-4.0cm) IVSd1.2 (0.7-1.1cm)Aortic Root(2D)2.9 (2.0-3.7cm) LVDd4.3 (3.9-5.9cm)LVOT Diameter2.0 (1.8-2.4cm) PWd1.0 (0.7-1.1cm)LVDs2.6 (2.5-4.0cm) FS (%) 38.9 %SV58.6 ml LVEF(%)69.6 (>50%) Aortic Valve AoV Peak Bacilio.174.4cm/sAoV VTI36.9cm AO Peak GR.12.2mmHgLVOT Peak Bacilio.84.9cm/s AO Mean GR.6mmHgAVA (VMAX)1.50cm2 AI P 1/2 Ocfs937ct Mitral Valve MV E Fxwrygyv95.3cm/sMV DECEL LDII157nm MV A Labmlmnd57.2cm/sE/A Ratio1.7 Pulmonary Valve PV Peak Ygvcuxzn63.0cm/s Tricuspid Valve TR P. Mriydili845oz/sRAP UWMDXISD0qkRz TR Peak Gr.21lnLwELOA31enBj Pulmonary Vein PVa [id number] LEFT VENTRICLE The left ventricle is normal size. There is normal left ventricular wall thickness. The left ventricu lar systolic function is normal. The Ejection Fraction is 60-65%. There is normal LV segmental wall m otion. RIGHT VENTRICLE The right ventricle is normal size. There is normal right ventricular wall thickness. The right ventr icular systolic function is normal. ATRIA The left atrium is mildly dilated. The right atrium is mildly dilated. The interatrial septum is inta ct with no evidence for an atrial septal defect or patent foramen ovale as noted on 2-D or Doppler im aging. AORTIC VALVE The aortic valve is calcified but opens well. Doppler and Color Flow revealed mild aortic regurgitati on. There is no significant aortic valvular stenosis. MITRAL VALVE The mitral valve is moderately thickened. There is no mitral valve stenosis. Doppler and Color-flow r evealed mild mitral regurgitation. TRICUSPID VALVE The tricuspid valve is not well visualized. Doppler and Color Flow revealed trace to mild tricuspid r egurgitation. There is no tricuspid valve stenosis. PULMONIC VALVE The pulmonic valve is not well visualized. Doppler and Color Flow revealed trace pulmonic valvular re gurgitation. GREAT VESSELS The aortic root is normal in size. The IVC is normal in size and collapses >50% with inspiration. PERICARDIAL EFFUSION There is no evidence of significant pericardial effusion. Critical Notification Critical Value: No <Conclusion> The left ventricular systolic function is normal. The Ejection Fraction is 60-65%. There is normal LV segmental wall motion. The left atrium is mildly dilated. Mild aortic regurgitation. Mild mitral regurgitation. Trace to mild tricuspid regurgitation. There is no evidence of significant pericardial effusion. Signed by : Bird Houston, Electronically Approved : 03/29/2018 10:45:34
--- NOTE | 2018-03-29 11:41 | RAD ---
MR#: [id number] Date of Study: 03/29/2018 Ordering Physician: ESTEBAN WILLAMS, Referring Physician: ESTEBAN WILLAMS, Tech: HUNTER Rizvi, RDMS, RTR APPROVED REPORT Patient Location: OUT-PATIENT Laterality:Bilateral Indications pad Risk Factors Hypertension: Doppler Spectral Velocity Analysis Right Left pCCA 67/16 cm/spCCA 61/15 cm/s mCCA 53/11 cm/smCCA 55/16 cm/s dCCA 44/14 cm/sdCCA 51/17 cm/s ECA 87/ cm/sECA 81/ cm/s pICA 98/24 cm/spICA 177/46 cm/s Reji 95/23 cm/smICA 131/31 cm/s dICA 70/24 cm/sdICA 75/18 cm/s Vert. 39/ cm/sVert. 56/ cm/s ICA/CCA 1.46ICA/CCA 2.90 Findings Grayscale images of the bilateral common carotid, external and internal carotid vessels reveal modera te diffuse plaque in the common carotid and carotid bifurcations. Spectral waveforms in the right internal carotid vessels do not reveal any significant flow-limiting stenosis. Overall 0 to less than 50% stenosis based on velocity criteria. ICA to CCA ratio is minimal ly elevated at 1.5. On the left there is moderate stenosis involving the proximal internal carotid artery at 50-69% based on velocity criteria with peak systolic velocities of 177 cm/s. ICA to CCA ratios are elevated at 2. 9. Bilateral vertebral velocities are within normal limits. Critical Notification Critical Value: No <Conclusion> Moderate left-sided carotid arterial disease. Signed by : Esteban Willams, Electronically Approved : 03/29/2018 11:39:43
== END | disposition home or self-care (01) ==
LOC: ECHO 08:21
PROVIDERS: ATTEND Internal Medicine Cardiovascular Disease
DX: I65.23 Occlusion and stenosis of bilateral carotid arteries (principal); I08.3 Combined rheumatic disorders of mitral, aortic and tricuspid valves; I48.2 Chronic atrial fibrillation; I10 Essential (primary) hypertension; F17.210 Nicotine dependence, cigarettes, uncomplicated
CPT/HCPCS: 93306; 93880

== ENCOUNTER → 2018-04-14 | Outpatient (CLI) | payer MEDICARE ==
[2018-01-18 09:00] VITALS: BP 165/83
--- NOTE | 2018-04-14 16:15 | KCIC ---
EXAM: Supine AP view of the abdomen DATE: 04/14/2018 12:00 AM INDICATION: Left renal calculus, COMPARISON: No Prior FINDINGS: No abnormal small or large bowel dilatation. Moderate colonic stool content. No abnormal soft tissue mass effect. No suspicious calcifications are seen although evaluation is limited given moderate overlying stool content and gaseous distention. Evaluation for free intraperitoneal gas is limited on this supine exam. Decreased bone mineral density. Changes are right hip IM nail fixation are partially profiled. IMPRESSION: 1. No evidence for bowel obstruction. 2. No definite renal tract calculus is seen although evaluation limited given overlying bowel gas and stool. Electronically signed by: Jt Ricks MD (04/14/2018 4:11 PM) [id number]
== END | disposition home or self-care (01) ==
LOC: KCIC 07:56
PROVIDERS: ATTEND Urology
DX: N20.0 Calculus of kidney (principal)
CPT/HCPCS: 74018

== ENCOUNTER → 2019-03-23 | Outpatient (CLI) | payer MEDICARE ==
[2018-01-18 09:00] VITALS: BP 165/83
[~2019-03-23] MED LIST changes: -HYDR-2762 PO; +HYDR-2765 PO; +POLY17PO28 PO; -POLY17PO3 PO
--- NOTE | 2019-03-24 07:55 | KCIC ---
Indication: History of renal calculus. Yearly checkup. TECHNIQUE: Single AP view of the abdomen and pelvis COMPARISON: Plain film from 04/14/2018. FINDINGS: Visualized lung bases are clear. Stable curvilinear calcific density seen projecting over the medial aspect of the right kidney. Left kidney silhouette is not well-visualized. Overlapping bowel gas limits evaluation of the kidney stones. No evidence of bowel obstruction. IMPRESSION: The sensitivity of detecting renal stones is limited on this plain film due to overlying bowel gas. Consider evaluation with CT abdomen pelvis without IV contrast. Electronically signed by: Lalo Doe DO (03/24/2019 7:52 AM) [facility]
== END | disposition home or self-care (01) ==
LOC: KCIC 13:54
PROVIDERS: ATTEND Urology
DX: N20.0 Calculus of kidney (principal)
CPT/HCPCS: 74018

== ENCOUNTER → 2020-03-12 | Outpatient (CLI) | payer MEDICARE ==
[2018-01-18 09:00] VITALS: BP 165/83
[~2020-03-12] MED LIST changes: -DIGO125T PO; +DIGO125T3 PO; +OMEP40CA45 PO; -OMEP40CA5 PO; -WARF-78 PO; +WARF5TAB2 PO
--- NOTE | 2020-03-12 14:06 | KCIC ---
PROCEDURE: KUB STUDY DATE: 03/12/2020 CLINICAL INDICATION / HISTORY: Reason: HISTORY RENAL CALCULI. YEARLY CHECKUP / Spl. Instructions: / History: . TECHNIQUE: Single AP image of the abdomen was obtained. COMPARISON: 03/23/2019 and 04/14/2018 abdomen x-ray FINDINGS: The lung bases are clear. A nonobstructive bowel gas pattern is present. Stable curvilinear calcification projecting over the mid pole right renal shadow near the pelvis and punctate adjacent calcification, similar in appearance to the 2018 examination where less bowel gas artifact was present. Left renal shadow again not well seen. No acute osseous abnormality. Right dynamic hip screw and generalized osteopenia. IMPRESSION: Stable appearance to punctate calcifications projecting over the right renal pelvis and curvilinear density over the right midpole right kidney with nonvisualization of the left kidney. Electronically signed by: Diana Muniz MD (03/12/2020 2:03 PM) [id number]
== END | disposition home or self-care (01) ==
LOC: KCIC 10:26
PROVIDERS: ATTEND Urology
DX: N20.0 Calculus of kidney (principal); M85.88 Other specified disorders of bone density and structure, other site; N28.89 Other specified disorders of kidney and ureter
CPT/HCPCS: 74018